=== PATIENT | female | born 1960 | race African-American/Black ===

== ENCOUNTER 2018-04-23 12:04 | Emergency (ER) | payer BC ==
[2018-04-23 13:42] LABS: POC GLUCOSE 275 mg/dL (70-99)
== END 2018-04-23 13:49 | disposition home or self-care (01) ==
LOC: ER 12:04
DX: L03.113 Cellulitis of right upper limb (principal); F41.9 Anxiety disorder, unspecified; E11.9 Type 2 diabetes mellitus without complications; I10 Essential (primary) hypertension
CPT/HCPCS: 82962; 99283

== ENCOUNTER 2020-03-30 12:45 | Inpatient (IN) | payer BC ==
[~2020-03-30] VITALS: Ht 160 cm; Wt 67.3 kg
[~2020-03-30 12:45] MED LIST: AZIT250T PO; CEPH500T PO; INSU100I11 SQ; LISI-130 PO; LISI1TAB19 PO; NAPR-514 PO; PARO20TA3 PO; SULF1TAB24 PO
[2020-03-30 13:27] LABS: HEMATOCRIT 39.1 % (36.0-47.0); HEMOGLOBIN 12.7 g/dL (12.0-15.5); LYMPH % 24 % (24-48); MEAN CORPUSCULAR HEMOGLOBIN 26 pg (25-35); MEAN CORPUSCULAR HGB CONC 33 g/dL (31-37); MEAN CORPUSCULAR VOLUME 80 fL (79-100); MONO % 7 % (0-9); NEUT % 64 % (31-73); PLATELET COUNT 245 x10^3/uL (140-400); RED BLOOD COUNT 4.89 x10^6/uL (3.50-5.40); RED CELL DISTRIBUTION WIDTH 17.8 % (11.5-14.5)
[2020-03-30 13:28] LABS: BASO % 2 % (0-3); EOS # 0.1 x10^3/uL (0.0-0.7); EOS % 3 % (0-3); LYMPH # 0.4 x10^3/uL (1.0-4.8); MONO # 0.1 x10^3/uL (0.0-1.1); NEUT # 1.1 x10^3/uL (1.8-7.7)
[2020-03-30 13:33] LABS: CALCIUM 8.8 mg/dL (8.5-10.1); CREATININE 0.9 mg/dL (0.6-1.0); POTASSIUM 3.6 mmol/L (3.5-5.1); WHITE BLOOD COUNT 1.7 x10^3/uL (4.0-11.0)
[2020-03-30 13:35] LABS: PROTHROMBIN TIME PATIENT 13.9 SEC (11.7-14.0)
[2020-03-30 13:38] LABS: ALBUMIN 3.3 g/dL (3.4-5.0); ALBUMIN/GLOBULIN RATIO 0.7 (1.0-1.7); D-DIMER 2.23 ug/mlFEU (0.00-0.50); TOTAL BILIRUBIN 0.6 mg/dL (0.2-1.0); TOTAL PROTEIN 7.8 g/dL (6.4-8.2)
--- NOTE | 2020-03-30 13:49 | RAD ---
PORTABLE CHEST 1V History: Cough, shortness of air Comparison: April 30, 2011 Findings: Single view of the chest is submitted. There is right internal jugular port catheter with the tip in the region of the mid to inferior aspect of the superior vena cava. There are small bilateral pleural effusions, left greater than right. There is bibasilar airspace opacity, left greater than right. No pneumothorax is identified. Pericardial cardiac silhouette is probably unchanged, partial obscured by pleural effusions and airspace opacity. Impression: 1. There are small left greater than right pleural effusions with adjacent bibasilar airspace opacity which may be due to infiltrates/atelectasis/edema. Electronically signed by: Amaury Ho MD (03/30/2020 1:46 PM) [id number]
[2020-03-30 14:06] LABS: % BASOS 2 % (0-3); % EOS 4 % (0-5); % LYMPHS 26 % (24-48); % MONOS 8 % (0-10); % SEGS 60 % (35-66); ANISOCYTOSIS SLIGHT; PLT ESTIMATE ADEQUATE (ADEQUATE); SCHISTOCYTES OCC
[2020-03-30 14:07] LABS: MICROCYTOSIS SLIGHT
[2020-03-30] MEDS: IOHEXOL 350 MG/ML 100 ML VIAL. IV ONE (14:30)
[2020-03-30] MEDS ORDERED: CONTRAST GIVEN. MC PRN (14:30)
--- NOTE | 2020-03-30 15:25 | RAD ---
Chest CTA History: Chest pain, shortness of air, colon cancer Technique: After bolus of intravenous contrast, CT imaging was performed of the chest. Multiplanar reconstruction images to include MIP reconstruction images are submitted. Exposure: One or more of the following individualized dose reduction techniques were utilized for this examination: 1. Automated exposure control 2. Adjustment of the mA and/or kV according to patient size 3. Use of iterative reconstruction technique. Comparison: None Findings: No pulmonary embolism is identified. There is [id number] dependent right pleural effusion. There is also small left pleural effusion, greater degree of subpulmonic component. There is prominent groundglass infiltrate of the right upper lobe with some interspersed smaller areas of consolidation. There is also some consolidation of the lingula with air bronchograms and also of the right middle lobe with severe bronchograms, difficult to exclude underlying nodularity in this region on this exam. There is somewhat spiculated right lower lobe pulmonary nodule about 1.1 cm image 101 series 3, also likely focus of nodularity of the right lower lobe about 0.8 cm image 104. There is groundglass nodule posteriorly in the right upper lobe about 0.9 cm image 62. There is noncalcified left lower lobe nodule about 0.9 cm image 89 series 3 with somewhat indistinct margins. There is some compressive atelectasis of the left lower lobe near the effusion. Heart is enlarged. There are some calcified bilateral hilar and mediastinal nodes, also some other small noncalcified nodes present. Thoracic aortic caliber is within normal limits, no intraluminal flap. Impression: 1. No pulmonary embolism is identified. 2. There are right greater than left pleural effusions. Heart is enlarged. Component of heart failure is a consideration. 3. There are areas of infiltrate bilaterally as stated, large area of groundglass density of the right upper lobe with some interspersed mild consolidation and areas of consolidation with air bronchograms most notable of the lingula and right middle lobe. There are also separate more defined pulmonary nodules as stated, largest of the right lower lobe with spiculated margin, metastases in the differential possibilities. Short-term follow-up within 1-2 months or PET/CT should be considered. 4. There are some calcified nodes bilaterally as may be sequela of granulomatous disease. Electronically signed by: Amaury Ho MD (03/30/2020 3:22 PM) [id number]
--- NOTE | 2020-03-30 15:32 | PHYS DOC ---
Past Medical History Past Medical History: Anxiety, Diabetes-Type II, Hypertension Additional Past Medical Histor: sciatica Past Surgical History: Other Additional Past Surgical Histo: nasal surgery , throat surgery, PORT PLACED 09/2019 Smoking Status: Former Smoker Alcohol Use: None Drug Use: None General Adult EDM: Chief Complaint: SHORTNESS OF AIR HPI: HPI: Patient is a 60 year old female who presented to ER today for evaluation of nonproductive cough, chest pain, trouble breathing for several days. Patient has history of colon cancer, undergoing chemo treatment, her last chemo was a week ago, she has 1 more treatment left. Patient denies any fever. Patient complains of trouble breathing with exertion. Patient says she is not been exposed to anybody who tested positive for COVID-19, but she went to grocery store. She also said she has altered taste sensation. Review of Systems: Review of Systems: Constitutional: Denies fever or chills. [] Eyes: Denies change in visual acuity. [] HENT: Positive for nasal congestion , no sore throat. [] Respiratory: Positive for cough and shortness of breath. [] Cardiovascular: Positive for chest pain, no edema. [] GI: Denies abdominal pain, nausea, vomiting, bloody stools or diarrhea. [] : Denies dysuria. [] Musculoskeletal: Denies back pain or joint pain. [] Integument: Denies rash. [] Neurologic: Denies headache, focal weakness or sensory changes. [] Endocrine: Denies polyuria or polydipsia. [] Lymphatic: Denies swollen glands. [] Psychiatric: Denies depression or anxiety. [] Heart Score: Risk Factors: Risk Factors: DM, Current or recent (<one month) smoker, HTN, HLP, family history of CAD, obesity. Risk Scores: Score 0 - 3: 2.5% MACE over next 6 weeks - Discharge Home Score 4 - 6: 20.3% MACE over next 6 weeks - Admit for Clinical Observation Score 7 - 10: 72.7% MACE over next 6 weeks - Early Invasive Strategies Current Medications: Current Medications Medications (Trade) Dose Ordered Sig/Efrain Start Time Stop Time Status Last Admin Dose Admin Info (CONTRAST GIVEN -- Rx MONITORING) 1 each PRN DAILY PRN 03/30/20 14:30 04/01/20 14:29 Iohexol (Omnipaque 350 Mg/ml) 90 ml 1X ONCE 03/30/20 14:30 03/30/20 14:31 DC Allergies: Allergies: Allergies Coded Allergies Type Severity Reaction Last Updated Verified No Known Drug Allergies 08/11/14 No Physical Exam: PE: Constitutional: Well developed, well nourished, no acute distress, non-toxic appearance. [] HENT: Normocephalic, atraumatic, bilateral external ears normal, oropharynx moist, no oral exudates, nose normal. [] Eyes: PERRLA, EOMI, conjunctiva normal, no discharge. [] Neck: Normal range of motion, no tenderness, supple, no stridor. [] Cardiovascular:Heart rate regular rhythm, no murmur [] Lungs & Thorax: crackles in both lungs, no respiratory distress. Abdomen: Bowel sounds normal, soft, no tenderness, no masses, no pulsatile masses. [] Skin: Warm, dry, no erythema, no rash. [] Back: No tenderness, no CVA tenderness. [] Extremities: No tenderness, no cyanosis, no clubbing, ROM intact, no edema. [] Neurologic: Alert and oriented X 3, normal motor function, normal sensory function, no focal deficits noted. [] Psychologic: Affect normal, judgement normal, mood normal. [] Current Patient Data: Labs: Laboratory Tests Test 03/30/20 13:10 White Blood Count 1.7 x10^3/uL (4.0-11.0) *L Red Blood Count 4.89 x10^6/uL (3.50-5.40) Hemoglobin 12.7 g/dL (12.0-15.5) Hematocrit 39.1 % (36.0-47.0) Mean Corpuscular Volume 80 fL (79-100) Mean Corpuscular Hemoglobin 26 pg (25-35) Mean Corpuscular Hemoglobin Concent 33 g/dL (31-37) Red Cell Distribution Width 17.8 % (11.5-14.5) H Platelet Count 245 x10^3/uL (140-400) Neutrophils (%) (Auto) 64 % (31-73) Lymphocytes (%) (Auto) 24 % (24-48) Monocytes (%) (Auto) 7 % (0-9) Eosinophils (%) (Auto) 3 % (0-3) Basophils (%) (Auto) 2 % (0-3) Neutrophils # (Auto) 1.1 x10^3/uL (1.8-7.7) L Lymphocytes # (Auto) 0.4 x10^3/uL (1.0-4.8) L Monocytes # (Auto) 0.1 x10^3/uL (0.0-1.1) Eosinophils # (Auto) 0.1 x10^3/uL (0.0-0.7) Basophils # (Auto) 0.0 x10^3/uL (0.0-0.2) Segmented Neutrophils % 60 % (35-66) Lymphocytes % 26 % (24-48) Monocytes % 8 % (0-10) Eosinophils % 4 % (0-5) Basophils % 2 % (0-3) Platelet Estimate Adequate (ADEQUATE) Anisocytosis Slight Microcytosis Slight Schistocytes Occ Prothrombin Time 13.9 SEC (11.7-14.0) Prothrombin Time INR 1.1 (0.8-1.1) Activated Partial Thromboplast Time 22 SEC (24-38) L Fibrinogen 319 mg/dL (200-440) D-Dimer (Obdulia) 2.23 ug/mlFEU (0.00-0.50) H Sodium Level 139 mmol/L (136-145) Potassium Level 3.6 mmol/L (3.5-5.1) Chloride Level 100 mmol/L (98-107) Carbon Dioxide Level 30 mmol/L (21-32) Anion Gap 9 (6-14) Blood Urea Nitrogen 13 mg/dL (7-20) Creatinine 0.9 mg/dL (0.6-1.0) Estimated GFR (Cockcroft-Gault) 77.0 BUN/Creatinine Ratio 14 (6-20) Glucose Level 272 mg/dL (70-99) H Lactic Acid Level 1.6 mmol/L (0.4-2.0) Calcium Level 8.8 mg/dL (8.5-10.1) Total Bilirubin 0.6 mg/dL (0.2-1.0) Aspartate Amino Transferase (AST) 22 U/L (15-37) Alanine Aminotransferase (ALT) 16 U/L (14-59) Alkaline Phosphatase 171 U/L (46-116) H Troponin I Quantitative 0.067 ng/mL (0.000-0.055) Total Protein 7.8 g/dL (6.4-8.2) Albumin 3.3 g/dL (3.4-5.0) L Albumin/Globulin Ratio 0.7 (1.0-1.7) L Laboratory Tests 03/30/20 13:10 Laboratory Tests 03/30/20 13:10 Vital Signs: Vital Signs Date Time Temp Pulse Resp B/P (MAP) Pulse Ox O2 Delivery O2 Flow Rate FiO2 03/30/20 14:34 103 185/108 (133) 93 Room Air 03/30/20 12:57 98.4 16 98.4 EKG: EKG: EKG was done at 1304, heart rate 115 bpm, sinus tachycardia, no ST segment elevation. EKG was read by this physician. Radiology/Procedures: Radiology/Procedures: [][facility] [address] [place] [address] IMAGING REPORT Signed PATIENT: SHAN QUINTANA EACCOUNT: [id number] : 1960 LOCATION: ER AGE: 60 SEX: F EXAM STATUS: REG ER ORD. PHYSICIAN: DAPHNIE RAM DO REASON: soa, chest pain, colon cancer patient PROCEDURE: CT ANGIOGRAPHY CHEST Chest CTA History: Chest pain, shortness of air, colon cancer Technique: After bolus of intravenous contrast, CT imaging was performed of the chest. Multiplanar reconstruction images to include MIP reconstruction images are submitted. Exposure: One or more of the following individualized dose reduction techniques were utilized for this examination: 1. Automated exposure control 2. Adjustment of the mA and/or kV according to patient size 3. Use of iterative reconstruction technique. Comparison: None Findings: No pulmonary embolism is identified. There is [id number] dependent right pleural effusion. There is also small left pleural effusion, greater degree of subpulmonic component. There is prominent groundglass infiltrate of the right upper lobe with some interspersed smaller areas of consolidation. There is also some consolidation of the lingula with air bronchograms and also of the right middle lobe with severe bronchograms, difficult to exclude underlying nodularity in this region on this exam. There is somewhat spiculated right lower lobe pulmonary nodule about 1.1 cm image 101 series 3, also likely focus of nodularity of the right lower lobe about 0.8 cm image 104. There is groundglass nodule posteriorly in the right upper lobe about 0.9 cm image 62. There is noncalcified left lower lobe nodule about 0.9 cm image 89 series 3 with somewhat indistinct margins. There is some compressive atelectasis of the left lower lobe near the effusion. Heart is enlarged. There are some calcified bilateral hilar and mediastinal nodes, also some other small noncalcified nodes present. Thoracic aortic caliber is within normal limits, no intraluminal flap. Impression: 1. No pulmonary embolism is identified. 2. There are right greater than left pleural effusions. Heart is enlarged. Component of heart failure is a consideration. 3. There are areas of infiltrate bilaterally as stated, large area of groundglass density of the right upper lobe with some interspersed mild consolidation and areas of consolidation with air bronchograms most notable of the lingula and right middle lobe. There are also separate more defined pulmonary nodules as stated, largest of the right lower lobe with spiculated margin, metastases in the differential possibilities. Short-term follow-up within 1-2 months or PET/CT should be considered. 4. There are some calcified nodes bilaterally as may be sequela of granulomatous disease. Electronically signed by: Little Ho MD (03/30/2020 3:22 PM) [id number] DICTATED and SIGNED BY: LITTLE HO MD DATE: 03/30/20 1522 Course & Med Decision Making: Course & Med Decision Making Pertinent Labs and Imaging studies reviewed. (See chart for details) Patient is a 60-year-old female who presented to ER today for evaluation of trouble breathing, nonproductive cough, chest pain. She has history of colon cancer that currently under chemotherapy. Her last chemotherapy was a week ago. She has 1 more treatment left. Patient had no fever, her lab work showed she had neutropenia. CT scan her chest did not show any pulmonary embolus however shows a diffuse groundglass appearance, MORE on the right side. Patient is suspected of COVID-19 infection. Patient WILL be admitted to hospital. Dragon Disclaimer: Dragon Disclaimer: This electronic medical record was generated, in whole or in part, using a voice recognition dictation system. Departure Departure Impression: Primary Impression: Suspected COVID-19 virus infection Additional Impressions: Dyspnea Neutropenia Disposition: 09 ADMITTED INPATIENT Admitting Physician: DAGOBERTO (Dr. BLEDSOE) Condition: STABLE Referrals: LATOYA OROPEZA [employer] (PCP) DAPHNIE RAM DO March 30, 2020 15:32
[2020-03-30] MEDS ORDERED: ONDANSETRON PF 4 MG/2 ML VIAL. IV PRN ×2 (17:30→20:15)
[2020-03-30] MEDS ORDERED: LISI40TA2 PO (17:37)
[2020-03-30] MEDS ORDERED: FLUT16SP NAS (17:37)
[2020-03-30] MEDS ORDERED: PARO40TA3 PO (17:37)
[2020-03-30] MEDS ORDERED: INSU100I13 SQ (17:37)
--- NOTE | 2020-03-30 17:39 | PDOC1 ---
History and Physical Date of Admission Date of Admission DATE: 03/30/20 TIME: 17:08 Identification/Chief Complaint Chief Complaint Shortness of breath Source Source: Patient History of Present Illness History of Present Illness Ms Alejandro is a 60yo F w/ PMHx Anxiety, Diabetes-Type II, Hypertension, colon ca s/p resection 09/2019 after abnormal colonoscopy with , and underwent resection with Dr. Ferreira at [facility], with subsequent port placement and has been under treatment presumably with FOLFOX with Dr. Rojas. Her last treatment was upcoming. Over the last week she has been experiencing some epigastric discomfort and intermittent constipation and some mild shortness of breath. She has associated nonproductive cough, chest pain on deep inspiration. She went to urgent care today had abnormal chest x-ray. She has had no fevers no recent sick contacts, though she does note every after her chemo treatments she does go to the grocery store and has been uncomfortable with a n umber of people who do not wear masks during the coronavirus pandemic. She herself does wear a mask and frequently washes her hands and face. Labs reveal neutropenia WBC 1.7 with ANC 1.1, Hb 12.7, Platelets 245, Albumin 3.3, Na 139, K 3.6, BUN 13, Cr 0.9, glucose 272, Troponin 0.067, BNP in 4000s, procalcitonin negative. INR 1.1, d dimer elevated. CT scan her chest did not show any pulmonary embolus however shows a diffuse groundglass appearance, MORE on the right side. Patient is suspected of COVID- 19 infection. Patient WILL be admitted to hospital for further treatment. Past Medical History Cardiovascular: HTN Heme/Onc: Cancer (colon) Psych: Anxiety Endocrine: Diabetes Past Surgical History Past Surgical History: Colon Resection Family History Family History: Cancer (Colon cancer in father), Diabetes, Hypertension Social History Smoke: Quit ALCOHOL: none Drugs: None Current Problem List Problem List Problems Medical Problems: (1) Suspected COVID-19 virus infection Status: Acute Current Medications Current Medications Current Medications Iohexol (Omnipaque 350 Mg/ml) 90 ml 1X ONCE IV ; Start 03/30/20 at 14:30; Stop 03/30/20 at 14:31; Status DC Info (CONTRAST GIVEN -- Rx MONITORING) 1 each PRN DAILY PRN MC SEE COMMENTS; Start 03/30/20 at 14:30; Stop 04/01/20 at 14:29 Active Scripts Active Cephalexin 500 Mg Tablet 1,000 Mg PO BID 10 Days Bactrim Ds Tablet (Sulfamethoxazole/Trimethoprim) 1 Each Tablet 1 Tab PO BID 10 Days Zithromax (Azithromycin) 250 Mg Tablet 1 Pkg PO UD Reported Humalog (Insulin Lispro) 100 Unit/1 Ml Insuln.pen Unknown Dose SQ Lisinopril 40 Mg Tablet 1 Tab PO DAILY Naproxen 500 Mg Tablet 500 Mg PO Paroxetine Hcl 20 Mg Tablet 20 Mg PO Allergies Allergies: Coded Allergies: No Known Drug Allergies (Unverified , 08/11/14) ROS General: YES: Fatigue, Malaise; No: Chills, Night Sweats, Appetite, Other PSYCHOLOGICAL ROS: YES: Anxiety; No: Behavioral Disorder, Concentration difficultie, Decreased libido, Depression, Disorientation, Hallucinations, Hostility, Irritablity, Memory difficulties, Mood Swings, Obsessive thoughts, Physical abuse, Sexual abuse, Sleep disturbances, Suicidal ideation, Other Eyes: No Blurry vision, No Decreased vision, No Double vision, No Dry eyes, No Excessive tearing, No Eye Pain, No Itchy Eyes, No Loss of vision, No Photophobia, No Scotomata, No Uses contacts, No Uses glasses, No Other HEENT: No: Heacaches, Visual Changes, Hearing change, Nasal congestion, Nasal discharge, Oral lesions, Sinus pain, Sore Throat, Epistaxis, Sneezing, Snoring, Tinnitus, Vertigo, Vocal changes, Other ALLERGY AND IMMUNOLOGY: No: Hives, Insect Bite Sensitivity, Itchy/Watery Eyes, Nasal Congestion, Post Nasal Drip, Seasonal Allergies, Other Hematological and Lymphatic: No: Bleeding Problems, Blood Clots, Blood Transfusions, Brusing, Night Sweats, Pallor, Swollen Lymph Nodes, Other ENDOCRINE: No: Breast Changes, Galactorrhea, Hair Pattern Changes, Hot Flashes, Malaise/lethargy, Mood Swings, Palpitations, Polydipsia/polyuria, Skin Changes, Temperature Intolerance, Unexpected Weight Changes, Other Breast: No New/Changing Breast Lumps, No Nipple changes, No Nipple discharge, No Other Respiratory: YES: Cough, Shortness of breath, SOB with excertion; No: Hemoptysis, Orthopnea, Pleuritic Pain, Sputum Changes, Stridor, Tachypnea, Wheezing, Other Cardiovascular: yes Chest Pain; No Palpitations, No Orthopnea, No Paroxysmal Noc. Dyspnea, No Edema, No Lt Headedness, No Other Gastrointestinal: Yes Abdominal Pain, Yes Constipation; No Nausea, No Vomiting, No Diarrhea, No Melena, No Hematochezia, No Other Genitourinary: No Dysuria, No Frequency, No Incontinence, No Hematuria, No Retention, No Discharge, No Urgency, No Pain, No Flank Pain, No Other, No , No , No , No , No , No , No Musculoskeletal: No Gait Disturbance, No Joint Pain, No Joint Stiffness, No Joint Swelling, No Muscle Pain, No Muscular Weakness, No Pain In:, No Swelling In:, No Other Neurological: No Behavorial Changes, No Bowel/Bladder ControlChng, No Confusion, No Dizziness, No Gait Disturbance, No Headaches, No Impaired Coord/balance, No Memory Loss, No Numbness/Tingling, No Seizures, No Speech Problems, No Tremors, No Visual Changes, No Weakness, No Other Skin: No Dry Skin, No Eczema, No Hair Changes, No Lumps, No Mole Changes, No Mottling, No Nail Changes, No Pruritus, No Rash, No Skin Lesion Changes, No Other, No Acne Physical Exam General: Alert, Oriented X3, Cooperative, No acute distress HEENT: Atraumatic, PERRLA, EOMI, Mucous membr. moist/pink Lungs: Other (Bilateral fine crackles) Heart: S1S2, RRR, no thrills, no rubs, no gallops, no murmurs Abdomen: Normal bowel sounds, Soft, No tenderness, No hepatosplenomegaly, No masses Rectal Exam: not examined Extremities: No clubbing, No cyanosis, No edema, Normal pulses, No tenderness/swelling Skin: No rashes, No breakdown, No significant lesion Neuro: Normal gait, Normal speech, Strength at 5/5 X4 ext, Normal tone, Sensation intact, Cranial nerves 3-12 NL, Reflexes 2+ Psych/Mental Status: Mental status NL, Mood NL Vitals Vitals Vital Signs Date Time Temp Pulse Resp B/P (MAP) Pulse Ox O2 Delivery O2 Flow Rate FiO2 03/30/20 15:17 111 202/108 (139) 92 Room Air 03/30/20 12:57 98.4 16 98.4 Labs Labs Laboratory Tests Test 03/30/20 13:10 White Blood Count 1.7 x10^3/uL (4.0-11.0) Red Blood Count 4.89 x10^6/uL (3.50-5.40) Hemoglobin 12.7 g/dL (12.0-15.5) Hematocrit 39.1 % (36.0-47.0) Mean Corpuscular Volume 80 fL (79-100) Mean Corpuscular Hemoglobin 26 pg (25-35) Mean Corpuscular Hemoglobin Concent 33 g/dL (31-37) Red Cell Distribution Width 17.8 % (11.5-14.5) Platelet Count 245 x10^3/uL (140-400) Neutrophils (%) (Auto) 64 % (31-73) Lymphocytes (%) (Auto) 24 % (24-48) Monocytes (%) (Auto) 7 % (0-9) Eosinophils (%) (Auto) 3 % (0-3) Basophils (%) (Auto) 2 % (0-3) Neutrophils # (Auto) 1.1 x10^3/uL (1.8-7.7) Lymphocytes # (Auto) 0.4 x10^3/uL (1.0-4.8) Monocytes # (Auto) 0.1 x10^3/uL (0.0-1.1) Eosinophils # (Auto) 0.1 x10^3/uL (0.0-0.7) Basophils # (Auto) 0.0 x10^3/uL (0.0-0.2) Segmented Neutrophils % 60 % (35-66) Lymphocytes % 26 % (24-48) Monocytes % 8 % (0-10) Eosinophils % 4 % (0-5) Basophils % 2 % (0-3) Platelet Estimate Adequate (ADEQUATE) Anisocytosis Slight Microcytosis Slight Schistocytes Occ Prothrombin Time 13.9 SEC (11.7-14.0) Prothromb Time International Ratio 1.1 (0.8-1.1) Activated Partial Thromboplast Time 22 SEC (24-38) Fibrinogen 319 mg/dL (200-440) D-Dimer (Obdulia) 2.23 ug/mlFEU (0.00-0.50) Sodium Level 139 mmol/L (136-145) Potassium Level 3.6 mmol/L (3.5-5.1) Chloride Level 100 mmol/L (98-107) Carbon Dioxide Level 30 mmol/L (21-32) Anion Gap 9 (6-14) Blood Urea Nitrogen 13 mg/dL (7-20) Creatinine 0.9 mg/dL (0.6-1.0) Estimated GFR (Cockcroft-Gault) 77.0 BUN/Creatinine Ratio 14 (6-20) Glucose Level 272 mg/dL (70-99) Lactic Acid Level 1.6 mmol/L (0.4-2.0) Calcium Level 8.8 mg/dL (8.5-10.1) Total Bilirubin 0.6 mg/dL (0.2-1.0) Aspartate Amino Transf (AST/SGOT) 22 U/L (15-37) Alanine Aminotransferase (ALT/SGPT) 16 U/L (14-59) Alkaline Phosphatase 171 U/L (46-116) Troponin I Quantitative 0.067 ng/mL (0.000-0.055) Total Protein 7.8 g/dL (6.4-8.2) Albumin 3.3 g/dL (3.4-5.0) Albumin/Globulin Ratio 0.7 (1.0-1.7) Laboratory Tests Test 03/30/20 13:10 White Blood Count 1.7 x10^3/uL (4.0-11.0) Red Blood Count 4.89 x10^6/uL (3.50-5.40) Hemoglobin 12.7 g/dL (12.0-15.5) Hematocrit 39.1 % (36.0-47.0) Mean Corpuscular Volume 80 fL (79-100) Mean Corpuscular Hemoglobin 26 pg (25-35) Mean Corpuscular Hemoglobin Concent 33 g/dL (31-37) Red Cell Distribution Width 17.8 % (11.5-14.5) Platelet Count 245 x10^3/uL (140-400) Neutrophils (%) (Auto) 64 % (31-73) Lymphocytes (%) (Auto) 24 % (24-48) Monocytes (%) (Auto) 7 % (0-9) Eosinophils (%) (Auto) 3 % (0-3) Basophils (%) (Auto) 2 % (0-3) Neutrophils # (Auto) 1.1 x10^3/uL (1.8-7.7) Lymphocytes # (Auto) 0.4 x10^3/uL (1.0-4.8) Monocytes # (Auto) 0.1 x10^3/uL (0.0-1.1) Eosinophils # (Auto) 0.1 x10^3/uL (0.0-0.7) Basophils # (Auto) 0.0 x10^3/uL (0.0-0.2) Segmented Neutrophils % 60 % (35-66) Lymphocytes % 26 % (24-48) Monocytes % 8 % (0-10) Eosinophils % 4 % (0-5) Basophils % 2 % (0-3) Platelet Estimate Adequate (ADEQUATE) Anisocytosis Slight Microcytosis Slight Schistocytes Occ Prothrombin Time 13.9 SEC (11.7-14.0) Prothromb Time International Ratio 1.1 (0.8-1.1) Activated Partial Thromboplast Time 22 SEC (24-38) Fibrinogen 319 mg/dL (200-440) D-Dimer (Obdulia) 2.23 ug/mlFEU (0.00-0.50) Sodium Level 139 mmol/L (136-145) Potassium Level 3.6 mmol/L (3.5-5.1) Chloride Level 100 mmol/L (98-107) Carbon Dioxide Level 30 mmol/L (21-32) Anion Gap 9 (6-14) Blood Urea Nitrogen 13 mg/dL (7-20) Creatinine 0.9 mg/dL (0.6-1.0) Estimated GFR (Cockcroft-Gault) 77.0 BUN/Creatinine Ratio 14 (6-20) Glucose Level 272 mg/dL (70-99) Lactic Acid Level 1.6 mmol/L (0.4-2.0) Calcium Level 8.8 mg/dL (8.5-10.1) Total Bilirubin 0.6 mg/dL (0.2-1.0) Aspartate Amino Transf (AST/SGOT) 22 U/L (15-37) Alanine Aminotransferase (ALT/SGPT) 16 U/L (14-59) Alkaline Phosphatase 171 U/L (46-116) Troponin I Quantitative 0.067 ng/mL (0.000-0.055) Total Protein 7.8 g/dL (6.4-8.2) Albumin 3.3 g/dL (3.4-5.0) Albumin/Globulin Ratio 0.7 (1.0-1.7) Images Images CTPA No pulmonary embolism is identified. There is [id number] dependent right pleural effusion. There is also small left pleural effusion, greater degree of subpulmonic component. There is prominent groundglass infiltrate of the right upper lobe with some interspersed smaller areas of consolidation. There is also some consolidation of the lingula with air bronchograms and also of the right middle lobe with severe bronchograms, difficult to exclude underlying nodularity in this region on this exam. There is somewhat spiculated right lower lobe pulmonary nodule about 1.1 cm image 101 series 3, also likely focus of nodula rity of the right lower lobe about 0.8 cm image 104. There is groundglass nodule posteriorly in the right upper lobe about 0.9 cm image 62. There is noncalcified left lower lobe nodule about 0.9 cm image 89 series 3 with somewhat indistinct margins. There is some compressive atelectasis of the left lower lobe near the effusion. Heart is enlarged. There are some calcified bilateral hilar and mediastinal nodes, also some other small noncalcified nodes present. Thoracic aortic caliber is within normal limits, no intraluminal flap. Impression: 1. No pulmonary embolism is identified. 2. There are right greater than left pleural effusions. Heart is enlarged. Component of heart failure is a consideration. 3. There are areas of infiltrate bilaterally as stated, large area of groundglass density of the right upper lobe with some interspersed mild consolidation and areas of consolidation with air bronchograms most notable of the lingula and right middle lobe. There are also separate more defined pulmonary nodules as stated, largest of the right lower lobe with spiculated margin, metastases in the differential possibilities. Short-term follow-up within 1-2 months or PET/CT should be considered. 4. There are some calcified nodes bilaterally as may be sequela of granulomatous disease. VTE Prophylaxis Ordered VTE Prophylaxis Devices: No VTE Pharmacological Prophylaxi: Yes Assessment/Plan Assessment/Plan A/P: Shortness of breath - with groundglass infiltrates bilaterally during SARS-CoV-2 pandemic and high risk patient she has been tested. With cardiomegaly and elevated BNP will diurese as well. Constipation - will start on bowel regimen. Chest pain - likely CHF, newly diagnosed, will r/o COVID as above, trend troponins Neutropenia - ANC 1.1, no fevers, no elevation in procalcitonin. No clear indication for antibiotics at this time. Will monitor closely Cardiomegaly - noted on CT and with elevated BNP will diurese, may have a component of undiagnosed CHF, will treat as such Abnormal CT chest - will have pulmonary medicine consulted for spiculated nodule and inform her oncologist of abnormal finding to ensure on outpatient PET this is not metastatic disease. Anxiety - low dose ativan prn. Cont paxil Diabetes-Type II - hold metformin given contrast administration, will place on sliding scale inpatient Hypertension - cont meds Colon ca s/p resection 09/2019 - her course has been appropriate. Will monitor FEN - ADA diet PPX - lovenox, increased dosing given elevated risk of thrombosis with her active cancer and pending COVID testing FULL CODE Dispo - inpatient telemetry monitoring COVID-19 CRITERIA: The patient was evaluated during the global COVID-19 pandemic, and that diagnosis was suspected/considered upon their initial presentation. Their evaluation, treatment and testing was consistent with current guidelines for patients who present with complaints or symptoms that may be related to COVID-19. UMM BLEDSOE MD March 30, 2020 17:39
[2020-03-30] MEDS ORDERED: DEXTROSE 50% 25 GM / 50ML DISP.SYRIN. IV PRN (17:45)
[2020-03-30] MEDS ORDERED: MAGNESIUM CITRATE 296 ML SOLUTION. PO PRN (20:15)
[2020-03-30] MEDS: ENOXAPARIN 40 MG/0.4 ML SYRINGE. SQ SCH ×2 (21:00→23:11)
[2020-03-30] MEDS: POLYETHYLENE GLYCOL 3350 17 GM PACKET. PO SCH ×2 (21:00→23:08)
[2020-03-30] MEDS: INSULIN LISPRO 300 UNITS/3 ML VIAL. SQ SCH ×2 (21:00→23:37)
[2020-03-30] MEDS: FLUTICASONE 50MCG/NASAL SPRAY 16GM BOTTLE. NS SCH ×2 (21:00→23:07)
[2020-03-30] MEDS ORDERED: POTASSIUM CHLORIDE 20 MEQ TABLET.ER. PO ONE (21:30)
[2020-03-30] MEDS ORDERED: FUROSEMIDE 20 MG/2 ML VIAL. IVP ONE (21:30)
[2020-03-30] MEDS: ZINC SULFATE 220 MG CAPSULE. PO SCH (21:34)
[2020-03-30 22:00] VITALS: BP 176/89
[2020-03-30 23:00] VITALS: BP 193/102
[2020-03-30] MEDS: PSYLLIUM HUSK (SUGAR FREE) 1 PKT PACKET PO SCH (23:08)
[2020-03-30] MEDS: INSULIN GLARGINE SYRINGE. SQ SCH (23:17)
[2020-03-31] VITALS (8 sets, daily range): BP systolic 135–177; BP diastolic 74–101
[2020-03-31] MEDS: hydrALAZINE 20 MG/ML VIAL. IVP PRN ×2 (01:04→12:23)
[2020-03-31] MEDS: LORazepam 1 MG TABLET PO PRN ×2 (02:49→12:23)
[2020-03-31 04:26] LABS: CALCIUM 8.7 mg/dL (8.5-10.1); CREATININE 0.7 mg/dL (0.6-1.0); GFR 102.9; POTASSIUM 3.5 mmol/L (3.5-5.1)
[2020-03-31 04:41] LABS: BASO % 1 % (0-3); EOS # 0.1 x10^3/uL (0.0-0.7); EOS % 4 % (0-3); HEMATOCRIT 38.7 % (36.0-47.0); HEMOGLOBIN 12.7 g/dL (12.0-15.5); LYMPH # 0.4 x10^3/uL (1.0-4.8); LYMPH % 26 % (24-48); MEAN CORPUSCULAR HEMOGLOBIN 26 pg (25-35); MEAN CORPUSCULAR HGB CONC 33 g/dL (31-37); MEAN CORPUSCULAR VOLUME 80 fL (79-100); MONO # 0.1 x10^3/uL (0.0-1.1); MONO % 6 % (0-9); NEUT % 63 % (31-73); PLATELET COUNT 234 x10^3/uL (140-400); RED BLOOD COUNT 4.84 x10^6/uL (3.50-5.40); RED CELL DISTRIBUTION WIDTH 17.5 % (11.5-14.5)
[2020-03-31 04:58] LABS: WHITE BLOOD COUNT 1.5 x10^3/uL (4.0-11.0)
[2020-03-31] MEDS: INSULIN LISPRO 300 UNITS/3 ML VIAL. SQ SCH ×5 (07:30→21:49)
[2020-03-31] MEDS ORDERED: POTASSIUM CHLORIDE 20 MEQ TABLET.ER. PO ONE (08:15)
--- NOTE | 2020-03-31 08:16 | PDOC ---
PROGRESS NOTES Chief Complaint Chief Complaint A/P: Shortness of breath - with groundglass infiltrates bilaterally during SARS-CoV-2 pandemic and high risk patient she has been tested. With cardiomegaly and eleva bere BNP will diurese as well. Constipation - will start on bowel regimen. Chest pain - likely CHF, newly diagnosed, will r/o COVID as above, trend troponins Neutropenia - ANC 1.1, no fevers, no elevation in procalcitonin. No clear indication for antibiotics at this time. Will monitor closely Cardiomegaly - noted on CT and with elevated BNP will diurese, may have a component of undiagnosed CHF, will treat as such Abnormal CT chest - will have pulmonary medicine consulted for spiculated nodule and inform her oncologist of abnormal finding to ensure on outpatient PET this is not metastatic disease. Anxiety - low dose ativan prn. Cont paxil Diabetes-Type II - hold metformin given contrast administration, will place on sliding scale inpatient Hypertension - cont meds Colon ca s/p resection 09/2019 - her course has been appropriate. Will monitor FEN - ADA diet PPX - lovenox, increased dosing given elevated risk of thrombosis with her active cancer and pending COVID testing FULL CODE Dispo - inpatient telemetry monitoring COVID-19 CRITERIA: The patient was evaluated during the global COVID-19 pandemic, and that diagnosis was suspected/considered upon their initial presentation. Their evaluation, treatment and testing was consistent with current guidelines for patients who present with complaints or symptoms that may be related to COVID-19. History of Present Illness History of Present Illness Ms Alejandro is a 60yo F w/ PMHx Anxiety, Diabetes-Type II, Hypertension, colon ca s/p resection 09/2019 after abnormal colonoscopy with , and underwent resection with Dr. Ferreira at [facility], with subsequent port placement and has been under treatment presumably with FOLFOX with Dr. Rojas. Her last treatment was upcoming. Over the last week she has been experiencing some epigastric discomfort and intermittent constipation and some mild shortness of breath. She has associated nonproductive cough, chest pain on deep inspiration. She went to urgent care today had abnormal chest x-ray. She has had no fevers no recent sick contacts, though she does note every after her chemo treatments she does go to the grocery store and has been uncomfortable with a number of people who do not wear masks during the coronavirus pandemic. She herself does wear a mask and frequently washes her hands and face. Labs reveal neutropenia WBC 1.7 with ANC 1.1, Hb 12.7, Platelets 245, Albumin 3.3, Na 139, K 3.6, BUN 13, Cr 0.9, glucose 272, Troponin 0.067, BNP in 4000s, procalcitonin negative. INR 1.1, d dimer elevated. CT scan her chest did not show any pulmonary embolus however shows a diffuse groundglass appearance, MORE on the right side. Patient is suspected of COVID- 19 infection. Patient admitted to hospital for further treatment. WBC 1.5 today. ANC 1. Troponin decrased from 0.060 to 0.052. She feels better, but now is persistently tachycardic in the 140s. Shortness of breath and constipation improved. Not hypoxic. Plan: Bolus 1L NSS Will d/c pulmonology her abnormal CT findings and Cardiology as well. This was treated as pulmonary edema/chf on 03/30/20 but this does not seem to the full picture. Vitals Vitals Vital Signs Date Time Temp Pulse Resp B/P (MAP) Pulse Ox O2 Delivery O2 Flow Rate FiO2 03/31/20 03:00 98.6 101 18 164/79 (107) 97 Room Air 98.6 Physical Exam General: Alert, Oriented X3, Cooperative Heart: Regular rate, Normal S1, Normal S2 Lungs: Crackles Abdomen: Normal bowel sounds, Soft Extremities: No clubbing, No cyanosis Skin: No rashes, No breakdown Labs LABS Laboratory Tests Test 03/30/20 13:10 03/30/20 21:40 03/30/20 23:28 03/31/20 03:30 White Blood Count 1.7 x10^3/uL (4.0-11.0) 1.5 x10^3/uL (4.0-11.0) Red Blood Count 4.89 x10^6/uL (3.50-5.40) 4.84 x10^6/uL (3.50-5.40) Hemoglobin 12.7 g/dL (12.0-15.5) 12.7 g/dL (12.0-15.5) Hematocrit 39.1 % (36.0-47.0) 38.7 % (36.0-47.0) Mean Corpuscular Volume 80 fL (79-100) 80 fL (79-100) Mean Corpuscular Hemoglobin 26 pg (25-35) 26 pg (25-35) Mean Corpuscular Hemoglobin Concent 33 g/dL (31-37) 33 g/dL (31-37) Red Cell Distribution Width 17.8 % (11.5-14.5) 17.5 % (11.5-14.5) Platelet Count 245 x10^3/uL (140-400) 234 x10^3/uL (140-400) Neutrophils (%) (Auto) 64 % (31-73) 63 % (31-73) Lymphocytes (%) (Auto) 24 % (24-48) 26 % (24-48) Monocytes (%) (Auto) 7 % (0-9) 6 % (0-9) Eosinophils (%) (Auto) 3 % (0-3) 4 % (0-3) Basophils (%) (Auto) 2 % (0-3) 1 % (0-3) Neutrophils # (Auto) 1.1 x10^3/uL (1.8-7.7) 1.0 x10^3/uL (1.8-7.7) Lymphocytes # (Auto) 0.4 x10^3/uL (1.0-4.8) 0.4 x10^3/uL (1.0-4.8) Monocytes # (Auto) 0.1 x10^3/uL (0.0-1.1) 0.1 x10^3/uL (0.0-1.1) Eosinophils # (Auto) 0.1 x10^3/uL (0.0-0.7) 0.1 x10^3/uL (0.0-0.7) Basophils # (Auto) 0.0 x10^3/uL (0.0-0.2) 0.0 x10^3/uL (0.0-0.2) Segmented Neutrophils % 60 % (35-66) Lymphocytes % 26 % (24-48) Monocytes % 8 % (0-10) Eosinophils % 4 % (0-5) Basophils % 2 % (0-3) Platelet Estimate Adequate (ADEQUATE) Anisocytosis Slight Microcytosis Slight Schistocytes Occ Prothrombin Time 13.9 SEC (11.7-14.0) Prothromb Time International Ratio 1.1 (0.8-1.1) Activated Partial Thromboplast Time 22 SEC (24-38) Fibrinogen 319 mg/dL (200-440) D-Dimer (Obdulia) 2.23 ug/mlFEU (0.00-0.50) Sodium Level 139 mmol/L (136-145) 138 mmol/L (136-145) Potassium Level 3.6 mmol/L (3.5-5.1) 3.5 mmol/L (3.5-5.1) Chloride Level 100 mmol/L (98-107) 100 mmol/L (98-107) Carbon Dioxide Level 30 mmol/L (21-32) 31 mmol/L (21-32) Anion Gap 9 (6-14) 7 (6-14) Blood Urea Nitrogen 13 mg/dL (7-20) 14 mg/dL (7-20) Creatinine 0.9 mg/dL (0.6-1.0) 0.7 mg/dL (0.6-1.0) Estimated GFR (Cockcroft-Gault) 77.0 102.9 BUN/Creatinine Ratio 14 (6-20) Glucose Level 272 mg/dL (70-99) 273 mg/dL (70-99) Lactic Acid Level 1.6 mmol/L (0.4-2.0) Calcium Level 8.8 mg/dL (8.5-10.1) 8.7 mg/dL (8.5-10.1) Magnesium Level 1.9 mg/dL (1.8-2.4) Total Bilirubin 0.6 mg/dL (0.2-1.0) Aspartate Amino Transf (AST/SGOT) 22 U/L (15-37) Alanine Aminotransferase (ALT/SGPT) 16 U/L (14-59) Alkaline Phosphatase 171 U/L (46-116) Troponin I Quantitative 0.067 ng/mL (0.000-0.055) 0.060 ng/mL (0.000-0.055) OW-Pxn-V-Type Natriuretic Peptide 4281 pg/mL (0-124) Total Protein 7.8 g/dL (6.4-8.2) Albumin 3.3 g/dL (3.4-5.0) Albumin/Globulin Ratio 0.7 (1.0-1.7) Procalcitonin < 0.10 ng/mL (0.00-0.10) Glucose (Fingerstick) 269 mg/dL (70-99) 283 mg/dL (70-99) Test 03/31/20 06:30 03/31/20 07:25 Troponin I Quantitative 0.052 ng/mL (0.000-0.055) Glucose (Fingerstick) 171 mg/dL (70-99) Assessment and Plan Assessmemt and Plan Problems Medical Problems: (1) Dyspnea Status: Acute (2) Neutropenia Status: Acute (3) Suspected COVID-19 virus infection Status: Acute Comment Review of Relevant I have reviewed the following items primitivo (where applicable) has been applied. Labs Laboratory Tests Test 03/30/20 13:10 03/30/20 21:40 03/30/20 23:28 03/31/20 03:30 White Blood Count 1.7 x10^3/uL (4.0-11.0) 1.5 x10^3/uL (4.0-11.0) Red Blood Count 4.89 x10^6/uL (3.50-5.40) 4.84 x10^6/uL (3.50-5.40) Hemoglobin 12.7 g/dL (12.0-15.5) 12.7 g/dL (12.0-15.5) Hematocrit 39.1 % (36.0-47.0) 38.7 % (36.0-47.0) Mean Corpuscular Volume 80 fL (79-100) 80 fL (79-100) Mean Corpuscular Hemoglobin 26 pg (25-35) 26 pg (25-35) Mean Corpuscular Hemoglobin Concent 33 g/dL (31-37) 33 g/dL (31-37) Red Cell Distribution Width 17.8 % (11.5-14.5) 17.5 % (11.5-14.5) Platelet Count 245 x10^3/uL (140-400) 234 x10^3/uL (140-400) Neutrophils (%) (Auto) 64 % (31-73) 63 % (31-73) Lymphocytes (%) (Auto) 24 % (24-48) 26 % (24-48) Monocytes (%) (Auto) 7 % (0-9) 6 % (0-9) Eosinophils (%) (Auto) 3 % (0-3) 4 % (0-3) Basophils (%) (Auto) 2 % (0-3) 1 % (0-3) Neutrophils # (Auto) 1.1 x10^3/uL (1.8-7.7) 1.0 x10^3/uL (1.8-7.7) Lymphocytes # (Auto) 0.4 x10^3/uL (1.0-4.8) 0.4 x10^3/uL (1.0-4.8) Monocytes # (Auto) 0.1 x10^3/uL (0.0-1.1) 0.1 x10^3/uL (0.0-1.1) Eosinophils # (Auto) 0.1 x10^3/uL (0.0-0.7) 0.1 x10^3/uL (0.0-0.7) Basophils # (Auto) 0.0 x10^3/uL (0.0-0.2) 0.0 x10^3/uL (0.0-0.2) Segmented Neutrophils % 60 % (35-66) Lymphocytes % 26 % (24-48) Monocytes % 8 % (0-10) Eosinophils % 4 % (0-5) Basophils % 2 % (0-3) Platelet Estimate Adequate (ADEQUATE) Anisocytosis Slight Microcytosis Slight Schistocytes Occ Prothrombin Time 13.9 SEC (11.7-14.0) Prothromb Time International Ratio 1.1 (0.8-1.1) Activated Partial Thromboplast Time 22 SEC (24-38) Fibrinogen 319 mg/dL (200-440) D-Dimer (Obdulia) 2.23 ug/mlFEU (0.00-0.50) Sodium Level 139 mmol/L (136-145) 138 mmol/L (136-145) Potassium Level 3.6 mmol/L (3.5-5.1) 3.5 mmol/L (3.5-5.1) Chloride Level 100 mmol/L (98-107) 100 mmol/L (98-107) Carbon Dioxide Level 30 mmol/L (21-32) 31 mmol/L (21-32) Anion Gap 9 (6-14) 7 (6-14) Blood Urea Nitrogen 13 mg/dL (7-20) 14 mg/dL (7-20) Creatinine 0.9 mg/dL (0.6-1.0) 0.7 mg/dL (0.6-1.0) Estimated GFR (Cockcroft-Gault) 77.0 102.9 BUN/Creatinine Ratio 14 (6-20) Glucose Level 272 mg/dL (70-99) 273 mg/dL (70-99) Lactic Acid Level 1.6 mmol/L (0.4-2.0) Calcium Level 8.8 mg/dL (8.5-10.1) 8.7 mg/dL (8.5-10.1) Magnesium Level 1.9 mg/dL (1.8-2.4) Total Bilirubin 0.6 mg/dL (0.2-1.0) Aspartate Amino Transf (AST/SGOT) 22 U/L (15-37) Alanine Aminotransferase (ALT/SGPT) 16 U/L (14-59) Alkaline Phosphatase 171 U/L (46-116) Troponin I Quantitative 0.067 ng/mL (0.000-0.055) 0.060 ng/mL (0.000-0.055) BJ-Zve-D-Type Natriuretic Peptide 4281 pg/mL (0-124) Total Protein 7.8 g/dL (6.4-8.2) Albumin 3.3 g/dL (3.4-5.0) Albumin/Globulin Ratio 0.7 (1.0-1.7) Procalcitonin < 0.10 ng/mL (0.00-0.10) Glucose (Fingerstick) 269 mg/dL (70-99) 283 mg/dL (70-99) Test 03/31/20 06:30 03/31/20 07:25 Troponin I Quantitative 0.052 ng/mL (0.000-0.055) Glucose (Fingerstick) 171 mg/dL (70-99) Laboratory Tests Test 03/30/20 13:10 03/30/20 21:40 03/30/20 23:28 03/31/20 03:30 White Blood Count 1.7 x10^3/uL (4.0-11.0) 1.5 x10^3/uL (4.0-11.0) Red Blood Count 4.89 x10^6/uL (3.50-5.40) 4.84 x10^6/uL (3.50-5.40) Hemoglobin 12.7 g/dL (12.0-15.5) 12.7 g/dL (12.0-15.5) Hematocrit 39.1 % (36.0-47.0) 38.7 % (36.0-47.0) Mean Corpuscular Volume 80 fL (79-100) 80 fL (79-100) Mean Corpuscular Hemoglobin 26 pg (25-35) 26 pg (25-35) Mean Corpuscular Hemoglobin Concent 33 g/dL (31-37) 33 g/dL (31-37) Red Cell Distribution Width 17.8 % (11.5-14.5) 17.5 % (11.5-14.5) Platelet Count 245 x10^3/uL (140-400) 234 x10^3/uL (140-400) Neutrophils (%) (Auto) 64 % (31-73) 63 % (31-73) Lymphocytes (%) (Auto) 24 % (24-48) 26 % (24-48) Monocytes (%) (Auto) 7 % (0-9) 6 % (0-9) Eosinophils (%) (Auto) 3 % (0-3) 4 % (0-3) Basophils (%) (Auto) 2 % (0-3) 1 % (0-3) Neutrophils # (Auto) 1.1 x10^3/uL (1.8-7.7) 1.0 x10^3/uL (1.8-7.7) Lymphocytes # (Auto) 0.4 x10^3/uL (1.0-4.8) 0.4 x10^3/uL (1.0-4.8) Monocytes # (Auto) 0.1 x10^3/uL (0.0-1.1) 0.1 x10^3/uL (0.0-1.1) Eosinophils # (Auto) 0.1 x10^3/uL (0.0-0.7) 0.1 x10^3/uL (0.0-0.7) Basophils # (Auto) 0.0 x10^3/uL (0.0-0.2) 0.0 x10^3/uL (0.0-0.2) Segmented Neutrophils % 60 % (35-66) Lymphocytes % 26 % (24-48) Monocytes % 8 % (0-10) Eosinophils % 4 % (0-5) Basophils % 2 % (0-3) Platelet Estimate Adequate (ADEQUATE) Anisocytosis Slight Microcytosis Slight Schistocytes Occ Prothrombin Time 13.9 SEC (11.7-14.0) Prothromb Time International Ratio 1.1 (0.8-1.1) Activated Partial Thromboplast Time 22 SEC (24-38) Fibrinogen 319 mg/dL (200-440) D-Dimer (Obdulia) 2.23 ug/mlFEU (0.00-0.50) Sodium Level 139 mmol/L (136-145) 138 mmol/L (136-145) Potassium Level 3.6 mmol/L (3.5-5.1) 3.5 mmol/L (3.5-5.1) Chloride Level 100 mmol/L (98-107) 100 mmol/L (98-107) Carbon Dioxide Level 30 mmol/L (21-32) 31 mmol/L (21-32) Anion Gap 9 (6-14) 7 (6-14) Blood Urea Nitrogen 13 mg/dL (7-20) 14 mg/dL (7-20) Creatinine 0.9 mg/dL (0.6-1.0) 0.7 mg/dL (0.6-1.0) Estimated GFR (Cockcroft-Gault) 77.0 102.9 BUN/Creatinine Ratio 14 (6-20) Glucose Level 272 mg/dL (70-99) 273 mg/dL (70-99) Lactic Acid Level 1.6 mmol/L (0.4-2.0) Calcium Level 8.8 mg/dL (8.5-10.1) 8.7 mg/dL (8.5-10.1) Magnesium Level 1.9 mg/dL (1.8-2.4) Total Bilirubin 0.6 mg/dL (0.2-1.0) Aspartate Amino Transf (AST/SGOT) 22 U/L (15-37) Alanine Aminotransferase (ALT/SGPT) 16 U/L (14-59) Alkaline Phosphatase 171 U/L (46-116) Troponin I Quantitative 0.067 ng/mL (0.000-0.055) 0.060 ng/mL (0.000-0.055) RT-Vle-U-Type Natriuretic Peptide 4281 pg/mL (0-124) Total Protein 7.8 g/dL (6.4-8.2) Albumin 3.3 g/dL (3.4-5.0) Albumin/Globulin Ratio 0.7 (1.0-1.7) Procalcitonin < 0.10 ng/mL (0.00-0.10) Glucose (Fingerstick) 269 mg/dL (70-99) 283 mg/dL (70-99) Test 03/31/20 06:30 03/31/20 07:25 Troponin I Quantitative 0.052 ng/mL (0.000-0.055) Glucose (Fingerstick) 171 mg/dL (70-99) Medications Current Medications Iohexol (Omnipaque 350 Mg/ml) 90 ml 1X ONCE IV ; Start 03/30/20 at 14:30; Stop 03/30/20 at 14:31; Status DC Info (CONTRAST GIVEN -- Rx MONITORING) 1 each PRN DAILY PRN MC SEE COMMENTS; Start 03/30/20 at 14:30; Stop 04/01/20 at 14:29 Ondansetron HCl (Zofran) 4 mg PRN Q8HRS PRN IV NAUSEA/VOMITING; Start 03/30/20 at 17:30; Stop 03/30/20 at 20:18; Status DC Insulin Human Lispro (HumaLOG) 0-7 UNITS TIDACHC SQ ; Start 03/30/20 at 21:00 Dextrose (Dextrose 50%-Water Syringe) 12.5 gm PRN Q15MIN PRN IV SEE COMMENTS; Start 03/30/20 at 17:45 Fluticasone Propionate (Flonase) 1 spray QHS NS ; Start 03/30/20 at 21:00 Lisinopril (Prinivil) 40 mg DAILY PO ; Start 03/31/20 at 09:00 Paroxetine HCl (Paxil) 20 mg DAILY PO ; Start 03/31/20 at 09:00; Status Cancel Insulin Glargine (Lantus Syringe) 40 unit QHS SQ Last administered on 03/30/20at 23:17; Start 03/30/20 at 21:00 Paroxetine HCl (Paxil) 40 mg DAILY PO ; Start 03/31/20 at 09:00 Ondansetron HCl (Zofran) 4 mg PRN Q4HRS PRN IV NAUSEA/VOMITING; Start 03/30/20 at 20:15 Enoxaparin Sodium (Lovenox 40mg Syringe) 40 mg Q12HR SQ ; Start 03/30/20 at 21:00 Psyllium Hydrophilic Mucilloid (Metamucil Fiber Packet) 1 pkt QHS PO Last administered on 03/30/20at 23:08; Start 03/30/20 at 21:00 Polyethylene Glycol (miraLAX PACKET) 17 gm QHS PO ; Start 03/30/20 at 21:00 Magnesium Citrate (Citroma) 296 ml PRN 1X PRN PO CONSTIPATION; Start 03/30/20 at 20:15 Zinc Sulfate (Orazinc) 220 mg DAILY PO Last administered on 03/30/20at 21:34; Start 03/30/20 at 20:15 Hydralazine HCl (Apresoline Inj) 10 mg PRN Q4HRS PRN IVP ELEVATED BP, SEE COMMENTS Last administered on 03/31/20at 01:04; Start 03/30/20 at 20:30 Furosemide (Lasix) 20 mg 1X ONCE IVP Last administered on 03/30/20at 23:09; Start 03/30/20 at 21:30; Stop 03/30/20 at 21:31; Status DC Potassium Chloride (Klor-Con) 40 meq 1X ONCE PO Last administered on 03/30/20at 23:08; Start 03/30/20 at 21:30; Stop 03/30/20 at 21:31; Status DC Lorazepam (Ativan) 1 mg PRN Q6HRS PRN PO ANXIETY / AGITATION; Start 03/30/20 at 21:30 Active Scripts Active Cephalexin 500 Mg Tablet 1,000 Mg PO BID 10 Days Bactrim Ds Tablet (Sulfamethoxazole/Trimethoprim) 1 Each Tablet 1 Tab PO BID 10 Days Zithromax (Azithromycin) 250 Mg Tablet 1 Pkg PO UD Reported Fluticasone Propionate Nasal [place] (Fluticasone Propionate) 16 Gm [place].susp 16 Gm LENA QHS 30 Days Lisinopril 40 Mg Tablet 40 Mg PO DAILY 30 Days Paroxetine Hcl 40 Mg Tablet 40 Mg PO DAILY 30 Days Lantus Solostar (Insulin Glargine,Hum.rec.anlog) 100 Unit/1 Ml Insuln.pen 40 Units SQ QHS 30 Days Humalog (Insulin Lispro) 100 Unit/1 Ml Insuln.pen Unknown Dose SQ Lisinopril 40 Mg Tablet 1 Tab PO DAILY Naproxen 500 Mg Tablet 500 Mg PO Paroxetine Hcl 20 Mg Tablet 20 Mg PO Vitals/I & O Vital Sign - Last 24 Hours 03/30/20 03/30/20 03/30/20 03/30/20 12:57 13:15 13:34 14:04 Temp 98.4 98.4 Pulse 111 107 106 109 Resp 16 B/P (MAP) 202/112 (142) 185/106 (132) 181/97 (125) 179/101 (127) Pulse Ox 96 96 100 95 O2 Delivery Room Air Room Air Room Air Room Air 03/30/20 03/30/20 03/30/20 03/30/20 14:34 15:17 15:47 16:17 Pulse 103 111 102 103 B/P (MAP) 185/108 (133) 202/108 (139) 186/108 (134) 177/106 (129) Pulse Ox 93 92 95 95 O2 Delivery Room Air Room Air Room Air Room Air 03/30/20 03/30/20 03/30/20 03/30/20 16:47 17:17 17:47 18:17 Pulse 107 114 104 101 Resp 20 19 20 B/P (MAP) 184/103 (130) 201/111 (141) 193/110 (137) 186/109 (134) Pulse Ox 97 91 90 O2 Delivery Room Air Room Air Room Air 03/30/20 03/30/20 03/30/20 03/30/20 18:48 19:18 19:48 20:18 Pulse 105 108 116 112 Resp 18 30 25 21 B/P (MAP) 187/104 (131) 188/112 (137) 199/115 (143) 178/89 (118) O2 Delivery Room Air Room Air Room Air Room Air 03/30/20 03/30/20 03/30/2016/20 20:48 21:18 22:00 22:00 Temp 99.1 99.1 Pulse 108 107 107 Resp 18 B/P (MAP) 162/81 (108) 160/83 (108) 176/89 (118) Pulse Ox 97 O2 Delivery Room Air Room Air Room Air 03/30/20 03/31/20 03/31/20 03/31/20 23:00 01:04 01:29 03:00 Temp 99.1 98.6 99.1 98.6 Pulse 108 101 108 101 Resp 18 18 B/P (MAP) 193/102 (132) 193/102 177/96 (123) 164/79 (107) Pulse Ox 93 97 O2 Delivery Room Air Intake and Output 03/30/20 03/30/20 03/31/20 15:00 23:00 07:00 Intake Total 600 ml Output Total 1375 ml Balance -775 ml UMM BLEDSOE MD March 31, 2020 08:16
[2020-03-31] MEDS: ENOXAPARIN 40 MG/0.4 ML SYRINGE. SQ SCH ×2 (09:00→21:53)
[2020-03-31] MEDS ORDERED: PARoxetine 20 MG TABLET PO SCH (09:00)
[2020-03-31] MEDS: ZINC SULFATE 220 MG CAPSULE. PO SCH (09:41)
[2020-03-31] MEDS: PARoxetine 20 MG TABLET PO SCH (09:42)
[2020-03-31] MEDS: LISINOPRIL 20 MG TABLET PO SCH (09:42)
[2020-03-31] MEDS ORDERED: IV NORMAL SALINE 1000ML BAG 1,000 ML IV ONE ×2 (10:30→11:45)
[2020-03-31] MEDS: METOPROLOL TARTRATE 5 MG/5 ML VIAL. IVP PRN ×2 (13:07→22:28)
--- NOTE | 2020-03-31 15:00 | NUR ---
IP: Pt is COVID negative.
--- NOTE | 2020-03-31 15:05 | EKG ---
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
[2020-03-31] MEDS ORDERED: ACETAMINOPHEN 325 MG TABLET. PO PRN (17:15)
--- NOTE | 2020-03-31 18:00 | NUR ---
Patient transferred to [address] [place] [address] around 1800 via wheelchair. COVID negative. Doctors approved transfer.
--- NOTE | 2020-03-31 20:09 | NUR ---
Assesment completed vss poc explained pt denied pain will resume care and continue to monitor pt. Call light in reach.
[2020-03-31] MEDS: PSYLLIUM HUSK (SUGAR FREE) 1 PKT PACKET PO SCH (21:48)
[2020-03-31] MEDS: FLUTICASONE 50MCG/NASAL SPRAY 16GM BOTTLE. NS SCH (21:48)
[2020-03-31] MEDS: POLYETHYLENE GLYCOL 3350 17 GM PACKET. PO SCH (21:49)
[2020-03-31] MEDS: INSULIN GLARGINE SYRINGE. SQ SCH (22:27)
[2020-04-01 02:56] VITALS: BP 139/87
--- NOTE | 2020-04-01 07:04 | EKG ---
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
[2020-04-01 07:16] VITALS: BP 166/88
[2020-04-01] MEDS: INSULIN LISPRO 300 UNITS/3 ML VIAL. SQ SCH ×4 (07:30→21:00)
[2020-04-01] MEDS: LISINOPRIL 20 MG TABLET PO SCH (09:05)
[2020-04-01] MEDS: ZINC SULFATE 220 MG CAPSULE. PO SCH (09:05)
[2020-04-01] MEDS: PARoxetine 20 MG TABLET PO SCH (09:06)
[2020-04-01] MEDS: ENOXAPARIN 40 MG/0.4 ML SYRINGE. SQ SCH (09:07)
--- NOTE | 2020-04-01 10:58 | PDOC2 ---
ALOK KAY [employer]ISH[employer] 04/01/20 1058: CARDIAC CONSULT DATE OF CONSULT Date of Consult DATE: 04/01/20 TIME: 10:51 REASON FOR CONSULT Reason for Consult: persistent sinus tachycardia REFERRING PHYSICIAN Referring Physician: Dr. Bhatia SOURCE Source: Chart review, Patient HISTORY OF PRESENT ILLNESS HISTORY OF PRESENT ILLNESS This is a 60 yo female who presented secondary to cough, epigastric pain, and shortness of breath for the last couple of days. COVID was negative. Has been sinus tachycardiac, which prompted this consult. Has a history of colorectal CA s/p colectomy 09/2019. Treated with chemotherapy as well. One of 12 total treatments remaining. Reports SOA has improved. No dizziness, diaphoresis, or nausea/vomiting. PAST MEDICAL HISTORY Cardiovascular: HTN Heme/Onc: Cancer (colorectal ) Endocrine: Diabetes PAST SURGICAL HISTORY Past Surgical History: Colectomy, Colon Resection FAMILY HISTORY Family History: Cancer (colorectal ), Diabetes, Hypertension SOCIAL HISTORY Smoke: Quit ALCOHOL: none Drugs: None CURRENT MEDICATIONS CURRENT MEDICATIONS Current Medications Medications (Trade) Dose Ordered Sig/Efrain Route PRN Reason Start Time Stop Time Status Last Admin Dose Admin Sodium Chloride 1,000 ml @ 125 mls/hr 1X ONCE IV 03/31/20 11:45 03/31/20 12:56 DC 03/31/20 12:18 Metoprolol Tartrate (Lopressor Vial) 5 mg PRN Q6HRS PRN IVP HYPERTENSION 03/31/20 12:30 03/31/20 22:28 Acetaminophen (Tylenol) 650 mg PRN Q6HRS PRN PO MILD PAIN 1-3 03/31/20 17:15 03/31/20 17:18 ALLERGIES ALLERGIES: Coded Allergies: No Known Drug Allergies (Unverified , 08/11/14) ROS Review of System 14 point ROS conducted with pertinent positives noted above in HPI PHYSICAL EXAM General: Alert, Oriented X3, Cooperative, No acute distress HEENT: Atraumatic, Mucous membr. moist/pink Lungs: Clear to auscultation, Other Heart: Regular rate (SR), Other (2/6 systolic murmur ) Abdomen: Soft, No tenderness Extremities: No edema, Normal pulses Skin: No breakdown, No significant lesion Neuro: Normal speech, Normal tone, Sensation intact Psych/Mental Status: Mental status NL, Mood NL MUSCULOSKELETAL: No deformity VITALS/I&O VITALS/I&O: Vital Signs Date Time Temp Pulse Resp B/P (MAP) Pulse Ox O2 Delivery O2 Flow Rate FiO2 04/01/20 09:05 90 166/88 04/01/20 07:16 98.6 18 97 Room Air 98.6 I & O 03/31/20 03/31/20 04/01/20 15:00 23:00 07:00 Intake Total 550 ml 540 ml 340 ml Output Total 250 ml Balance 300 ml 540 ml 340 ml LABS Lab: Laboratory Tests Test 03/31/20 11:41 03/31/20 16:48 03/31/20 21:47 04/01/20 07:26 Glucose (Fingerstick) 253 mg/dL (70-99) H 145 mg/dL (70-99) H 159 mg/dL (70-99) H 96 mg/dL (70-99) ASSESSMENT/PLAN ASSESSMENT/PLAN 1. Dyspnea with probable acute diastolic CHF 2. Chest, epigastric pain, atypical. 3. Accelerated hypertension; remains elevated 4. Mild troponin elevation; peak 0.06. Most probably type II, demand ischemia 5. Sinus tachycardia, most probably physiologic. Improved, now SR 6. Elevated d-dimer; CTA without PE 7. Diabetes, II 8. H/o colon CA s/p resection 09/2019 9. Leukopenia; current chemotherapy. on 09/26 treatments Recommendations Echo ordered Mild diuresis Replace K Continue lisinopril Monitor telemetry Consider outpatient ischemic evaluation Supportive care Further pending echo DILEEP MORALES MD 04/01/20 1609: CARDIAC CONSULT ASSESSMENT/PLAN ASSESSMENT/PLAN Patient seen and examined I agree with the nurse practitioners assessment and plan. Dyspnea. Improved. Continuing present medications. Check echocardiogram. Epigastric and lower chest pain. Troponin minimally elevated 0.06. No acute ischemic EKG changes. Will trend troponin. Accelerated hypertension. Mild diuresis. Continuing JOAQUÍN inhibitor is with gradually increasing dose as needed. Elevated d-dimer. CTA shows no PE. Sinus tachycardia. Improved. Probably physiologic. Continue treatment and work-up as above. Thank you for allowing us to participate in the care of your patient. ALOK KAY APRN April 01, 2020 10:58 DILEEP MORALES MD April 01, 2020 16:09
[2020-04-01 11:17] VITALS: BP 145/98
--- NOTE | 2020-04-01 11:34 | PDOC ---
[employer] PROGRESS NOTE Chief Complaint Chief Complaint Shortness of breath Constipation Chest pain Neutropenia Cardiomegaly Abnormal CT chest Anxiety Diabetes-Type II Hypertension Colon ca s/p resection 09/2019 History of Present Illness History of Present Illness 04/01/2020 Patient seen and examined Chart reviewed Discussed with RN Ms Alejandro is a 60yo F w/ PMHx Anxiety, Diabetes-Type II, Hypertension, colon ca s/p resection 09/2019 after abnormal colonoscopy with , and underwent resection with Dr. Ferreira at [facility], with subsequent port placement and has been under treatment presumably with FOLFOX with Dr. Rojas. Her last treatment was upcoming. Over the last week she has been experiencing some epigastric discomfort and intermittent constipation and some mild shortness of breath. She has associated nonproductive cough, chest pain on deep inspiration. She went to urgent care today had abnormal chest x-ray. She has had no fevers no recent sick contacts, though she does note every after her chemo treatments she does go to the grocery store and has been uncomfortable with a number of people who do not wear masks during the coronavirus pandemic. She herself does wear a mask and frequently washes her hands and face. Labs reveal neutropenia WBC 1.7 with ANC 1.1, Hb 12.7, Platelets 245, Albumin 3.3, Na 139, K 3.6, BUN 13, Cr 0.9, glucose 272, Troponin 0.067, BNP in 4000s, procalcitonin negative. INR 1.1, d dimer elevated. CT scan her chest did not show any pulmonary embolus however shows a diffuse groundglass appearance, MORE on the right side. Patient is suspected of COVID- 19 infection. Patient admitted to hospital for further treatment. WBC 1.5 today. ANC 1. Troponin decrased from 0.060 to 0.052. She feels better, but now is persistently tachycardic in the 140s. Shortness of breath and constipation improved. Not hypoxic. Plan: Bolus 1L NSS Will d/c pulmonology her abnormal CT findings and Cardiology as well. This was treated as pulmonary edema/chf on 03/30/20 but this does not seem to the full picture. Vitals/I&O Vitals/I&O: Vital Signs Date Time Temp Pulse Resp B/P (MAP) Pulse Ox O2 Delivery O2 Flow Rate FiO2 04/01/20 11:17 98.0 97 18 145/98 (114) 96 Room Air 98.0 I & O 03/31/20 03/31/20 04/01/20 15:00 23:00 07:00 Intake Total 550 ml 540 ml 340 ml Output Total 250 ml Balance 300 ml 540 ml 340 ml Physical Exam General: Alert, Oriented X3, Cooperative, No acute distress Heart: Regular rate, Normal S1, Normal S2 Lungs: Crackles Abdomen: Normal bowel sounds, Soft, No tenderness, No hepatosplenomegaly, No masses Extremities: No clubbing, No cyanosis, No edema, Normal pulses, No tenderness/swelling Skin: No rashes, No breakdown, No significant lesion Labs Labs: Laboratory Tests Test 03/31/20 11:41 03/31/20 16:48 03/31/20 21:47 04/01/20 07:26 Glucose (Fingerstick) 253 mg/dL (70-99) 145 mg/dL (70-99) 159 mg/dL (70-99) 96 mg/dL (70-99) Review of Systems Review of Systems: Complains of some epigastric discomfort Assessment and Plan Assessmemt and Plan Problems Medical Problems: (1) Dyspnea Status: Acute (2) Neutropenia Status: Acute (3) Suspected COVID-19 virus infection Status: Acute Shortness of breath - with groundglass infiltrates bilaterally during SARS-CoV-2 pandemic and high risk patient she has been tested. With cardiomegaly and elevated BNP will diurese as well. Constipation - will start on bowel regimen. Chest pain - likely CHF, newly diagnosed, will r/o COVID as above, trend troponins Neutropenia - ANC 1.1, no fevers, no elevation in procalcitonin. No clear indication for antibiotics at this time. Will monitor closely Cardiomegaly - noted on CT and with elevated BNP will diurese, may have a component of undiagnosed CHF, will treat as such Abnormal CT chest - will have pulmonary medicine consulted for spiculated nodule and inform her oncologist of abnormal finding to ensure on outpatient PET this is not metastatic disease. Anxiety - low dose ativan prn. Cont paxil Diabetes-Type II - hold metformin given contrast administration, will place on sliding scale inpatient Hypertension - cont meds Colon ca s/p resection 09/2019 - her course has been appropriate. Will monitor Continue to diurese Cardiac monitoring Appreciate cardiology input Home meds DVT prophylaxis Full code Discharge when okay with Comment Review of Relevant I have reviewed the following items primitivo (where applicable) has been applied. Medications: Current Medications Medications (Trade) Dose Ordered Sig/Efrain Route PRN Reason Start Time Stop Time Status Last Admin Dose Admin Sodium Chloride 1,000 ml @ 125 mls/hr 1X ONCE IV 03/31/20 11:45 03/31/20 12:56 DC 03/31/20 12:18 Metoprolol Tartrate (Lopressor Vial) 5 mg PRN Q6HRS PRN IVP HYPERTENSION 03/31/20 12:30 03/31/20 22:28 Acetaminophen (Tylenol) 650 mg PRN Q6HRS PRN PO MILD PAIN 1-3 03/31/20 17:15 03/31/20 17:18 JOSSELINE LOPEZ III DO April 01, 2020 11:34
--- NOTE | 2020-04-01 11:35 | NUR ---
SS following for discharge planning. SS reviewed pt chart and discussed with pt RN. Pt is from home and is currently on room air. Pt had ECHO today. Pt COVID19 negative. SS will continue to follow for discharge planning.
--- NOTE | 2020-04-01 11:51 | CARD ---
MR#: [id number] Date of Study: 04/01/2020 Ordering Physician: UMM BLEDSOE, Referring Physician: UMM BLEDSOE, Tech: Lisa Cox [facility] APPROVED REPORT EXAM: Two-dimensional and M-mode echocardiogram with Doppler and color Doppler. Other Information Quality : Good INDICATION R/O CHF/Cardiomegaly 2D DIMENSIONS RVDd2.7 (2.9-3.5cm)Left Atrium(2D)4.1 (1.6-4.0cm) IVSd1.4 (0.7-1.1cm)Aortic Root(2D)2.4 (2.0-3.7cm) LVDd4.9 (3.9-5.9cm)LVOT Diameter1.9 (1.8-2.4cm) PWd1.4 (0.7-1.1cm)LVDs4.2 (2.5-4.0cm) FS (%) 14.4 %SV33.9 ml M-Mode DIMENSIONS LVDd5.44 (4.0-5.6cm)MV EPSS1.4 (<0.5cm) FS (%) 16 %LVDs4.59 (2.0-3.8cm) ESV(Teich)96.6 mlLVEF(%)33 (>50%) Aortic Valve AoV Peak [place].140.1cm/sAoV VTI20.2cm AO Peak GR.7.8mmHgLVOT Peak [place].106.3cm/s AO Mean GR.5mmHgAVA (VMAX)2.22cm2 AMALIA (VTI)2.09vu1HQ P 1/2 [id number] Mitral Valve MV E Ndewnjkt517.3cm/sMV DECEL QFNL570tz MV A Okgtsnih38.2cm/sE/A Ratio1.7 Tricuspid Valve TR P. Wfeaqpwz793cp/sRAP WRMGQWMC0knWl TR Peak Gr.11qvNhFBMB27dbLw Pulmonary Vein S1 Mclsgfir36.8cm/sD2 Oousnsmz67.8cm/s LEFT VENTRICLE The Left Ventricle is mildly dilated. There is mild concentric left ventricular hypertrophy. Left vale tricle systolic function is severely impaired. The Ejection Fraction is 25-30%. There is global hypok inesis of the left ventricle. Transmitral Doppler flow pattern is Grade II-pseudonormal filling dynam ics. RIGHT VENTRICLE The right ventricle is normal size. The right ventricular systolic function is normal. ATRIA The left atrium is mildly dilated. The right atrium size is normal. The interatrial septum is intact with no evidence for an atrial septal defect or patent foramen ovale as noted on 2-D or Doppler imagi ng. AORTIC VALVE The aortic valve is calcified but opens well. Doppler and Color Flow revealed trace aortic regurgitat ion. There is no significant aortic valvular stenosis. MITRAL VALVE The mitral valve is calcified but opens well. Mitral annular calcification is mild. There is no evide nce of mitral valve prolapse. There is no mitral valve stenosis. Doppler and Color-flow revealed mild to moderate mitral regurgitation. TRICUSPID VALVE The tricuspid valve is normal in structure and function. Doppler and Color Flow revealed mild tricusp id regurgitation. The PA pressure was estimated at 46 mmHg. There is no tricuspid valve stenosis. PULMONIC VALVE The pulmonary valve is normal in structure and function. Doppler and Color Flow revealed mild to mode rate pulmonic valvular regurgitation. There is no pulmonic valvular stenosis. GREAT VESSELS The aortic root is normal in size. The ascending aorta is normal in size. The IVC is normal in size a nd collapses >50% with inspiration. PERICARDIAL EFFUSION There is no evidence of significant pericardial effusion. Critical Notification Critical Value: No <Conclusion> The Left Ventricle is mildly dilated. Left ventricle systolic function is severely impaired. The Ejection Fraction is 25-30%. There is global hypokinesis of the left ventricle. There is mild concentric left ventricular hypertrophy. Doppler and Color Flow revealed trace aortic regurgitation. There is no significant aortic valvular stenosis. Doppler and Color-flow revealed mild to moderate mitral regurgitation. Doppler and Color Flow revealed mild tricuspid regurgitation. The PA pressure was estimated at 46 mmHg. Signed by : Alen Clements MD Electronically Approved : 04/01/2020 11:50:59
[2020-04-01 12:03] LABS: CHOLESTEROL/HDL RATIO 3.3
--- NOTE | 2020-04-01 13:51 | PDOC ---
PULMONARY PROGRESS NOTES Vitals Vital Signs Date Time Temp Pulse Resp B/P (MAP) Pulse Ox O2 Delivery O2 Flow Rate FiO2 04/01/20 11:17 98.0 97 18 145/98 (114) 96 Room Air 98.0 Lungs: Crackles Labs Laboratory Tests Test 03/30/20 21:40 03/30/20 23:28 03/31/20 03:30 03/31/20 06:30 Glucose (Fingerstick) 269 mg/dL (70-99) 283 mg/dL (70-99) White Blood Count 1.5 x10^3/uL (4.0-11.0) Red Blood Count 4.84 x10^6/uL (3.50-5.40) Hemoglobin 12.7 g/dL (12.0-15.5) Hematocrit 38.7 % (36.0-47.0) Mean Corpuscular Volume 80 fL (79-100) Mean Corpuscular Hemoglobin 26 pg (25-35) Mean Corpuscular Hemoglobin Concent 33 g/dL (31-37) Red Cell Distribution Width 17.5 % (11.5-14.5) Platelet Count 234 x10^3/uL (140-400) Neutrophils (%) (Auto) 63 % (31-73) Lymphocytes (%) (Auto) 26 % (24-48) Monocytes (%) (Auto) 6 % (0-9) Eosinophils (%) (Auto) 4 % (0-3) Basophils (%) (Auto) 1 % (0-3) Neutrophils # (Auto) 1.0 x10^3/uL (1.8-7.7) Lymphocytes # (Auto) 0.4 x10^3/uL (1.0-4.8) Monocytes # (Auto) 0.1 x10^3/uL (0.0-1.1) Eosinophils # (Auto) 0.1 x10^3/uL (0.0-0.7) Basophils # (Auto) 0.0 x10^3/uL (0.0-0.2) Sodium Level 138 mmol/L (136-145) Potassium Level 3.5 mmol/L (3.5-5.1) Chloride Level 100 mmol/L (98-107) Carbon Dioxide Level 31 mmol/L (21-32) Anion Gap 7 (6-14) Blood Urea Nitrogen 14 mg/dL (7-20) Creatinine 0.7 mg/dL (0.6-1.0) Estimated GFR (Cockcroft-Gault) 102.9 Glucose Level 273 mg/dL (70-99) Calcium Level 8.7 mg/dL (8.5-10.1) Troponin I Quantitative 0.060 ng/mL (0.000-0.055) 0.052 ng/mL (0.000-0.055) Triglycerides Level 128 mg/dL (0-150) Cholesterol Level 186 mg/dL (0-200) LDL Cholesterol, Calculated 104 mg/dL (0-100) VLDL Cholesterol, Calculated 26 mg/dL (0-40) Non-HDL Cholesterol Calculated 130 mg/dL (0-129) HDL Cholesterol 56 mg/dL (40-60) Cholesterol/HDL Ratio 3.3 Thyroid Stimulating Hormone (TSH) 0.942 uIU/mL (0.358-3.74) Test 03/31/20 07:25 03/31/20 11:41 03/31/20 16:48 03/31/20 21:47 Glucose (Fingerstick) 171 mg/dL (70-99) 253 mg/dL (70-99) 145 mg/dL (70-99) 159 mg/dL (70-99) Test 04/01/20 07:26 04/01/20 11:33 Glucose (Fingerstick) 96 mg/dL (70-99) 155 mg/dL (70-99) Laboratory Tests Test 03/31/20 16:48 03/31/20 21:47 04/01/20 07:26 04/01/20 11:33 Glucose (Fingerstick) 145 mg/dL (70-99) 159 mg/dL (70-99) 96 mg/dL (70-99) 155 mg/dL (70-99) Medications Active Scripts Medications Dose Route/Sig Max Daily Dose Days Date Category Fluticasone Propionate Nasal [place] (Fluticasone Propionate) 16 Gm [place].susp 16 Gm LENA QHS 30 03/30/20 Reported Lisinopril 40 Mg Tablet 40 Mg PO DAILY 30 03/30/20 Reported Paroxetine Hcl 40 Mg Tablet 40 Mg PO DAILY 30 03/30/20 Reported Lantus Solostar (Insulin Glargine,Hum.rec.anlog) 100 Unit/1 Ml Insuln.pen 40 Units SQ QHS 30 03/30/20 Reported Cephalexin 500 Mg Tablet 1,000 Mg PO BID 10 04/23/18 Rx Bactrim Ds Tablet (Sulfamethoxazole/Trimethoprim) 1 Each Tablet 1 Tab PO BID 10 04/23/18 Rx Zithromax (Azithromycin) 250 Mg Tablet 1 Pkg PO UD 10/18/16 Rx Humalog (Insulin Lispro) 100 Unit/1 Ml Insuln.pen Unknown Dose SQ 10/18/16 Reported Lisinopril 40 Mg Tablet 1 Tab PO DAILY 10/18/16 Reported Naproxen 500 Mg Tablet 500 Mg PO 12/18/13 Reported Paroxetine Hcl 20 Mg Tablet 20 Mg PO 12/18/13 Reported Impression . Full note dictated, suspect mostly CHF, will defer to cardiology. Cardiomyopathy may be related to chemotherapy. No need for antibiotics. No evidence of PE on CT chest. SHARRON PADRON MD April 01, 2020 13:51
[2020-04-01 14:26] VITALS: BP 144/81
[2020-04-01] MEDS ORDERED: POTASSIUM CHLORIDE 20 MEQ TABLET.ER. PO ONE (15:15)
[2020-04-01] MEDS ORDERED: FUROSEMIDE 20 MG/2 ML VIAL. IVP ONE (15:15)
--- NOTE | 2020-04-01 15:44 | CONS ---
DATE OF CONSULTATION: 04/01/2020 REFERRING PHYSICIAN: Dr. Bhatia. REASON FOR CONSULTATION: The patient is seen in pulmonary consultation at the request of Dr. Lama for increasing shortness of air, abnormal CT chest. HISTORY OF PRESENT ILLNESS: The patient is a 60-year-old female undergoing chemotherapy for colon cancer. She has a prior history of type 2 diabetes, hypertension, anxiety, status post colon resection in 10/13 after abnormal colonoscopy, underwent resection. She then had a Port-A-Cath placement. She has been treated by Dr. Rojas with FOLFOX. She had last treatment approximately a week ago. Over the last 7 days, she has had increasing shortness of breath, some epigastric fullness and discomfort, constipation. No fever, chills or night sweats, cough is mostly nonproductive. [facility], had an abnormal x-ray. She was subsequently asked to follow up at [place]. She was admitted. She had a CT angiogram for PE protocol on the . I reviewed it. There was no evidence of pulmonary emboli. There was bilateral pleural effusions, right greater than left. There was bilateral ground glass opacities, mainly on the right side. She also had some areas of consolidation. There was also a previous calcified lymphadenopathy. The patient since admission has undergone an echocardiogram. I reviewed it. Echocardiogram report indicates EF of 25-30%. She also had pulmonary artery pressure of 46. I was asked to see him in consultation. Once again, she denies fever, chills or night sweats. PAST MEDICAL HISTORY: 1. Colon cancer, status post resection, now undergoing chemotherapy with FOLFOX. 2. Hypertension. 3. Diabetes. 4. Anxiety disorder. The patient denies any previous history of coronary artery disease, myocardial infarction. She denies any history of angina type of discomfort. PAST SURGICAL HISTORY: Status post resection as indicated above. ALLERGIES: No known drug allergies. REVIEW OF SYSTEMS: As indicated above, otherwise, a 10-point system was reviewed and negative. FAMILY HISTORY: Remarkable for both brothers having congestive heart failure. SOCIAL HISTORY: Denies any alcohol intake. She used to smoke, quit. PHYSICAL EXAMINATION: VITAL SIGNS: The patient was on room air, saturation 96%. HEENT: Eyes, the sclerae were nonicteric. NECK: Jugular venous distention was not elevated. No lymphadenopathy. CHEST: Full expansion. LUNGS: Diminished breath sounds in the bases. No wheezes. CARDIOVASCULAR: Regular rate and rhythm with S1, S2, no S3. ABDOMEN: Soft, nontender, nondistended. EXTREMITIES: No clubbing, cyanosis or edema. LABORATORY DATA: White count was low at 1.5, hemoglobin and hematocrit were noted. INR was 1.1. D-dimer was 2.23. Electrolytes were noted. Blood sugars were elevated. Troponin was elevated. Albumin was low. Procalcitonin was not elevated. BNP was elevated. IMPRESSION: 1. Progressive dyspnea secondary to acute pulmonary edema. 2. Cardiomyopathy, possibly related to chemotherapy. 3. Colon cancer, status post resection, currently undergoing chemotherapy with FOLFOX. 4. Leukopenia. 5. Anxiety disorder. 6. Type 2 diabetes. 7. Elevated troponin. 8. Abnormal CT chest revealing bilateral effusions and infiltrates. DISCUSSION: Reviewing the patient's current CT chest and clinical presentation, I suspect most of her symptoms are related to acute pulmonary edema. Doubt that this is infectious in etiology. Ground glass opacities are related to CHF. Her SARS-COVID2 was negative x 1. The patient continues to experience no fever. No increasing cough. She has been seen by Cardiology, we will defer any further diagnostic testing to Cardiology. For now, we will diurese. No need for antibiotics. Recommend consulting Dr. Rojas and the possibility of changing her chemotherapeutic agents. There was no evidence of PE on CT chest. Continue DVT prophylaxis. The patient is seen during the past COVID-19 pandemic. SHARRON PADRON MD DR: MAEGAN/marya JOB#: [id number] / [id number]
--- NOTE | 2020-04-01 19:40 | NUR ---
Pt in bed assessment completed vss poc explained will resume care and continue to monitor pt. Call light in reach.
[2020-04-01 19:48] VITALS: BP 143/90
[2020-04-01] MEDS: PSYLLIUM HUSK (SUGAR FREE) 1 PKT PACKET PO SCH (21:00)
[2020-04-01] MEDS: FLUTICASONE 50MCG/NASAL SPRAY 16GM BOTTLE. NS SCH (21:00)
[2020-04-01] MEDS: POLYETHYLENE GLYCOL 3350 17 GM PACKET. PO SCH (21:00)
[2020-04-01] MEDS: INSULIN GLARGINE SYRINGE. SQ SCH (21:09)
--- NOTE | 2020-04-01 21:16 | NUR ---
Pt glucose 251 at [facility] pt refused SSI will monitor pt.
[2020-04-01 22:38] VITALS: BP 150/92
[2020-04-02 03:00] VITALS: BP 132/79
[2020-04-02 07:00] VITALS: BP 133/96
[2020-04-02] MEDS: INSULIN LISPRO 300 UNITS/3 ML VIAL. SQ SCH ×4 (07:30→21:00)
[2020-04-02] MEDS: ASPIRIN ENTERIC COATED 81 MG TABLET.DR. PO SCH (08:00)
--- NOTE | 2020-04-02 08:23 | PDOC ---
PULMONARY PROGRESS NOTES Subjective Patient feels better today less short of air. Vitals Vital Signs Date Time Temp Pulse Resp B/P (MAP) Pulse Ox O2 Delivery O2 Flow Rate FiO2 04/02/20 07:00 98.1 95 18 133/96 (108) 94 Room Air 98.1 ROS: No Nausea, No Chest Pain, No Abdominal Pain, No Increase Cough General: Alert Lungs: Clear Cardiovascular: S1, S2 Abdomen: Soft Neuro Exam: Alert Extremities: No Edema Skin: Warm Labs Laboratory Tests Test 03/31/20 11:41 03/31/20 16:48 03/31/20 21:47 04/01/20 07:26 Glucose (Fingerstick) 253 mg/dL (70-99) 145 mg/dL (70-99) 159 mg/dL (70-99) 96 mg/dL (70-99) Test 04/01/20 11:33 04/01/20 16:32 04/01/20 21:04 04/02/20 02:08 Glucose (Fingerstick) 155 mg/dL (70-99) 206 mg/dL (70-99) 251 mg/dL (70-99) 76 mg/dL (70-99) Test 04/02/20 03:01 04/02/20 07:13 04/02/20 07:46 Glucose (Fingerstick) 140 mg/dL (70-99) 79 mg/dL (70-99) 78 mg/dL (70-99) Laboratory Tests Test 04/01/20 11:33 04/01/20 16:32 04/01/20 21:04 04/02/20 02:08 Glucose (Fingerstick) 155 mg/dL (70-99) 206 mg/dL (70-99) 251 mg/dL (70-99) 76 mg/dL (70-99) Test 04/02/20 03:01 04/02/20 07:13 04/02/20 07:46 Glucose (Fingerstick) 140 mg/dL (70-99) 79 mg/dL (70-99) 78 mg/dL (70-99) Medications Active Scripts Medications Dose Route/Sig Max Daily Dose Days Date Category Fluticasone Propionate Nasal [place] (Fluticasone Propionate) 16 Gm [place].susp 16 Gm LENA QHS 30 03/30/20 Reported Lisinopril 40 Mg Tablet 40 Mg PO DAILY 30 03/30/20 Reported Paroxetine Hcl 40 Mg Tablet 40 Mg PO DAILY 30 03/30/20 Reported Lantus Solostar (Insulin Glargine,Hum.rec.anlog) 100 Unit/1 Ml Insuln.pen 40 Units SQ QHS 30 03/30/20 Reported Cephalexin 500 Mg Tablet 1,000 Mg PO BID 10 04/23/18 Rx Bactrim Ds Tablet (Sulfamethoxazole/Trimethoprim) 1 Each Tablet 1 Tab PO BID 10 04/23/18 Rx Zithromax (Azithromycin) 250 Mg Tablet 1 Pkg PO UD 10/18/16 Rx Humalog (Insulin Lispro) 100 Unit/1 Ml Insuln.pen Unknown Dose SQ 10/18/16 Reported Lisinopril 40 Mg Tablet 1 Tab PO DAILY 10/18/16 Reported Naproxen 500 Mg Tablet 500 Mg PO 12/18/13 Reported Paroxetine Hcl 20 Mg Tablet 20 Mg PO 12/18/13 Reported Impression . IMPRESSION: 1. Progressive dyspnea secondary to acute pulmonary edema. 2. Cardiomyopathy, possibly related to chemotherapy. 3. Colon cancer, status post resection, currently undergoing chemotherapy with FOLFOX. 4. Leukopenia. 5. Anxiety disorder. 6. Type 2 diabetes. 7. Elevated troponin. 8. Abnormal CT chest revealing bilateral effusions and infiltrates. 9. SARS-CoV-2 negative Plan . Continue diuresis Possible cardiac catheterization, discussed with Dr. Trinh, and Dr. Fontana No need for antibiotics SHARRON PADRON MD April 02, 2020 08:23
[2020-04-02] MEDS: ZINC SULFATE 220 MG CAPSULE. PO SCH (08:40)
[2020-04-02] MEDS: PARoxetine 20 MG TABLET PO SCH (08:41)
[2020-04-02] MEDS: LISINOPRIL 20 MG TABLET PO SCH (08:42)
[2020-04-02] MEDS: ENOXAPARIN 40 MG/0.4 ML SYRINGE. SQ SCH (08:43)
[2020-04-02] MEDS ORDERED: METOPROLOL SUCC 24HR ER 25 MG TAB.ER.24H. PO SCH (09:00)
[2020-04-02] MEDS ORDERED: LISINOPRIL 5 MG TABLET. PO SCH (09:00)
--- NOTE | 2020-04-02 09:38 | PDOC ---
PROGRESS NOTES Chief Complaint Chief Complaint impression===== Shortness of breath prominent groundglass infiltrate of the right upper lobe with some interspersed smaller areas of consolidation. There is also some consolidation of the lingula with air bronchograms and also of the right middle lobe with severe bronchograms Constipation Chest pain Neutropenia , MODERATE ON NEUTROPENIC DIET Cardiomegaly Left ventricle systolic function is severely impaired. on echo, Ejection Fraction is 25-30%.global hypokinesis of the left ventricle.mild to moderate mitral regurgitation. PA pressure was estimated at 46 mmHg. c/w moderate pulm HTN Abnormal CT chest right greater than left pleural effusions. Heart is enlarged.//Component of heart failure . Anxiety Diabetes-Type II Hypertension Colon ca s/p resection 09/2019 PLAN CVC BED CONT DIURESIS, LASIX 40MG IV DAILY History of Present Illness History of Present Illness 04/02/2020 Patient seen and examined Chart reviewed Discussed with RN URINE OUTPUT LOW, WILL DOSE DAILY IV LASIX Ms Alejandro is a 60yo F w/ PMHx Anxiety, Diabetes-Type II, Hypertension, colon ca s/p resection 09/2019 after abnormal colonoscopy with , and underwent resection with Dr. Ferreira at [facility], with subsequent port placement and has been under treatment presumably with FOLFOX with Dr. Rojsa. Her last treatment was upcoming. Over the last week she has been experiencing some epigastric discomfort and intermittent constipation and some mild shortness of breath. She has associated nonproductive cough, chest pain on deep inspiration. She went to urgent care had abnormal chest x-ray. She has had no fevers no recent sick contacts, though she does note every after her chemo treatments she does go to the grocery store and has been uncomfortable with a number of people who do not wear masks during the coronavirus pandemic. She herself does wear a mask and frequently washes her hands and face. Labs reveal neutropenia WBC 1.7 with ANC 1.1, Hb 12.7, Platelets 245, Albumin 3.3, Na 139, K 3.6, BUN 13, Cr 0.9, glucose 272, Troponin 0.067, BNP in 4000s, procalcitonin negative. INR 1.1, d dimer elevated. CT scan her chest did not show any pulmonary embolus however shows a diffuse groundglass appearance, MORE on the right side. Patient is suspected of COVID- 19 infection. Patient admitted to hospital for further treatment. Troponin decrased from 0.060 to 0.052. She feels better, but now is persist ently tachycardic in the 140s. Shortness of breath and constipation improved. Not hypoxic. Plan: Bolus 1L NSS Will d/w pulmonology her abnormal CT findings and Cardiology as well. This was treated as pulmonary edema/chf on 03/30/20 but this does not seem to the full picture. Vitals Vitals Vital Signs Date Time Temp Pulse Resp B/P (MAP) Pulse Ox O2 Delivery O2 Flow Rate FiO2 04/02/20 08:42 95 133/96 04/02/20 07:00 98.1 18 94 Room Air 98.1 Physical Exam General: Alert, Oriented X3, Cooperative, No acute distress Heart: Regular rate (SR), Other (2/6 systolic murmur ) Lungs: Crackles Abdomen: Normal bowel sounds, Soft, No tenderness Extremities: No edema, Normal pulses Skin: No breakdown, No significant lesion Labs LABS Aortic Valve AoV Peak [place]. 140.1cm/s AoV VTI 20.2cm AO Peak GR. 7.8mmHg LVOT Peak [place]. 106.3cm/s AO Mean GR. 5mmHg AMALIA (VMAX) 2.22cm2 AMALIA (VTI) 2.30cm2 AI P 1/2 Time 1100ms Mitral Valve MV E Velocity 134.3cm/s MV DECEL TIME 129ms MV A Velocity 77.2cm/s E/A Ratio 1.7 Tricuspid Valve TR P. Velocity 328cm/s RAP ESTIMATE 3mmHg TR Peak Gr. 43mmHg RVSP 46mmHg Pulmonary Vein S1 Velocity 34.8cm/s D2 Velocity 68.8cm/s LEFT VENTRICLE The Left Ventricle is mildly dilated. There is mild concentric left ventricular hypertrophy. Left ventricle systolic function is severely impaired. The Ejection Fraction is 25-30%. There is global hypokinesis of the left ventricle. Transmitral Doppler flow pattern is Grade II-pseudonormal filling dynamics. RIGHT VENTRICLE The right ventricle is normal size. The right ventricular systolic function is normal. ATRIA The left atrium is mildly dilated. The right atrium size is normal. The interatrial septum is intact with no evidence for an atrial septal defect or patent foramen ovale as noted on 2-D or Doppler imaging. AORTIC VALVE The aortic valve is calcified but opens well. Doppler and Color Flow revealed trace aortic regurgitation. There is no significant aortic valvular stenosis. MITRAL VALVE The mitral valve is calcified but opens well. Mitral annular calcification is mild. There is no evidence of mitral valve prolapse. There is no mitral valve stenosis. Doppler and Color-flow revealed mild to moderate mitral regurgitation. TRICUSPID VALVE The tricuspid valve is normal in structure and function. Doppler and Color Flow revealed mild tricuspid regurgitation. The PA pressure was estimated at 46 mmHg. There is no tricuspid valve stenosis. PULMONIC VALVE The pulmonary valve is normal in structure and function. Doppler and Color Flow revealed mild to moderate pulmonic valvular regurgitation. There is no pulmonic valvular stenosis. GREAT VESSELS The aortic root is normal in size. The ascending aorta is normal in size. The IVC is normal in size and collapses >50% with inspiration. PERICARDIAL EFFUSION There is no evidence of significant pericardial effusion. Critical Notification Critical Value: No <Conclusion> The Left Ventricle is mildly dilated. Left ventricle systolic function is severely impaired. The Ejection Fraction is 25-30%. There is global hypokinesis of the left ventricle. There is mild concentric left ventricular hypertrophy. Doppler and Color Flow revealed trace aortic regurgitation. There is no significant aortic valvular stenosis. Doppler and Color-flow revealed mild to moderate mitral regurgitation. Doppler and Color Flow revealed mild tricuspid regurgitation. The PA pressure was estimated at 46 mmHg. Signed by : Dileep Clements MD Electronically Approved : 04/01/2020 11:50:59 DICTATED and SIGNED BY: DILEEP CLEMENTS MD DATE: 04/01/20 1106 Chest CTA History: Chest pain, shortness of air, colon cancer Technique: After bolus of intravenous contrast, CT imaging was performed of the chest. Multiplanar reconstruction images to include MIP reconstruction images are submitted. Exposure: One or more of the following individualized dose reduction techniques were utilized for this examination: 1. Automated exposure control 2. Adjustment of the mA and/or kV according to patient size 3. Use of iterative reconstruction technique. Comparison: None Findings: No pulmonary embolism is identified. There is [id number] dependent right pleural effusion. There is also small left pleural effusion, greater degree of subpulmonic component. There is prominent groundglass infiltrate of the right upper lobe with some interspersed smaller areas of consolidation. There is also some consolidation of the lingula with air bronchograms and also of the right middle lobe with severe bronchograms, difficult to exclude underlying nodularity in this region on this exam. There is somewhat spiculated right lower lobe pulmonary nodule about 1.1 cm image 101 series 3, also likely focus of nodularity of the right lower lobe about 0.8 cm image 104. There is groundglass nodule posteriorly in the right upper lobe about 0.9 cm image 62. There is noncalcified left lower lobe nodule about 0.9 cm image 89 series 3 with somewhat indistinct margins. There is some compressive atelectasis of the left lower lobe near the effusion. Heart is enlarged. There are some calcified bilateral hilar and mediastinal nodes, also some other small noncalcified nodes present. Thoracic aortic caliber is within normal limits, no intraluminal flap. Impression: 1. No pulmonary embolism is identified. 2. There are right greater than left pleural effusions. Heart is enlarged. Component of heart failure is a consideration. 3. There are areas of infiltrate bilaterally as stated, large area of groundglass density of the right upper lobe with some interspersed mild consolidation and areas of consolidation with air bronchograms most notable of the lingula and right middle lobe. There are also separate more defined pulmonary nodules as stated, largest of the right lower lobe with spiculated margin, metastases in the differential possibilities. Short-term follow-up within 1-2 months or PET/CT should be considered. 4. There are some calcified nodes bilaterally as may be sequela of granulomatous disease. Electronically signed by: Amaury Ho MD (03/30/2020 3:22 PM) [id number] Laboratory Tests Test 04/01/20 11:33 04/01/20 16:32 04/01/20 21:04 04/02/20 02:08 Glucose (Fingerstick) 155 mg/dL (70-99) 206 mg/dL (70-99) 251 mg/dL (70-99) 76 mg/dL (70-99) Test 04/02/20 03:01 04/02/20 07:13 04/02/20 07:46 Glucose (Fingerstick) 140 mg/dL (70-99) 79 mg/dL (70-99) 78 mg/dL (70-99) Assessment and Plan Assessmemt and Plan Problems Medical Problems: (1) Dyspnea Status: Acute (2) Neutropenia Status: Acute (3) Suspected COVID-19 virus infection Status: Acute Comment Review of Relevant I have reviewed the following items primitivo (where applicable) has been applied. Labs Laboratory Tests Test 03/31/20 11:41 03/31/20 16:48 03/31/20 21:47 04/01/20 07:26 Glucose (Fingerstick) 253 mg/dL (70-99) 145 mg/dL (70-99) 159 mg/dL (70-99) 96 mg/dL (70-99) Test 04/01/20 11:33 04/01/20 16:32 04/01/20 21:04 04/02/20 02:08 Glucose (Fingerstick) 155 mg/dL (70-99) 206 mg/dL (70-99) 251 mg/dL (70-99) 76 mg/dL (70-99) Test 04/02/20 03:01 04/02/20 07:13 04/02/20 07:46 Glucose (Fingerstick) 140 mg/dL (70-99) 79 mg/dL (70-99) 78 mg/dL (70-99) Laboratory Tests Test 04/01/20 11:33 04/01/20 16:32 04/01/20 21:04 04/02/20 02:08 Glucose (Fingerstick) 155 mg/dL (70-99) 206 mg/dL (70-99) 251 mg/dL (70-99) 76 mg/dL (70-99) Test 04/02/20 03:01 04/02/20 07:13 04/02/20 07:46 Glucose (Fingerstick) 140 mg/dL (70-99) 79 mg/dL (70-99) 78 mg/dL (70-99) Microbiology 03/30/20 Blood Culture - Preliminary, Resulted NO GROWTH AFTER 2 DAYS Medications Current Medications Iohexol (Omnipaque 350 Mg/ml) 90 ml 1X ONCE IV ; Start 03/30/20 at 14:30; Stop 03/30/20 at 14:31; Status DC Info (CONTRAST GIVEN -- Rx MONITORING) 1 each PRN DAILY PRN MC SEE COMMENTS; Start 03/30/20 at 14:30; Stop 04/01/20 at 14:29; Status DC Ondansetron HCl (Zofran) 4 mg PRN Q8HRS PRN IV NAUSEA/VOMITING; Start 03/30/20 at 17:30; Stop 03/30/20 at 20:18; Status DC Insulin Human Lispro (HumaLOG) 0-7 UNITS TIDACHC SQ Last administered on 03/31/20at 12:19; Start 03/30/20 at 21:00 Dextrose (Dextrose 50%-Water Syringe) 12.5 gm PRN Q15MIN PRN IV SEE COMMENTS; Start 03/30/20 at 17:45 Fluticasone Propionate (Flonase) 1 spray QHS NS ; Start 03/30/20 at 21:00 Lisinopril (Prinivil) 40 mg DAILY PO Last administered on 04/02/20at 08:42; Start 03/31/20 at 09:00 Paroxetine HCl (Paxil) 20 mg DAILY PO ; Start 03/31/20 at 09:00; Status Cancel Insulin Glargine (Lantus Syringe) 40 unit QHS SQ Last administered on 04/01/20at 21:09; Start 03/30/20 at 21:00 Paroxetine HCl (Paxil) 40 mg DAILY PO Last administered on 04/02/20at 08:41; Start 03/31/20 at 09:00 Ondansetron HCl (Zofran) 4 mg PRN Q4HRS PRN IV NAUSEA/VOMITING; Start 03/30/20 at 20:15 Enoxaparin Sodium (Lovenox 40mg Syringe) 40 mg Q12HR SQ Last administered on 04/01/20at 09:07; Start 03/30/20 at 21:00; Stop 04/01/20 at 17:31; Status DC Psyllium Hydrophilic Mucilloid (Metamucil Fiber Packet) 1 pkt QHS PO Last administered on 03/30/20at 23:08; Start 03/30/20 at 21:00 Polyethylene Glycol (miraLAX PACKET) 17 gm QHS PO ; Start 03/30/20 at 21:00 Magnesium Citrate (Citroma) 296 ml PRN 1X PRN PO CONSTIPATION; Start 03/30/20 at 20:15 Zinc Sulfate (Orazinc) 220 mg DAILY PO Last administered on 04/02/20at 08:40; Start 03/30/20 at 20:15 Hydralazine HCl (Apresoline Inj) 10 mg PRN Q4HRS PRN IVP ELEVATED BP, SEE COMMENTS Last administered on 03/31/20at 12:23; Start 03/30/20 at 20:30; Stop 03/31/20 at 12:30; Status DC Furosemide (Lasix) 20 mg 1X ONCE IVP Last administered on 03/30/20at 23:09; Start 03/30/20 at 21:30; Stop 03/30/20 at 21:31; Status DC Potassium Chloride (Klor-Con) 40 meq 1X ONCE PO Last administered on 03/30/20at 23:08; Start 03/30/20 at 21:30; Stop 03/30/20 at 21:31; Status DC Lorazepam (Ativan) 1 mg PRN Q6HRS PRN PO ANXIETY / AGITATION Last administered on 03/31/20at 12:23; Start 03/30/20 at 21:30 Potassium Chloride (Klor-Con) 40 meq 1X ONCE PO Last administered on 03/31/20at 09:41; Start 03/31/20 at 08:15; Stop 03/31/20 at 08:19; Status DC Sodium Chloride 1,000 ml @ 1,000 mls/hr 1X ONCE IV Last administered on 03/31/20at 10:27; Start 03/31/20 at 10:30; Stop 03/31/20 at 11:29; Status DC Sodium Chloride 1,000 ml @ 125 mls/hr 1X ONCE IV Last administered on 03/31/20at 12:18; Start 03/31/20 at 11:45; Stop 03/31/20 at 12:56; Status DC Metoprolol Tartrate (Lopressor Vial) 5 mg PRN Q6HRS PRN IVP HYPERTENSION Last administered on 03/31/20at 22:28; Start 03/31/20 at 12:30 Acetaminophen (Tylenol) 650 mg PRN Q6HRS PRN PO MILD PAIN 1-3 Last administered on 03/31/20at 17:18; Start 03/31/20 at 17:15 Lisinopril (Prinivil) 5 mg DAILY PO ; Start 04/02/20 at 09:00; Stop 04/01/20 at 15:10; Status DC Metoprolol Succinate (Toprol Xl) 25 mg DAILY PO Last administered on 04/02/20at 08:41; Start 04/02/20 at 09:00 Aspirin (Ecotrin) 81 mg DAILYWBKFT PO ; Start 04/02/20 at 08:00 Furosemide (Lasix) 20 mg 1X ONCE IVP Last administered on 04/01/20at 15:31; Start 04/01/20 at 15:15; Stop 04/01/20 at 15:16; Status DC Potassium Chloride (Klor-Con) 20 meq 1X ONCE PO Last administered on 04/01/20at 15:31; Start 04/01/20 at 15:15; Stop 04/01/20 at 15:16; Status DC Enoxaparin Sodium (Lovenox 40mg Syringe) 40 mg Q24H SQ Last administered on 04/02/20at 08:43; Start 04/02/20 at 09:00 Active Scripts Active Cephalexin 500 Mg Tablet 1,000 Mg PO BID 10 Days Bactrim Ds Tablet (Sulfamethoxazole/Trimethoprim) 1 Each Tablet 1 Tab PO BID 10 Days Zithromax (Azithromycin) 250 Mg Tablet 1 Pkg PO UD Reported Fluticasone Propionate Nasal [place] (Fluticasone Propionate) 16 Gm [place].susp 16 Gm LENA QHS 30 Days Lisinopril 40 Mg Tablet 40 Mg PO DAILY 30 Days Paroxetine Hcl 40 Mg Tablet 40 Mg PO DAILY 30 Days Lantus Solostar (Insulin Glargine,Hum.rec.anlog) 100 Unit/1 Ml Insuln.pen 40 Units SQ QHS 30 Days Humalog (Insulin Lispro) 100 Unit/1 Ml Insuln.pen Unknown Dose SQ Lisinopril 40 Mg Tablet 1 Tab PO DAILY Naproxen 500 Mg Tablet 500 Mg PO Paroxetine Hcl 20 Mg Tablet 20 Mg PO Vitals/I & O Vital Sign - Last 24 Hours 04/01/20 04/01/20 04/01/20 04/01/20 11:17 14:26 19:40 19:48 Temp 98.0 98.4 98.2 98.0 98.4 98.2 Pulse 97 94 98 Resp 18 18 18 B/P (MAP) 145/98 (114) 144/81 (102) 143/90 (107) Pulse Ox 96 95 97 O2 Delivery Room Air Room Air Room Air Room Air 04/01/20 04/02/20 04/02/20 04/02/20 22:38 03:00 07:00 08:41 Temp 98.7 98.3 98.1 98.7 98.3 98.1 Pulse 99 96 95 95 Resp 18 18 18 B/P (MAP) 150/92 (111) 132/79 (96) 133/96 (108) 133/96 Pulse Ox 100 98 94 O2 Delivery Room Air Room Air Room Air 04/02/20 08:42 Pulse 95 B/P (MAP) 133/96 Intake and Output 04/01/20 04/01/20 04/02/20 15:00 23:00 07:00 Intake Total 360 ml 460 ml 1700 ml Balance 360 ml 460 ml 1700 ml GIANLUCA LAM MD April 02, 2020 09:38
[2020-04-02 10:20] VITALS: BP 156/95
--- NOTE | 2020-04-02 10:56 | PDOC ---
CARDIO Progress Notes Date and Time Date of Service 04/02/20 Time of Evaluation 1050 Subjective Subjective: No Chest Pain, No Palpitations, No Dizziness, Other (feels bloated.) Vitals Vitals Vital Signs Date Time Temp Pulse Resp B/P (MAP) Pulse Ox O2 Delivery O2 Flow Rate FiO2 04/02/20 10:20 98.5 101 18 156/95 (115) 96 Room Air 98.5 Weight Weight [ ] Input and Output Intake and Output Intake and Output 04/02/20 07:00 Intake Total 2520 ml Balance 2520 ml Intake Oral 2520 ml # Voids 6 Laboratory Labs Laboratory Tests Test 04/01/20 11:33 04/01/20 16:32 04/01/20 21:04 04/02/20 02:08 Glucose (Fingerstick) 155 mg/dL (70-99) 206 mg/dL (70-99) 251 mg/dL (70-99) 76 mg/dL (70-99) Test 04/02/20 03:01 04/02/20 07:13 04/02/20 07:46 Glucose (Fingerstick) 140 mg/dL (70-99) 79 mg/dL (70-99) 78 mg/dL (70-99) Microbiology Micro Microbiology 03/30/20 Blood Culture - Preliminary, Resulted NO GROWTH AFTER 2 DAYS Physical Exam HEENT: Neck Supple W Full Motion Chest: Symmetric LUNGS: Other (diminished bases ) Heart: S1S2, RRR, murmurs (2/6 systolic murmur ) Abdomen: Soft N/T Extremities: No Edema Neurology: alert, oriented, follow commands Assessment Assessment 1. Dyspnea with acute systolic CHF. Better compensated with diuresis 2. Cardiomyopathy; Echo with LVEF of 25-30%. ? chemo induced 3. Accelerated hypertension; better controlled 4. Mild troponin elevation; peak 0.06. Most probably type II, demand ischemia 5. Sinus tachycardia, most probably physiologic. Improved, now SR 6. Elevated d-dimer; CTA without PE 7. Diabetes, II 8. H/o colon CA s/p resection 09/2019 9. Leukopenia; current chemotherapy. on 09/26 treatments Recommendations Lasix IV x1 now Discussed echo findings, cardiomyopathy extensively Also discussed importance of 2000cc FR and 2Gm Na dietary restriction Dietary consult Will need further ischemic evaluation to r/o obstructive CAD NPO p MN Will tentatively plan for [facility] tomorrow morning Continue lisinopril. Toprol added for Hf optimization Supportive care ALOK KAY APRN April 02, 2020 10:56
[2020-04-02] MEDS ORDERED: METOPROLOL SUCC 24HR ER 25 MG TAB.ER.24H. PO ONE (11:00)
[2020-04-02 11:54] LABS: BASO % 1 % (0-3); EOS # 0.2 x10^3/uL (0.0-0.7); EOS % 5 % (0-3); HEMATOCRIT 36.7 % (36.0-47.0); HEMOGLOBIN 11.9 g/dL (12.0-15.5); LYMPH # 0.8 x10^3/uL (1.0-4.8); LYMPH % 22 % (24-48); MEAN CORPUSCULAR HEMOGLOBIN 26 pg (25-35); MEAN CORPUSCULAR HGB CONC 32 g/dL (31-37); MEAN CORPUSCULAR VOLUME 80 fL (79-100); MONO # 0.3 x10^3/uL (0.0-1.1); MONO % 9 % (0-9); NEUT # 2.3 x10^3/uL (1.8-7.7); NEUT % 64 % (31-73); PLATELET COUNT 254 x10^3/uL (140-400); RED BLOOD COUNT 4.57 x10^6/uL (3.50-5.40); RED CELL DISTRIBUTION WIDTH 17.6 % (11.5-14.5); WHITE BLOOD COUNT 3.7 x10^3/uL (4.0-11.0)
[2020-04-02 12:04] LABS: ALBUMIN 2.9 g/dL (3.4-5.0); ALBUMIN/GLOBULIN RATIO 0.8 (1.0-1.7); CALCIUM 8.3 mg/dL (8.5-10.1); CREATININE 0.8 mg/dL (0.6-1.0); GFR 88.2; POTASSIUM 3.9 mmol/L (3.5-5.1); TOTAL BILIRUBIN 0.2 mg/dL (0.2-1.0); TOTAL PROTEIN 6.6 g/dL (6.4-8.2)
--- NOTE | 2020-04-02 12:06 | NUR ---
SS following up with discharge planning. SS reviewed pt chart and discussed with pt RN. Pt is currently on room air. Pt has new diagnosis of CHF and received Lasix yesterday. Discharge plan is currently to home when ready. SS will continue to follow for discharge planning.
[2020-04-02] MEDS ORDERED: FUROSEMIDE 40 MG/4 ML VIAL. IVP ONE ×2 (12:15→21:45)
[2020-04-02 14:29] VITALS: BP 135/86
--- NOTE | 2020-04-02 14:38 | PDOC2 ---
CONSULT Date of Consult Date of Consult DATE: 04/02/20 TIME: 14:31 Reason for Consult Reason for Consult: Pulmonary edema whilst on chemotherapy FOLFOX regimen for colon cancer . Identification/Chief Complaint Chief Complaint Increasing shortness of breath Source Source: Chart review, Patient History of Present Illness Reason for Visit: Ms Melinda Alejandro is a 60 old female with colon cancer. She underwent s/p resection 09/2019 after abnormal colonoscopy with , and underwent resection with Dr. Ferreira at [facility]. She is currently on FOLFOX chemotherapy since 10/31/[address] Rojas. Her last treatment was on 03/26/2020. Post treatment she had increasing epigastric discomfort and progressive shor tness of breath. Dry cough with no production. She was seen in an urgent and was sent to the ER. Upon admission labs revealed grade 1 neutropenia with WBC of 1.7 and ANC of 1.1. EKG shows probable sinus tachycardia cannot R/O SVT. Echocardiogram revealed ejection fraction of [address] angiogram PE protocol showed no pulmonary embolism,there are right greater than left pleural effusions. Heart is enlarged. Component of heart failure is a consideration.There are areas of infiltrate bilaterally as stated, large area of ground glass density of the right upper lobe with some interspersed mild consolidation and areas of consolidation with air bronchograms most notable of the lingula and right middle lobe. There are also separate more defined pulmonary nodules as stated, largest of the right lower lobe with spiculated margin, metastases in the differential possibilities. There are some calcified nodes bilaterally as may be sequela of granulomatous disease. COVID negative. Today she states she is doing well. Improved shortness of breath post 2 cycles of diuresis with Lasix. No nausea or vomiting. Denies increasing peripheral neuropathy. No dizziness or headaches. Chronic constipation with no gross bleeding. No oral mucositis. No fevers or chills. Past Medical History Cardiovascular: HTN Heme/Onc: Cancer (colorectal ) Psych: Anxiety Endocrine: Diabetes Past Surgical History Past Surgical History: Colectomy, Colon Resection Family History Family History: Cancer (colorectal ), Diabetes, Hypertension Social History Quit ALCOHOL: none Drugs: None Current Problem List Problem List Problems Medical Problems: (1) Dyspnea Status: Acute (2) Neutropenia Status: Acute (3) Suspected COVID-19 virus infection Status: Acute Colon cancer Diabetes Current Medications Current Medications Current Medications Iohexol (Omnipaque 350 Mg/ml) 90 ml 1X ONCE IV Ondansetron HCl (Zofran) 4 mg PRN Q8HRS Insulin Human Lispro (HumaLOG) 0-7 UNITS TIDACHC SQ Fluticasone Propionate (Flonase) Lisinopril (Prinivil) 40 mg DAILY PO Paroxetine HCl (Paxil) 20 mg DAILY Insulin Glargine (Lantus Syringe) 40 unit QHS SQ Paroxetine HCl (Paxil) 40 mg DAILY PO Ondansetron HCl (Zofran) 4 mg PRN Q4HRS Enoxaparin Sodium (Lovenox 40mg Syringe) 40 mg Psyllium Hydrophilic Mucilloid (Metamucil Fiber Packet) 1 pkt QHS Polyethylene Glycol (miraLAX PACKET) 17 gm QHS PO ; Magnesium Citrate (Citroma) 296 ml Zinc Sulfate (Orazinc) 220 mg DAILY PO Hydralazine HCl (Apresoline Inj) 10 mg PRN Furosemide (Lasix) 20 mg 1X ONCE IVP Potassium Chloride (Klor-Con) 40 meq 1X ONCE PO Lorazepam (Ativan) 1 mg PRN Q6HRS PRN PO ANXIETY Potassium Chloride (Klor-Con) 40 meq 1X Metoprolol Tartrate (Lopressor Vial) 5 mg PRN Q6HRS Acetaminophen (Tylenol) 650 mg PRN Q6HRS Lisinopril (Prinivil) 5 mg DAILY PO Metoprolol Succinate (Toprol Xl) 25 mg DAILY PO Enoxaparin Sodium Metoprolol Succinate (Toprol Xl) 50 mg DAILY PO Furosemide 40 mg Active Scripts Active Cephalexin 500 Mg Tablet 1,000 Mg PO BID 10 Days Bactrim Ds Tablet (Sulfamethoxazole/Trimethoprim) 1 Each Tablet 1 Tab PO BID 10 Days Zithromax (Azithromycin) 250 Mg Tablet 1 Pkg PO UD Reported Fluticasone Propionate Nasal [place] (Fluticasone Propionate) 16 Gm [place].susp 16 Gm LENA QHS 30 Days Lisinopril 40 Mg Tablet 40 Mg PO DAILY 30 Days Paroxetine Hcl 40 Mg Tablet 40 Mg PO DAILY 30 Days Lantus Solostar (Insulin Glargine,Hum.rec.anlog) 100 Unit/1 Ml Insuln.pen 40 Units SQ QHS 30 Days Humalog (Insulin Lispro) 100 Unit/1 Ml Insuln.pen Unknown Dose SQ Lisinopril 40 Mg Tablet 1 Tab PO DAILY Naproxen 500 Mg Tablet 500 Mg PO Paroxetine Hcl 20 Mg Tablet 20 Mg PO Allergies Allergies: Coded Allergies: No Known Drug Allergies (Unverified , 08/11/14) Physical Exam Physical Exam GENERAL: No apparent distress. Alert and oriented, sitting comfortable in the bed. HEENT: Head normocephalic, atraumatic. NECK: Supple LUNGS: Clear to auscultation bilaterally HEART: No rate and rhythm ABDOMEN: No abdominal pain or tenderness with palpation EXTREMITIES: No cyanosis or edema. NEUROLOGIC: Normal speech, normal tone PSYCHIATRIC: Normal affect, normal mood. responsive to all questions SKIN: No ulceration. Psych/Mental Status: Mental status NL, Mood NL Vitals VITALS Vital Signs Date Time Temp Pulse Resp B/P (MAP) Pulse Ox O2 Delivery O2 Flow Rate FiO2 04/02/20 14:29 98.7 87 18 135/86 (102) 98 Room Air 98.7 Labs Labs Laboratory Tests Test 03/31/20 16:48 03/31/20 21:47 04/01/20 07:26 04/01/20 11:33 Glucose (Fingerstick) 145 mg/dL (70-99) 159 mg/dL (70-99) 96 mg/dL (70-99) 155 mg/dL (70-99) Test 04/01/20 16:32 04/01/20 21:04 04/02/20 02:08 04/02/20 03:01 Glucose (Fingerstick) 206 mg/dL (70-99) 251 mg/dL (70-99) 76 mg/dL (70-99) 140 mg/dL (70-99) Test 04/02/20 07:13 04/02/20 07:46 04/02/20 11:20 04/02/20 11:23 Glucose (Fingerstick) 79 mg/dL (70-99) 78 mg/dL (70-99) 129 mg/dL (70-99) White Blood Count 3.7 x10^3/uL (4.0-11.0) Red Blood Count 4.57 x10^6/uL (3.50-5.40) Hemoglobin 11.9 g/dL (12.0-15.5) Hematocrit 36.7 % (36.0-47.0) Mean Corpuscular Volume 80 fL (79-100) Mean Corpuscular Hemoglobin 26 pg (25-35) Mean Corpuscular Hemoglobin Concent 32 g/dL (31-37) Red Cell Distribution Width 17.6 % (11.5-14.5) Platelet Count 254 x10^3/uL (140-400) Neutrophils (%) (Auto) 64 % (31-73) Lymphocytes (%) (Auto) 22 % (24-48) Monocytes (%) (Auto) 9 % (0-9) Eosinophils (%) (Auto) 5 % (0-3) Basophils (%) (Auto) 1 % (0-3) Neutrophils # (Auto) 2.3 x10^3/uL (1.8-7.7) Lymphocytes # (Auto) 0.8 x10^3/uL (1.0-4.8) Monocytes # (Auto) 0.3 x10^3/uL (0.0-1.1) Eosinophils # (Auto) 0.2 x10^3/uL (0.0-0.7) Basophils # (Auto) 0.0 x10^3/uL (0.0-0.2) Sodium Level 141 mmol/L (136-145) Potassium Level 3.9 mmol/L (3.5-5.1) Chloride Level 104 mmol/L (98-107) Carbon Dioxide Level 28 mmol/L (21-32) Anion Gap 9 (6-14) Blood Urea Nitrogen 17 mg/dL (7-20) Creatinine 0.8 mg/dL (0.6-1.0) Estimated GFR (Cockcroft-Gault) 88.2 BUN/Creatinine Ratio 21 (6-20) Glucose Level 123 mg/dL (70-99) Calcium Level 8.3 mg/dL (8.5-10.1) Magnesium Level 1.8 mg/dL (1.8-2.4) Total Bilirubin 0.2 mg/dL (0.2-1.0) Aspartate Amino Transf (AST/SGOT) 21 U/L (15-37) Alanine Aminotransferase (ALT/SGPT) 16 U/L (14-59) Alkaline Phosphatase 137 U/L (46-116) Total Protein 6.6 g/dL (6.4-8.2) Albumin 2.9 g/dL (3.4-5.0) Albumin/Globulin Ratio 0.8 (1.0-1.7) Laboratory Tests Test 04/01/20 16:32 04/01/20 21:04 04/02/20 02:08 04/02/20 03:01 Glucose (Fingerstick) 206 mg/dL (70-99) 251 mg/dL (70-99) 76 mg/dL (70-99) 140 mg/dL (70-99) Test 04/02/20 07:13 04/02/20 07:46 04/02/20 11:20 04/02/20 11:23 Glucose (Fingerstick) 79 mg/dL (70-99) 78 mg/dL (70-99) 129 mg/dL (70-99) White Blood Count 3.7 x10^3/uL (4.0-11.0) Red Blood Count 4.57 x10^6/uL (3.50-5.40) Hemoglobin 11.9 g/dL (12.0-15.5) Hematocrit 36.7 % (36.0-47.0) Mean Corpuscular Volume 80 fL (79-100) Mean Corpuscular Hemoglobin 26 pg (25-35) Mean Corpuscular Hemoglobin Concent 32 g/dL (31-37) Red Cell Distribution Width 17.6 % (11.5-14.5) Platelet Count 254 x10^3/uL (140-400) Neutrophils (%) (Auto) 64 % (31-73) Lymphocytes (%) (Auto) 22 % (24-48) Monocytes (%) (Auto) 9 % (0-9) Eosinophils (%) (Auto) 5 % (0-3) Basophils (%) (Auto) 1 % (0-3) Neutrophils # (Auto) 2.3 x10^3/uL (1.8-7.7) Lymphocytes # (Auto) 0.8 x10^3/uL (1.0-4.8) Monocytes # (Auto) 0.3 x10^3/uL (0.0-1.1) Eosinophils # (Auto) 0.2 x10^3/uL (0.0-0.7) Basophils # (Auto) 0.0 x10^3/uL (0.0-0.2) Sodium Level 141 mmol/L (136-145) Potassium Level 3.9 mmol/L (3.5-5.1) Chloride Level 104 mmol/L (98-107) Carbon Dioxide Level 28 mmol/L (21-32) Anion Gap 9 (6-14) Blood Urea Nitrogen 17 mg/dL (7-20) Creatinine 0.8 mg/dL (0.6-1.0) Estimated GFR (Cockcroft-Gault) 88.2 BUN/Creatinine Ratio 21 (6-20) Glucose Level 123 mg/dL (70-99) Calcium Level 8.3 mg/dL (8.5-10.1) Magnesium Level 1.8 mg/dL (1.8-2.4) Total Bilirubin 0.2 mg/dL (0.2-1.0) Aspartate Amino Transf (AST/SGOT) 21 U/L (15-37) Alanine Aminotransferase (ALT/SGPT) 16 U/L (14-59) Alkaline Phosphatase 137 U/L (46-116) Total Protein 6.6 g/dL (6.4-8.2) Albumin 2.9 g/dL (3.4-5.0) Albumin/Globulin Ratio 0.8 (1.0-1.7) Images Images Chest X-ray 03/30/2020: There are small left greater than right pleural effusions with adjacent bibasilar airspace opacity which may be due to infiltrates/atelectasis/edema. 03/30/2020: CTA : None Findings: No pulmonary embolism is identified. There is [id number] dependent right pleural effusion. There is also small left pleural effusion, greater degree of subpulmonic component. There is prominent groundglass infiltrate of the right upper lobe with some interspersed smaller areas of consolidation. There is also some consolidation of the lingula with air bronchograms and also of the right middle lobe with severe bronchograms, difficult to exclude underlying nodularity in this region on this exam. There is somewhat spiculated right lower lobe pulmonary nodule about 1.1 cm image 101 series 3, also likely focus of nodularity of the right lower lobe about 0.8 cm image 104. There is groundglass nodule posteriorly in the right upper lobe about 0.9 cm image 62. There is noncalcified left lower lobe nodule about 0.9 cm image 89 series 3 with somewhat indistinct margins. There is some compressive atelectasis of the left lower lobe near the effusion. Heart is enlarged. There are some calcified bilateral hilar and mediastinal nodes, also some other small noncalcified nodes present. Thoracic aortic caliber is within normal limits, no intraluminal flap. Impression: 1. No pulmonary embolism is identified. 2. There are right greater than left pleural effusions. Heart is enlarged. Component of heart failure is a consideration. 3. There are areas of infiltrate bilaterally as stated, large area of groundglass density of the right upper lobe with some interspersed mild consolidation and areas of consolidation with air bronchograms most notable of the lingula and right middle lobe. There are also separate more defined pulmonary nodules as stated, largest of the right lower lobe with spiculated margin, metastases in the differential possibilities. Short-term follow-up within 1-2 months or PET/CT should be considered. 4. There are some calcified nodes bilaterally as may be sequela of granulomatous disease. Assessment/Plan Assessment/Plan T3 N1aM) stage lllb moderately differentiated colon cancer-Adenocarcinoma of the descending colon diagnosis on 09/11/2019. Started adjuvant FOLFOX chemotherapy on October. Patient has pulmonary edema with new onset of CHF. It is very unlikely but not impossible 5 FU based regimen for treatment of colon cancer contributed to patient's current condition. Chest pains and FL are seen with early induction of 5-FU regimen. This patient has had several cycles of 5- FU regimen therefore new onset of chest pains and FL is unlikely due to 5FU inf usion. Patient will benefit from further management with scaffold erector Dr Alen Fontana. She is scheduled for left heart catheterization with possible intervention on 04/03/2020. Dr Reyes has discussed patient case with both scaffold erector Dr Alen Fontana and color repairer Dr Diaz. Addendum: 04/03/2020: Dr Trinh spoke with scaffold erector, Dr Alen Fontana. It was discussed there was no evidence of significant CAD. Global hypokinesia could be due to 5-FU based chemotherapy. We will need to hold off on current chemo regimen and consider alternative treatment for her. In the meantime, we discussed starting her on Eliquis 2.5 mg bid along with aspirin 81 mg daily for primary prophylaxis of thromboembolic events and CVA in this patient with EF of 25% and metastatic malignancy. Plan: 1. FU post discharge with Dr Reyes to discuss further management of colon cancer 2. Continue anticoagulation therapy with Eliquis 2.5 mg bid and aspirin 81 mg daily. All plans were discussed with Dr Reyes. DENTON AVERY April 02, 2020 14:38
[2020-04-02] MEDS ORDERED: POTASSIUM CHLORIDE 20 MEQ TABLET.ER. PO ONE (15:15)
[2020-04-02 19:35] VITALS: BP 138/92
[2020-04-02] MEDS: FLUTICASONE 50MCG/NASAL SPRAY 16GM BOTTLE. NS SCH (21:00)
[2020-04-02] MEDS: POLYETHYLENE GLYCOL 3350 17 GM PACKET. PO SCH (21:00)
[2020-04-02] MEDS: PSYLLIUM HUSK (SUGAR FREE) 1 PKT PACKET PO SCH (21:00)
[2020-04-02] MEDS ORDERED: ALBUTEROL SULFATE 2.5 MG/3 ML NEBU. NEB PRN (21:30)
[2020-04-02] MEDS: INSULIN GLARGINE SYRINGE. SQ SCH (22:37)
[2020-04-02] MEDS: LORazepam 0.5 MG TABLET PO PRN (22:42)
[2020-04-02 22:45] VITALS: BP 142/89
[2020-04-03] VITALS (14 sets, daily range): BP systolic 119–145; BP diastolic 50–86
[2020-04-03] MEDS: INSULIN LISPRO 300 UNITS/3 ML VIAL. SQ SCH ×4 (07:30→21:00)
[2020-04-03] MEDS ORDERED: LIDOCAINE 1% Multi-Dose 20 ML VIAL. ONE (08:25)
[2020-04-03] MEDS ORDERED: IOHEXOL 300 MG/ML 100ML VIAL. ONE (08:26)
[2020-04-03] MEDS ORDERED: HEPARIN for ARTERIAL LINE 1,500 ML ONE (08:26)
[2020-04-03] MEDS: LISINOPRIL 20 MG TABLET PO SCH (08:53)
[2020-04-03] MEDS: ASPIRIN ENTERIC COATED 81 MG TABLET.DR. PO SCH (08:53)
[2020-04-03] MEDS: METOPROLOL SUCC 24HR ER 25 MG TAB.ER.24H. PO SCH (08:54)
[2020-04-03] MEDS ORDERED: FUROSEMIDE 40 MG/4 ML VIAL. IVP SCH (09:00)
[2020-04-03] MEDS: ENOXAPARIN 40 MG/0.4 ML SYRINGE. SQ SCH (09:00)
[2020-04-03] MEDS ORDERED: fentaNYL PF VIAL 100 MCG/2 ML VIAL ONE (10:12)
[2020-04-03] MEDS ORDERED: MIDAZOLAM HCL/PF 2 MG/2 ML VIAL. ONE (10:12)
--- NOTE | 2020-04-03 10:39 | PDOC ---
MODERATE SEDATION ASSESSMENT RISKS/ALTERNATIVES Risks/Alternatives Risks and alternatives of this type of sedation and procedure discussed with: RISK/ALTERNATIVES: Patient H & P ON CHART H & P H & P on chart and reviewed for co-morbid conditions and appropriate labs. H&P ON CHART: Yes STATUS PREG STATUS ASSESSED: Yes MEDS/ALLERGIES REVIEWED Meds/Allergies Reviewed Medications and Allergies including time and route of recently administered narcotics and sedatives. MEDS/ALLERGIES REVIEWED: Yes ASA RATING ASA RATING: II AIRWAY ASSESSMENT Airway Assessment Airway patency, oral function limitations, presence of caps, crowns, dentures, partials, and ability to extend neck assessed. AIRWAY ASSESSMENT: Yes MALLAMPATI SCORE MALLAMPATI SCORE: II PRE-SEDATION ASSESSMENT PRE-SEDATION ASSESSMENT: Yes DILEEP MORALES MD April 03, 2020 10:39
[2020-04-03] MEDS ORDERED: IOHEXOL 300 MG/ML 100ML VIAL. IART ONE (11:00)
[2020-04-03] MEDS ORDERED: fentaNYL PF VIAL 100 MCG/2 ML VIAL IV ONE (11:00)
[2020-04-03] MEDS ORDERED: MIDAZOLAM HCL/PF 2 MG/2 ML VIAL. IV ONE (11:00)
[2020-04-03] MEDS ORDERED: LIDOCAINE 1% Multi-Dose 20 ML VIAL. INJ ONE (11:00)
--- NOTE | 2020-04-03 11:42 | NUR ---
SS following up with discharge planning. SS reviewed pt chart and discussed with pt RN. Pt on IV Lasix. Pt is getting heart cath today. Discharge plan is currently to home when ready. SS will continue to follow for discharge planning.
--- NOTE | 2020-04-03 12:55 | PDOC ---
PULMONARY PROGRESS NOTES Subjective Still short of air, some chest discomfort Vitals Vital Signs Date Time Temp Pulse Resp B/P (MAP) Pulse Ox O2 Delivery O2 Flow Rate FiO2 04/03/20 11:17 79 13 99 Nasal Cannula 2.0 04/03/20 08:54 121/67 04/03/20 07:00 97.7 97.7 ROS: No Nausea, No Chest Pain, No Abdominal Pain, No Increase Cough General: Alert Lungs: Clear Cardiovascular: S1, S2 Abdomen: Soft Neuro Exam: Alert Extremities: No Edema Skin: Warm Labs Laboratory Tests Test 04/01/20 16:32 04/01/20 21:04 04/02/20 02:08 04/02/20 03:01 Glucose (Fingerstick) 206 mg/dL (70-99) 251 mg/dL (70-99) 76 mg/dL (70-99) 140 mg/dL (70-99) Test 04/02/20 07:13 04/02/20 07:46 04/02/20 11:20 04/02/20 11:23 Glucose (Fingerstick) 79 mg/dL (70-99) 78 mg/dL (70-99) 129 mg/dL (70-99) White Blood Count 3.7 x10^3/uL (4.0-11.0) Red Blood Count 4.57 x10^6/uL (3.50-5.40) Hemoglobin 11.9 g/dL (12.0-15.5) Hematocrit 36.7 % (36.0-47.0) Mean Corpuscular Volume 80 fL (79-100) Mean Corpuscular Hemoglobin 26 pg (25-35) Mean Corpuscular Hemoglobin Concent 32 g/dL (31-37) Red Cell Distribution Width 17.6 % (11.5-14.5) Platelet Count 254 x10^3/uL (140-400) Neutrophils (%) (Auto) 64 % (31-73) Lymphocytes (%) (Auto) 22 % (24-48) Monocytes (%) (Auto) 9 % (0-9) Eosinophils (%) (Auto) 5 % (0-3) Basophils (%) (Auto) 1 % (0-3) Neutrophils # (Auto) 2.3 x10^3/uL (1.8-7.7) Lymphocytes # (Auto) 0.8 x10^3/uL (1.0-4.8) Monocytes # (Auto) 0.3 x10^3/uL (0.0-1.1) Eosinophils # (Auto) 0.2 x10^3/uL (0.0-0.7) Basophils # (Auto) 0.0 x10^3/uL (0.0-0.2) Sodium Level 141 mmol/L (136-145) Potassium Level 3.9 mmol/L (3.5-5.1) Chloride Level 104 mmol/L (98-107) Carbon Dioxide Level 28 mmol/L (21-32) Anion Gap 9 (6-14) Blood Urea Nitrogen 17 mg/dL (7-20) Creatinine 0.8 mg/dL (0.6-1.0) Estimated GFR (Cockcroft-Gault) 88.2 BUN/Creatinine Ratio 21 (6-20) Glucose Level 123 mg/dL (70-99) Calcium Level 8.3 mg/dL (8.5-10.1) Magnesium Level 1.8 mg/dL (1.8-2.4) Total Bilirubin 0.2 mg/dL (0.2-1.0) Aspartate Amino Transf (AST/SGOT) 21 U/L (15-37) Alanine Aminotransferase (ALT/SGPT) 16 U/L (14-59) Alkaline Phosphatase 137 U/L (46-116) Total Protein 6.6 g/dL (6.4-8.2) Albumin 2.9 g/dL (3.4-5.0) Albumin/Globulin Ratio 0.8 (1.0-1.7) Test 04/02/20 16:11 04/02/20 21:09 04/03/20 03:56 04/03/20 05:21 Glucose (Fingerstick) 75 mg/dL (70-99) 131 mg/dL (70-99) 62 mg/dL (70-99) 114 mg/dL (70-99) Test 04/03/20 07:22 04/03/20 10:01 04/03/20 11:56 Glucose (Fingerstick) 141 mg/dL (70-99) 58 mg/dL (70-99) 64 mg/dL (70-99) Laboratory Tests Test 04/02/20 16:11 04/02/20 21:09 04/03/20 03:56 04/03/20 05:21 Glucose (Fingerstick) 75 mg/dL (70-99) 131 mg/dL (70-99) 62 mg/dL (70-99) 114 mg/dL (70-99) Test 04/03/20 07:22 04/03/20 10:01 04/03/20 11:56 Glucose (Fingerstick) 141 mg/dL (70-99) 58 mg/dL (70-99) 64 mg/dL (70-99) Medications Active Scripts Medications Dose Route/Sig Max Daily Dose Days Date Category Fluticasone Propionate Nasal [place] (Fluticasone Propionate) 16 Gm [place].susp 16 Gm LENA QHS 30 03/30/20 Reported Lisinopril 40 Mg Tablet 40 Mg PO DAILY 30 03/30/20 Reported Paroxetine Hcl 40 Mg Tablet 40 Mg PO DAILY 30 03/30/20 Reported Lantus Solostar (Insulin Glargine,Hum.rec.anlog) 100 Unit/1 Ml Insuln.pen 40 Units SQ QHS 30 03/30/20 Reported Cephalexin 500 Mg Tablet 1,000 Mg PO BID 10 04/23/18 Rx Bactrim Ds Tablet (Sulfamethoxazole/Trimethoprim) 1 Each Tablet 1 Tab PO BID 10 04/23/18 Rx Zithromax (Azithromycin) 250 Mg Tablet 1 Pkg PO UD 10/18/16 Rx Humalog (Insulin Lispro) 100 Unit/1 Ml Insuln.pen Unknown Dose SQ 10/18/16 Reported Lisinopril 40 Mg Tablet 1 Tab PO DAILY 10/18/16 Reported Naproxen 500 Mg Tablet 500 Mg PO 12/18/13 Reported Paroxetine Hcl 20 Mg Tablet 20 Mg PO 12/18/13 Reported Impression . IMPRESSION: 1. Progressive dyspnea secondary to acute pulmonary edema. 2. Cardiomyopathy, possibly related to chemotherapy. 3. Colon cancer, status post resection, currently undergoing chemotherapy with FOLFOX. 4. Leukopenia. 5. Anxiety disorder. 6. Type 2 diabetes. 7. Elevated troponin. 8. Abnormal CT chest revealing bilateral effusions and infiltrates. 9. SARS-CoV-2 negative Plan . Cardiac catheterization today Continue to diuresis discussed with Dr. Trinh, and Dr. Fontana No need for antibiotics PRN benzodiazepine SHARRON PADRON MD April 03, 2020 12:55
--- NOTE | 2020-04-03 13:44 | PDOC ---
PROGRESS NOTES Chief Complaint Chief Complaint acute systolic CHF, w. angina prominent groundglass infiltrate of the right upper lobe with some interspersed smaller areas of consolidation. There is also some consolidation of the lingula with air bronchograms and also of the right middle lobe with severe bronchograms Neutropenia , MODERATE ON NEUTROPENIC DIET Cardiomegaly Left ventricle systolic function is severely impaired. on echo, Ejection Fraction is 25-30%.global hypokinesis of the left ventricle.mild to moderate mitral regurgitation. PA pressure was estimated at 46 mmHg. c/w moderate pulm HTN Abnormal CT chest right greater than left pleural effusions. Heart is enlarged.//Component of heart failure . Anxiety Diabetes-Type II Hypertension Colon ca s/p resection 09/2019 History of Present Illness History of Present Illness 04/03/2020 Patient seen and examined Chart reviewed Discussed with RN URINE OUTPUT LOW, WILL DOSE DAILY IV LASIX Ms Alejandro is a 60yo F w/ PMHx Anxiety, Diabetes-Type II, Hypertension, colon ca s/p resection 09/2019 after abnormal colonoscopy with , and underwent resection with Dr. Ferreira at [facility], with subsequent port placement and h as been under treatment presumably with FOLFOX with Dr. Rojas. Her last treatment was upcoming. Over the last week she has been experiencing some epigastric discomfort and intermittent constipation and some mild shortness of breath. She has associated nonproductive cough, chest pain on deep inspiration. She went to urgent care had abnormal chest x-ray. She has had no fevers no r ecent sick contacts, though she does note every after her chemo treatments she does go to the grocery store and has been uncomfortable with a number of people who do not wear masks during the coronavirus pandemic. She herself does wear a mask and frequently washes her hands and face. Labs reveal neutropenia WBC 1.7 with ANC 1.1, Hb 12.7, Platelets 245, Albumin 3.3, Na 139, K 3.6, BUN 13, Cr 0.9, glucose 272, Troponin 0.067, BNP in 4000s, procalcitonin negative. INR 1.1, d dimer elevated. CT scan her chest did not show any pulmonary embolus however shows a diffuse groundglass appearance, MORE on the right side. Patient is suspected of COVID- 19 infection. Patient admitted to hospital for further treatment. Troponin decrased from 0.060 to 0.052. She feels better, but now is persistently tachycardic in the 140s. Shortness of breath and constipation improved. Not hypoxic. Plan: Bolus 1L NSS Will d/w pulmonology her abnormal CT findings and Cardiology as well. This was treated as pulmonary edema/chf on 03/30/20 but this does not seem to the full picture. Vitals Vitals Vital Signs Date Time Temp Pulse Resp B/P (MAP) Pulse Ox O2 Delivery O2 Flow Rate FiO2 04/03/20 11:17 79 13 99 Nasal Cannula 2.0 04/03/20 08:54 121/67 04/03/20 07:00 97.7 97.7 Physical Exam General: Oriented X3, No acute distress Heart: Regular rate Lungs: Clear Abdomen: Soft, No tenderness Extremities: No edema, No tenderness/swelling Skin: No rashes Labs LABS Laboratory Tests Test 04/02/20 16:11 04/02/20 21:09 04/03/20 03:56 04/03/20 05:21 Glucose (Fingerstick) 75 mg/dL (70-99) 131 mg/dL (70-99) 62 mg/dL (70-99) 114 mg/dL (70-99) Test 04/03/20 07:22 04/03/20 10:01 04/03/20 11:56 Glucose (Fingerstick) 141 mg/dL (70-99) 58 mg/dL (70-99) 64 mg/dL (70-99) Assessment and Plan Assessmemt and Plan Problems Medical Problems: (1) Dyspnea Status: Acute (2) Neutropenia Status: Acute (3) Suspected COVID-19 virus infection Status: Acute Comment Review of Relevant I have reviewed the following items primitivo (where applicable) has been applied. Labs Laboratory Tests Test 04/01/20 16:32 04/01/20 21:04 04/02/20 02:08 04/02/20 03:01 Glucose (Fingerstick) 206 mg/dL (70-99) 251 mg/dL (70-99) 76 mg/dL (70-99) 140 mg/dL (70-99) Test 04/02/20 07:13 04/02/20 07:46 04/02/20 11:20 04/02/20 11:23 Glucose (Fingerstick) 79 mg/dL (70-99) 78 mg/dL (70-99) 129 mg/dL (70-99) White Blood Count 3.7 x10^3/uL (4.0-11.0) Red Blood Count 4.57 x10^6/uL (3.50-5.40) Hemoglobin 11.9 g/dL (12.0-15.5) Hematocrit 36.7 % (36.0-47.0) Mean Corpuscular Volume 80 fL (79-100) Mean Corpuscular Hemoglobin 26 pg (25-35) Mean Corpuscular Hemoglobin Concent 32 g/dL (31-37) Red Cell Distribution Width 17.6 % (11.5-14.5) Platelet Count 254 x10^3/uL (140-400) Neutrophils (%) (Auto) 64 % (31-73) Lymphocytes (%) (Auto) 22 % (24-48) Monocytes (%) (Auto) 9 % (0-9) Eosinophils (%) (Auto) 5 % (0-3) Basophils (%) (Auto) 1 % (0-3) Neutrophils # (Auto) 2.3 x10^3/uL (1.8-7.7) Lymphocytes # (Auto) 0.8 x10^3/uL (1.0-4.8) Monocytes # (Auto) 0.3 x10^3/uL (0.0-1.1) Eosinophils # (Auto) 0.2 x10^3/uL (0.0-0.7) Basophils # (Auto) 0.0 x10^3/uL (0.0-0.2) Sodium Level 141 mmol/L (136-145) Potassium Level 3.9 mmol/L (3.5-5.1) Chloride Level 104 mmol/L (98-107) Carbon Dioxide Level 28 mmol/L (21-32) Anion Gap 9 (6-14) Blood Urea Nitrogen 17 mg/dL (7-20) Creatinine 0.8 mg/dL (0.6-1.0) Estimated GFR (Cockcroft-Gault) 88.2 BUN/Creatinine Ratio 21 (6-20) Glucose Level 123 mg/dL (70-99) Calcium Level 8.3 mg/dL (8.5-10.1) Magnesium Level 1.8 mg/dL (1.8-2.4) Total Bilirubin 0.2 mg/dL (0.2-1.0) Aspartate Amino Transf (AST/SGOT) 21 U/L (15-37) Alanine Aminotransferase (ALT/SGPT) 16 U/L (14-59) Alkaline Phosphatase 137 U/L (46-116) Total Protein 6.6 g/dL (6.4-8.2) Albumin 2.9 g/dL (3.4-5.0) Albumin/Globulin Ratio 0.8 (1.0-1.7) Test 04/02/20 16:11 04/02/20 21:09 04/03/20 03:56 04/03/20 05:21 Glucose (Fingerstick) 75 mg/dL (70-99) 131 mg/dL (70-99) 62 mg/dL (70-99) 114 mg/dL (70-99) Test 04/03/20 07:22 04/03/20 10:01 04/03/20 11:56 Glucose (Fingerstick) 141 mg/dL (70-99) 58 mg/dL (70-99) 64 mg/dL (70-99) Laboratory Tests Test 04/02/20 16:11 04/02/20 21:09 04/03/20 03:56 04/03/20 05:21 Glucose (Fingerstick) 75 mg/dL (70-99) 131 mg/dL (70-99) 62 mg/dL (70-99) 114 mg/dL (70-99) Test 04/03/20 07:22 04/03/20 10:01 04/03/20 11:56 Glucose (Fingerstick) 141 mg/dL (70-99) 58 mg/dL (70-99) 64 mg/dL (70-99) Microbiology 03/30/20 Blood Culture - Preliminary, Resulted NO GROWTH AFTER 3 DAYS Medications Current Medications Iohexol (Omnipaque 350 Mg/ml) 90 ml 1X ONCE IV ; Start 03/30/20 at 14:30; Stop 03/30/20 at 14:31; Status DC Info (CONTRAST GIVEN -- Rx MONITORING) 1 each PRN DAILY PRN MC SEE COMMENTS; Start 03/30/20 at 14:30; Stop 04/01/20 at 14:29; Status DC Ondansetron HCl (Zofran) 4 mg PRN Q8HRS PRN IV NAUSEA/VOMITING; Start 03/30/20 at 17:30; Stop 03/30/20 at 20:18; Status DC Insulin Human Lispro (HumaLOG) 0-7 UNITS TIDACHC SQ Last administered on 03/31/20at 12:19; Start 03/30/20 at 21:00 Dextrose (Dextrose 50%-Water Syringe) 12.5 gm PRN Q15MIN PRN IV SEE COMMENTS; Start 03/30/20 at 17:45 Fluticasone Propionate (Flonase) 1 spray QHS NS ; Start 03/30/20 at 21:00 Lisinopril (Prinivil) 40 mg DAILY PO Last administered on 04/03/20at 08:53; Start 03/31/20 at 09:00 Paroxetine HCl (Paxil) 20 mg DAILY PO ; Start 03/31/20 at 09:00; Status Cancel Insulin Glargine (Lantus Syringe) 40 unit QHS SQ Last administered on 04/02/20at 22:37; Start 03/30/20 at 21:00 Paroxetine HCl (Paxil) 40 mg DAILY PO Last administered on 04/02/20at 08:41; Start 03/31/20 at 09:00 Ondansetron HCl (Zofran) 4 mg PRN Q4HRS PRN IV NAUSEA/VOMITING; Start 03/30/20 at 20:15 Enoxaparin Sodium (Lovenox 40mg Syringe) 40 mg Q12HR SQ Last administered on 04/01/20at 09:07; Start 03/30/20 at 21:00; Stop 04/01/20 at 17:31; Status DC Psyllium Hydrophilic Mucilloid (Metamucil Fiber Packet) 1 pkt QHS PO Last administered on 03/30/20at 23:08; Start 03/30/20 at 21:00 Polyethylene Glycol (miraLAX PACKET) 17 gm QHS PO ; Start 03/30/20 at 21:00 Magnesium Citrate (Citroma) 296 ml PRN 1X PRN PO CONSTIPATION; Start 03/30/20 at 20:15 Zinc Sulfate (Orazinc) 220 mg DAILY PO Last administered on 04/02/20at 08:40; Start 03/30/20 at 20:15 Hydralazine HCl (Apresoline Inj) 10 mg PRN Q4HRS PRN IVP ELEVATED BP, SEE COMMENTS Last administered on 03/31/20at 12:23; Start 03/30/20 at 20:30; Stop 03/31/20 at 12:30; Status DC Furosemide (Lasix) 20 mg 1X ONCE IVP Last administered on 03/30/20at 23:09; Start 03/30/20 at 21:30; Stop 03/30/20 at 21:31; Status DC Potassium Chloride (Klor-Con) 40 meq 1X ONCE PO Last administered on 03/30/20at 23:08; Start 03/30/20 at 21:30; Stop 03/30/20 at 21:31; Status DC Lorazepam (Ativan) 1 mg PRN Q6HRS PRN PO ANXIETY / AGITATION Last administered on 03/31/20at 12:23; Start 03/30/20 at 21:30 Potassium Chloride (Klor-Con) 40 meq 1X ONCE PO Last administered on 03/31/20at 09:41; Start 03/31/20 at 08:15; Stop 03/31/20 at 08:19; Status DC Sodium Chloride 1,000 ml @ 1,000 mls/hr 1X ONCE IV Last administered on 03/31/20at 10:27; Start 03/31/20 at 10:30; Stop 03/31/20 at 11:29; Status DC Sodium Chloride 1,000 ml @ 125 mls/hr 1X ONCE IV Last administered on 03/31/20at 12:18; Start 03/31/20 at 11:45; Stop 03/31/20 at 12:56; Status DC Metoprolol Tartrate (Lopressor Vial) 5 mg PRN Q6HRS PRN IVP HYPERTENSION Last administered on 03/31/20at 22:28; Start 03/31/20 at 12:30 Acetaminophen (Tylenol) 650 mg PRN Q6HRS PRN PO MILD PAIN 1-3 Last administered on 03/31/20at 17:18; Start 03/31/20 at 17:15 Lisinopril (Prinivil) 5 mg DAILY PO ; Start 04/02/20 at 09:00; Stop 04/01/20 at 15:10; Status DC Metoprolol Succinate (Toprol Xl) 25 mg DAILY PO Last administered on 04/02/20 08:41; Start 04/02/20 at 09:00; Stop 04/02/20 at 10:56; Status DC Aspirin (Ecotrin) 81 mg DAILYWBKFT PO Last administered on 04/03/20at 08:53; Start 04/02/20 at 08:00 Furosemide (Lasix) 20 mg 1X ONCE IVP Last administered on 04/01/20at 15:31; Start 04/01/20 at 15:15; Stop 04/01/20 at 15:16; Status DC Potassium Chloride (Klor-Con) 20 meq 1X ONCE PO Last administered on 04/01/20at 15:31; Start 04/01/20 at 15:15; Stop 04/01/20 at 15:16; Status DC Enoxaparin Sodium (Lovenox 40mg Syringe) 40 mg Q24H SQ Last administered on 04/02/20at 08:43; Start 04/02/20 at 09:00 Metoprolol Succinate (Toprol Xl) 50 mg DAILY PO Last administered on 04/03/20at 08:54; Start 04/03/20 at 09:00 Metoprolol Succinate (Toprol Xl) 25 mg 1X ONCE PO Last administered on 04/02/20at 12:31; Start 04/02/20 at 11:00; Stop 04/02/20 at 11:01; Status DC Furosemide (Lasix) 40 mg DAILY IVP ; Start 04/03/20 at 09:00 Furosemide (Lasix) 40 mg 1X ONCE IVP Last administered on 04/02/20at 12:32; Start 04/02/20 at 12:15; Stop 04/02/20 at 12:16; Status DC Potassium Chloride (Klor-Con) 20 meq 1X ONCE PO Last administered on 04/02/20at 16:21; Start 04/02/20 at 15:15; Stop 04/02/20 at 15:16; Status DC Albuterol Sulfate (Ventolin Neb Soln) 2.5 mg PRN Q6HRS PRN NEB SHORTNESS OF BREATH Last administered on 04/02/20at 21:46; Start 04/02/20 at 21:30 Lorazepam (Ativan) 0.5 mg PRN QHS PRN PO ANXIETY / AGITATION Last administered on 04/02/20at 22:42; Start 04/02/20 at 21:30 Furosemide (Lasix) 40 mg 1X ONCE IVP Last administered on 04/02/20at 22:36; Start 04/02/20 at 21:45; Stop 04/02/20 at 21:46; Status DC Lidocaine HCl (Lidocaine 1% 20ml Vial) 20 ml STK-MED ONCE .ROUTE ; Start 04/03/20 at 08:25; Stop 04/03/20 at 08:26; Status DC Heparin Sodium/ Sodium Chloride 1,500 ml @ As Directed STK-MED ONCE .ROUTE ; Start 04/03/20 at 08:26; Stop 04/03/20 at 08:26; Status DC Iohexol (Omnipaque 300 Mg/ml) 100 ml STK-MED ONCE .ROUTE ; Start 04/03/20 at 08:26; Stop 04/03/20 at 08:26; Status DC Fentanyl Citrate (Fentanyl 2ml Vial) 100 mcg STK-MED ONCE .ROUTE ; Start 04/03/20 at 10:12; Stop 04/03/20 at 10:12; Status DC Midazolam HCl (Versed) 2 mg STK-MED ONCE .ROUTE ; Start 04/03/20 at 10:12; Stop 04/03/20 at 10:12; Status DC Heparin Sodium/ Sodium Chloride (HEPARIN for ARTERIAL LINE FLUSH) 1,000 unit 1X ONCE IART Last administered on 04/03/20at 11:10; Start 04/03/20 at 11:00; Stop 04/03/20 at 11:02; Status DC Heparin Sodium/ Sodium Chloride (HEPARIN for ARTERIAL LINE FLUSH) 1,000 unit 1X ONCE IART Last administered on 04/03/20at 11:10; Start 04/03/20 at 11:00; Stop 04/03/20 at 11:02; Status DC Midazolam HCl (Versed) 2 mg 1X ONCE IV Last administered on 04/03/20at 11:11; Start 04/03/20 at 11:00; Stop 04/03/20 at 11:02; Status DC Fentanyl Citrate (Fentanyl 2ml Vial) 100 mcg 1X ONCE IV Last administered on 04/03/20at 11:11; Start 04/03/20 at 11:00; Stop 04/03/20 at 11:02; Status DC Iohexol (Omnipaque 300 Mg/ml) 100 ml 1X ONCE IART Last administered on 04/03/20at 11:10; Start 04/03/20 at 11:00; Stop 04/03/20 at 11:02; Status DC Lidocaine HCl (Lidocaine 1% 20ml Vial) 20 ml 1X ONCE INJ Last administered on 04/03/20at 11:10; Start 04/03/20 at 11:00; Stop 04/03/20 at 11:02; Status DC Active Scripts Active Cephalexin 500 Mg Tablet 1,000 Mg PO BID 10 Days Bactrim Ds Tablet (Sulfamethoxazole/Trimethoprim) 1 Each Tablet 1 Tab PO BID 10 Days Zithromax (Azithromycin) 250 Mg Tablet 1 Pkg PO UD Reported Fluticasone Propionate Nasal [place] (Fluticasone Propionate) 16 Gm [place].susp 16 Gm LENA QHS 30 Days Lisinopril 40 Mg Tablet 40 Mg PO DAILY 30 Days Paroxetine Hcl 40 Mg Tablet 40 Mg PO DAILY 30 Days Lantus Solostar (Insulin Glargine,Hum.rec.anlog) 100 Unit/1 Ml Insuln.pen 40 Units SQ QHS 30 Days Humalog (Insulin Lispro) 100 Unit/1 Ml Insuln.pen Unknown Dose SQ Lisinopril 40 Mg Tablet 1 Tab PO DAILY Naproxen 500 Mg Tablet 500 Mg PO Paroxetine Hcl 20 Mg Tablet 20 Mg PO Vitals/I & O Vital Sign - Last 24 Hours 04/02/20 04/02/20 04/02/20 04/02/20 14:29 19:35 20:00 21:46 Temp 98.7 98.3 98.7 98.3 Pulse 87 88 Resp 18 18 B/P (MAP) 135/86 (102) 138/92 (107) Pulse Ox 98 98 O2 Delivery Room Air Room Air Room Air Room Air 04/02/20 04/03/20 04/03/20 04/03/20 22:45 03:05 07:00 08:00 Temp 97.9 98.5 97.7 97.9 98.5 97.7 Pulse 93 67 84 Resp 18 20 16 B/P (MAP) 142/89 (106) 122/69 (86) 121/67 (85) Pulse Ox 97 95 94 O2 Delivery Room Air Room Air Room Air Room Air 04/03/20 04/03/20 04/03/20 04/03/20 08:53 08:54 11:11 11:17 Pulse 84 84 79 Resp 14 13 B/P (MAP) 121/67 121/67 Pulse Ox 97 99 O2 Delivery Nasal Cannula Nasal Cannula O2 Flow Rate 2.0 2.0 Intake and Output 04/02/20 04/02/20 04/03/20 15:00 23:00 07:00 Intake Total 480 ml 800 ml 520 ml Output Total 1000 ml 700 ml Balance 480 ml -200 ml -180 ml ANG BALL MD April 03, 2020 13:44
--- NOTE | 2020-04-03 15:23 | CARD ---
MR#: [id number] Date of Study: 04/03/2020 Ordering Physician: ALOK KAY, Referring Physician: ALOK KAY, Tech: Marisol Velez, RT (R) APPROVED REPORT Procedures Left heart catheterization Left ventriculogram Selective coronary angiogram Aortic root injection The patient is a 60-year-old female with a history of cancer treated with chemotherapy who was admitt ed for heart failure. Work-up showed his significantly decreased ejection fraction on echocardiogram . Patient was diuresed and we recommended cardiac catheterization to exclude underlying coronary art amanda disease in the setting of her new onset cardiomyopathy. Risks and benefits were discussed with t he patient. She agreed to proceed. After informed consent was obtained the patient was brought to the heart catheterization lab. The ar ea of the right femoral artery was prepared in the usual manner with Betadine, sterile draping and lo benjamín anesthetic. An 18-gauge needle was used to enter the right femoral artery, a wire placed and a 6 [place] sheath placed over the wire. A JL 4.0 diagnostic catheter was used to engage the left system and sequential injections in various views were obtained. A 6 [place] Raul right diagnostic cath eter was used to engage the right coronary artery and sequential injections of various views were obt ained. A pigtail catheter was then advanced into the left ventricle. Pressures were obtained. A 30 degree ALBA aortic root injection was performed. Pullback pressures were measured. Following this a 30 degree aortic root injection was performed. The catheter was removed from the patient. All [place] th exchanges were over a J-wire. The sheath was removed from the patient with hemostasis as per dir ect pressure. There were no immediate complications. Findings. Hemodynamics. LV 145/34/10. Aortic root 142/65 Coronaries Left main. The left main had no lesions. Left anterior descending. The LAD was a moderate size vessel. It had mid 15% lesion. Left circumflex. The left circumflex was a moderate size vessel. It had distal 30 to 40% lesions. Right coronary artery the right coronary was a moderate size vessel. It had no lesions. Left ventriculogram. The left ventricle shows severely decreased global hypokinesis. Ejection fraction of 20 to 25%. The patient had a brief episode of PSVT during the injection. Aortic root. The aortic root was normal with no evidence of significant AI. <Conclusion> Mild to moderate coronary artery disease with distal 30 to 40% lesions in the left circumflex and a m id 15% LAD lesion. Severely decreased LV systolic function on a global basis with an ejection fraction of 20 to 25%. Elevated left-sided pressures. Signed by : Alen Clements MD Electronically Approved : 04/03/2020 15:22:56
[2020-04-03] MEDS ORDERED: FUROSEMIDE 40 MG TABLET. PO SCH (15:30)
[2020-04-03] MEDS: ZINC SULFATE 220 MG CAPSULE. PO SCH (16:23)
[2020-04-03] MEDS: PARoxetine 20 MG TABLET PO SCH (16:23)
[2020-04-03] MEDS: INSULIN GLARGINE SYRINGE. SQ SCH (21:00)
[2020-04-03] MEDS: POLYETHYLENE GLYCOL 3350 17 GM PACKET. PO SCH (21:00)
[2020-04-03] MEDS: FLUTICASONE 50MCG/NASAL SPRAY 16GM BOTTLE. NS SCH (21:00)
[2020-04-03] MEDS: PSYLLIUM HUSK (SUGAR FREE) 1 PKT PACKET PO SCH (21:00)
[2020-04-03] MEDS: LORazepam 0.5 MG TABLET PO PRN (22:03)
[2020-04-03] MEDS: FUROSEMIDE 40 MG TABLET. PO SCH (23:00)
[2020-04-03] MEDS ORDERED: FUROSEMIDE 20 MG TABLET PO ONE (23:30)
[2020-04-04 02:22] VITALS: BP 130/79
[2020-04-04 07:00] VITALS: BP 125/77
[2020-04-04] MEDS: INSULIN LISPRO 300 UNITS/3 ML VIAL. SQ SCH ×4 (07:30→21:00)
[2020-04-04] MEDS: ASPIRIN ENTERIC COATED 81 MG TABLET.DR. PO SCH (08:00)
[2020-04-04] MEDS: ZINC SULFATE 220 MG CAPSULE. PO SCH (10:33)
[2020-04-04] MEDS: FUROSEMIDE 40 MG TABLET. PO SCH ×2 (10:33→17:21)
[2020-04-04] MEDS: PARoxetine 20 MG TABLET PO SCH (10:33)
[2020-04-04] MEDS: LISINOPRIL 20 MG TABLET PO SCH (10:34)
[2020-04-04] MEDS: METOPROLOL SUCC 24HR ER 25 MG TAB.ER.24H. PO SCH (10:35)
[2020-04-04] MEDS: ENOXAPARIN 40 MG/0.4 ML SYRINGE. SQ SCH (10:35)
[2020-04-04] MEDS ORDERED: ANTI-COAG MONITOR BY PHARMACY. MC PRN (10:45)
[2020-04-04] MEDS ORDERED: FUROSEMIDE 40 MG/4 ML VIAL. IVP ONE (10:45)
--- NOTE | 2020-04-04 10:47 | PDOC ---
ALOK KAY ELECTRICAL TESTER 04/04/20 1047: CARDIO Progress Notes Date and Time Date of Service 04/04/20 Time of Evaluation 1020 Subjective Subjective: No Chest Pain, No Palpitations, No Dizziness, Other (SOA overngiht ) Vitals Vitals Vital Signs Date Time Temp Pulse Resp B/P (MAP) Pulse Ox O2 Delivery O2 Flow Rate FiO2 04/04/20 07:00 98.4 86 18 125/77 (93) 95 Room Air 98.4 04/03/20 11:17 2.0 Weight Weight [ ] Input and Output Intake and Output Intake and Output 04/04/20 07:00 Intake Total 1600 ml Output Total 650 ml Balance 950 ml Intake Oral 1600 ml Output Urine Total 650 ml # Voids 4 Laboratory Labs Laboratory Tests Test 04/03/20 11:56 04/03/20 16:34 04/03/20 21:01 04/04/20 07:27 Glucose (Fingerstick) 64 mg/dL (70-99) 210 mg/dL (70-99) 260 mg/dL (70-99) 111 mg/dL (70-99) Microbiology Micro Microbiology 03/30/20 Blood Culture - Preliminary, Resulted NO GROWTH AFTER 4 DAYS Physical Exam HEENT: Neck Supple W Full Motion Chest: Symmetric LUNGS: Other (diminished bases ) Heart: S1S2, RRR, murmurs (2/6 systolic murmur ) Abdomen: Soft N/T Extremities: No Edema Neurology: alert, oriented, follow commands Assessment Assessment 1. Dyspnea with acute systolic CHF. Cath with elevated filling pressure 2. Non-ischemic cardiomyopathy; Echo with LVEF of 25%. Cath without significant obstructive disease 3. Accelerated hypertension; controlled 4. Mild troponin elevation; peak 0.06. Type II, demand ischemia 5. Sinus tachycardia, most probably physiologic. Improved, now SR 6. Elevated d-dimer; CTA without PE 7. Diabetes, II 8. H/o colon CA s/p resection 09/2019 9. Leukopenia; current chemotherapy. on 09/26 treatments Recommendations Lasix IV x1, Repeat BMP, Mg Primary cardioliologist discussed case with oncologist. Will start low-dose Eliquis as patient is a high risk for clots given CA and NICM Continue ASA 2000cc FR and 2Gm Na dietary restriction Will arrange for LifeVest for primary prevention of SCD given significant LV dysfunction HF optimization with Lasix, lisinopril, and Toprol Supportive care Will re-evaluate LV function in 3 months on an outpatient basis to assess need for AICD implantation. DILEEP MORALES MD 04/04/20 1547: CARDIO Progress Notes Assessment Assessment Patient seen and examined Assessment Dyspnea with acute systolic CHF. Cath with elevated filling pressure. Continue diuresis with monitoring of lab. Non-ischemic cardiomyopathy; Echo with LVEF of 25%. Cath without significant obstructive disease. LifeVest. Accelerated hypertension; controlled H/o colon CA s/p resection 09/2019 Leukopenia; current chemotherapy. on 09/26 treatments ALOK KAY APRN April 04, 2020 10:47 DILEEP MORALES MD April 04, 2020 15:47
[2020-04-04 11:00] VITALS: BP 140/80
[2020-04-04] MEDS ORDERED: APIXABAN 2.5 MG TABLET. PO SCH (11:00)
--- NOTE | 2020-04-04 11:01 | PDOC ---
PULMONARY PROGRESS NOTES Subjective Patient feels better, at times anxious regarding her diagnosis Vitals Vital Signs Date Time Temp Pulse Resp B/P (MAP) Pulse Ox O2 Delivery O2 Flow Rate FiO2 04/04/20 10:35 86 125/77 04/04/20 07:00 98.4 18 95 Room Air 98.4 04/03/20 11:17 2.0 ROS: No Nausea, No Chest Pain, No Abdominal Pain, No Increase Cough General: Alert Lungs: Clear Cardiovascular: S1, S2 Abdomen: Soft Neuro Exam: Alert Extremities: No Edema Skin: Warm Labs Laboratory Tests Test 04/02/20 11:20 04/02/20 11:23 04/02/20 16:11 04/02/20 21:09 White Blood Count 3.7 x10^3/uL (4.0-11.0) Red Blood Count 4.57 x10^6/uL (3.50-5.40) Hemoglobin 11.9 g/dL (12.0-15.5) Hematocrit 36.7 % (36.0-47.0) Mean Corpuscular Volume 80 fL (79-100) Mean Corpuscular Hemoglobin 26 pg (25-35) Mean Corpuscular Hemoglobin Concent 32 g/dL (31-37) Red Cell Distribution Width 17.6 % (11.5-14.5) Platelet Count 254 x10^3/uL (140-400) Neutrophils (%) (Auto) 64 % (31-73) Lymphocytes (%) (Auto) 22 % (24-48) Monocytes (%) (Auto) 9 % (0-9) Eosinophils (%) (Auto) 5 % (0-3) Basophils (%) (Auto) 1 % (0-3) Neutrophils # (Auto) 2.3 x10^3/uL (1.8-7.7) Lymphocytes # (Auto) 0.8 x10^3/uL (1.0-4.8) Monocytes # (Auto) 0.3 x10^3/uL (0.0-1.1) Eosinophils # (Auto) 0.2 x10^3/uL (0.0-0.7) Basophils # (Auto) 0.0 x10^3/uL (0.0-0.2) Sodium Level 141 mmol/L (136-145) Potassium Level 3.9 mmol/L (3.5-5.1) Chloride Level 104 mmol/L (98-107) Carbon Dioxide Level 28 mmol/L (21-32) Anion Gap 9 (6-14) Blood Urea Nitrogen 17 mg/dL (7-20) Creatinine 0.8 mg/dL (0.6-1.0) Estimated GFR (Cockcroft-Gault) 88.2 BUN/Creatinine Ratio 21 (6-20) Glucose Level 123 mg/dL (70-99) Calcium Level 8.3 mg/dL (8.5-10.1) Magnesium Level 1.8 mg/dL (1.8-2.4) Total Bilirubin 0.2 mg/dL (0.2-1.0) Aspartate Amino Transf (AST/SGOT) 21 U/L (15-37) Alanine Aminotransferase (ALT/SGPT) 16 U/L (14-59) Alkaline Phosphatase 137 U/L (46-116) Total Protein 6.6 g/dL (6.4-8.2) Albumin 2.9 g/dL (3.4-5.0) Albumin/Globulin Ratio 0.8 (1.0-1.7) Glucose (Fingerstick) 129 mg/dL (70-99) 75 mg/dL (70-99) 131 mg/dL (70-99) Test 04/03/20 03:56 04/03/20 05:21 04/03/20 07:22 04/03/20 10:01 Glucose (Fingerstick) 62 mg/dL (70-99) 114 mg/dL (70-99) 141 mg/dL (70-99) 58 mg/dL (70-99) Test 04/03/20 11:56 04/03/20 16:34 04/03/20 21:01 04/04/20 07:27 Glucose (Fingerstick) 64 mg/dL (70-99) 210 mg/dL (70-99) 260 mg/dL (70-99) 111 mg/dL (70-99) Laboratory Tests Test 04/03/20 11:56 04/03/20 16:34 04/03/20 21:01 04/04/20 07:27 Glucose (Fingerstick) 64 mg/dL (70-99) 210 mg/dL (70-99) 260 mg/dL (70-99) 111 mg/dL (70-99) Medications Active Scripts Medications Dose Route/Sig Max Daily Dose Days Date Category Fluticasone Propionate Nasal [place] (Fluticasone Propionate) 16 Gm [place].susp 16 Gm LENA QHS 30 03/30/20 Reported Lisinopril 40 Mg Tablet 40 Mg PO DAILY 30 03/30/20 Reported Paroxetine Hcl 40 Mg Tablet 40 Mg PO DAILY 30 03/30/20 Reported Lantus Solostar (Insulin Glargine,Hum.rec.anlog) 100 Unit/1 Ml Insuln.pen 40 Units SQ QHS 30 03/30/20 Reported Cephalexin 500 Mg Tablet 1,000 Mg PO BID 10 04/23/18 Rx Bactrim Ds Tablet (Sulfamethoxazole/Trimethoprim) 1 Each Tablet 1 Tab PO BID 10 04/23/18 Rx Zithromax (Azithromycin) 250 Mg Tablet 1 Pkg PO UD 10/18/16 Rx Humalog (Insulin Lispro) 100 Unit/1 Ml Insuln.pen Unknown Dose SQ 10/18/16 Reported Lisinopril 40 Mg Tablet 1 Tab PO DAILY 10/18/16 Reported Naproxen 500 Mg Tablet 500 Mg PO 12/18/13 Reported Paroxetine Hcl 20 Mg Tablet 20 Mg PO 12/18/13 Reported Impression . IMPRESSION: 1. Progressive dyspnea secondary to acute pulmonary edema. 2. Cardiomyopathy, possibly related to chemotherapy. 3. Colon cancer, status post resection, currently undergoing chemotherapy with FOLFOX. 4. Leukopenia. 5. Anxiety disorder. 6. Type 2 diabetes. 7. Elevated troponin. 8. Abnormal CT chest revealing bilateral effusions and infiltrates. 9. SARS-CoV-2 negative Findings. Hemodynamics. LV 145/34/10. Aortic root 142/65 Coronaries Left main. The left main had no lesions. Left anterior descending. The LAD was a moderate size vessel. It had mid 15% lesion. Left circumflex. The left circumflex was a moderate size vessel. It had distal 30 to 40% lesions. Right coronary artery the right coronary was a moderate size vessel. It had no lesions. Left ventriculogram. The left ventricle shows severely decreased global hypokinesis. Ejection fraction of 20 to 25%. The patient had a brief episode of PSVT during the injection. Aortic root. The aortic root was normal with no evidence of significant AI. <Conclusion> Mild to moderate coronary artery disease with distal 30 to 40% lesions in the le ft circumflex and a mid 15% LAD lesion. Severely decreased LV systolic function on a global basis with an ejection fraction of 20 to 25%. Elevated left-sided pressures. Signed by : Alen Clements MD Electronically Approved : 04/03/2020 15:22:56 Plan . Diuresis per cardiology Started on anticoagulation LifeVest Continue same otherwise No need for antibiotics PRN benzodiazepine SHARRON PADRON MD April 04, 2020 11:01
--- NOTE | 2020-04-04 11:34 | NUR ---
SS following up with discharge planning. SS reviewed pt chart and discussed with pt RN. Order for Life Vest received. SS phoned and faxed order for Life Vest to Kayla at [facility], ; fax [phone]. Pt on PO medications. Discharge plan is to home when ready. SS will continue to follow for discharge planning.
--- NOTE | 2020-04-04 11:42 | RAD ---
AP and Lateral Views of the Chest 04/04/2020 10:33 AM Indication: Shortness of breath Comparison: Chest radiograph March 30, 2020 Findings: There is interval worsening of right upper lobe infiltrate. There are persistent small bilateral pleural effusions and/or atelectasis. Right internal jugular port is stable in appearance. No pneumothorax. No acute osseous changes. IMPRESSION: Interval worsening of right upper lung infiltrate. Findings concerning for pneumonia. Recommend radiographic follow-up to ensure resolution. Electronically signed by: Yves Kimble MD (04/04/2020 11:39 AM) [id number]
--- NOTE | 2020-04-04 11:55 | PDOC ---
PROGRESS NOTES Chief Complaint Chief Complaint acute systolic CHF, w. angina prominent groundglass infiltrate of the right upper lobe with some interspersed smaller areas of consolidation. There is also some consolidation of the lingula with air bronchograms and also of the right middle lobe with severe bronchograms Neutropenia , Cardiomegaly , nonsichemi cardiomyopathy, Ejection Fraction is 25-30%.global hypokinesis of the left ventricle.mild to moderate mitral regurgitation. PA pressure was estimated at 46 mmHg. c/w moderate pulm HTN right greater than left pleural effusions. Anxiety Diabetes-Type II Hypertension Colon ca s/p resection 09/2019 History of Present Illness History of Present Illness 04/03/2020 Patient seen and examined Chart reviewed Discussed with RN URINE OUTPUT LOW, WILL DOSE DAILY IV LASIX Ms Alejandro is a 60yo F w/ PMHx Anxiety, Diabetes-Type II, Hypertension, colon ca s/p resection 09/2019 after abnormal colonoscopy with , and underwent resection with Dr. Ferreira at [facility], with subsequent port placement and christy s been under treatment presumably with FOLFOX with Dr. Rojas. Her last treatment was upcoming. Over the last week she has been experiencing some epigastric discomfort and intermittent constipation and some mild shortness of breath. She has associated nonproductive cough, chest pain on deep inspiration. She went to urgent care had abnormal chest x-ray. She has had no fevers no recent sick contacts, though she does note every after her chemo treatments she does go to the grocery store and has been uncomfortable with a number of people who do not wear masks during the coronavirus pandemic. She herself does wear a mask and frequently washes her hands and face. Labs reveal neutropenia WBC 1.7 with ANC 1.1, Hb 12.7, Platelets 245, Albumin 3.3, Na 139, K 3.6, BUN 13, Cr 0.9, glucose 272, Troponin 0.067, BNP in 4000s, procalcitonin negative. INR 1.1, d dimer elevated. CT scan her chest did not show any pulmonary embolus however shows a diffuse groundglass appearance, MORE on the right side. Patient is suspected of COVID- 19 infection. Patient admitted to hospital for further treatment. Troponin decrased from 0.060 to 0.052. She feels better, but now is persistently tachycardic in the 140s. Shortness of breath and constipation improved. Not hypoxic. Plan: Bolus 1L NSS Will d/w pulmonology her abnormal CT findings and Cardiology as well. This was treated as pulmonary edema/chf on 03/30/20 but this does not seem to the full picture. Vitals Vitals Vital Signs Date Time Temp Pulse Resp B/P (MAP) Pulse Ox O2 Delivery O2 Flow Rate FiO2 04/04/20 10:35 86 125/77 04/04/20 07:00 98.4 18 95 Room Air 98.4 04/03/20 11:17 2.0 Physical Exam General: Alert, Cooperative Heart: Regular rate Lungs: Clear Abdomen: Soft Extremities: No cyanosis Skin: No rashes, No breakdown Labs LABS Laboratory Tests Test 04/03/20 11:56 04/03/20 16:34 04/03/20 21:01 04/04/20 07:27 Glucose (Fingerstick) 64 mg/dL (70-99) 210 mg/dL (70-99) 260 mg/dL (70-99) 111 mg/dL (70-99) Assessment and Plan Assessmemt and Plan Problems Medical Problems: (1) Dyspnea Status: Acute (2) Neutropenia Status: Acute (3) Suspected COVID-19 virus infection Status: Acute Comment Review of Relevant I have reviewed the following items primitivo (where applicable) has been applied. Labs Laboratory Tests Test 04/02/20 16:11 04/02/20 21:09 04/03/20 03:56 04/03/20 05:21 Glucose (Fingerstick) 75 mg/dL (70-99) 131 mg/dL (70-99) 62 mg/dL (70-99) 114 mg/dL (70-99) Test 04/03/20 07:22 04/03/20 10:01 04/03/20 11:56 04/03/20 16:34 Glucose (Fingerstick) 141 mg/dL (70-99) 58 mg/dL (70-99) 64 mg/dL (70-99) 210 mg/dL (70-99) Test 04/03/20 21:01 04/04/20 07:27 Glucose (Fingerstick) 260 mg/dL (70-99) 111 mg/dL (70-99) Laboratory Tests Test 04/03/20 11:56 04/03/20 16:34 04/03/20 21:01 04/04/20 07:27 Glucose (Fingerstick) 64 mg/dL (70-99) 210 mg/dL (70-99) 260 mg/dL (70-99) 111 mg/dL (70-99) Microbiology 03/30/20 Blood Culture - Preliminary, Resulted NO GROWTH AFTER 4 DAYS Medications Current Medications Iohexol (Omnipaque 350 Mg/ml) 90 ml 1X ONCE IV ; Start 03/30/20 at 14:30; Stop 03/30/20 at 14:31; Status DC Info (CONTRAST GIVEN -- Rx MONITORING) 1 each PRN DAILY PRN MC SEE COMMENTS; Start 03/30/20 at 14:30; Stop 04/01/20 at 14:29; Status DC Ondansetron HCl (Zofran) 4 mg PRN Q8HRS PRN IV NAUSEA/VOMITING; Start 03/30/20 at 17:30; Stop 03/30/20 at 20:18; Status DC Insulin Human Lispro (HumaLOG) 0-7 UNITS TIDACHC SQ Last administered on 03/31/20at 12:19; Start 03/30/20 at 21:00 Dextrose (Dextrose 50%-Water Syringe) 12.5 gm PRN Q15MIN PRN IV SEE COMMENTS; Start 03/30/20 at 17:45 Fluticasone Propionate (Flonase) 1 spray QHS NS ; Start 03/30/20 at 21:00 Lisinopril (Prinivil) 40 mg DAILY PO Last administered on 04/04/20at 10:34; Start 03/31/20 at 09:00 Paroxetine HCl (Paxil) 20 mg DAILY PO ; Start 03/31/20 at 09:00; Status Cancel Insulin Glargine (Lantus Syringe) 40 unit QHS SQ Last administered on 04/03/20at 21:00; Start 03/30/20 at 21:00 Paroxetine HCl (Paxil) 40 mg DAILY PO Last administered on 04/04/20at 10:33; Start 03/31/20 at 09:00 Ondansetron HCl (Zofran) 4 mg PRN Q4HRS PRN IV NAUSEA/VOMITING; Start 03/30/20 at 20:15 Enoxaparin Sodium (Lovenox 40mg Syringe) 40 mg Q12HR SQ Last administered on 04/01/20 09:07; Start 03/30/20 at 21:00; Stop 04/01/20 at 17:31; Status DC Psyllium Hydrophilic Mucilloid (Metamucil Fiber Packet) 1 pkt QHS PO Last administered on 03/30/20at 23:08; Start 03/30/20 at 21:00 Polyethylene Glycol (miraLAX PACKET) 17 gm QHS PO ; Start 03/30/20 at 21:00 Magnesium Citrate (Citroma) 296 ml PRN 1X PRN PO CONSTIPATION; Start 03/30/20 at 20:15 Zinc Sulfate (Orazinc) 220 mg DAILY PO Last administered on 04/04/20at 10:33; Start 03/30/20 at 20:15 Hydralazine HCl (Apresoline Inj) 10 mg PRN Q4HRS PRN IVP ELEVATED BP, SEE COMMENTS Last administered on 03/31/20at 12:23; Start 03/30/20 at 20:30; Stop 03/31/20 at 12:30; Status DC Furosemide (Lasix) 20 mg 1X ONCE IVP Last administered on 03/30/20at 23:09; Start 03/30/20 at 21:30; Stop 03/30/20 at 21:31; Status DC Potassium Chloride (Klor-Con) 40 meq 1X ONCE PO Last administered on 03/30/20at 23:08; Start 03/30/20 at 21:30; Stop 03/30/20 at 21:31; Status DC Lorazepam (Ativan) 1 mg PRN Q6HRS PRN PO ANXIETY / AGITATION Last administered on 03/31/20at 12:23; Start 03/30/20 at 21:30 Potassium Chloride (Klor-Con) 40 meq 1X ONCE PO Last administered on 03/31/20at 09:41; Start 03/31/20 at 08:15; Stop 03/31/20 at 08:19; Status DC Sodium Chloride 1,000 ml @ 1,000 mls/hr 1X ONCE IV Last administered on 03/31/20at 10:27; Start 03/31/20 at 10:30; Stop 03/31/20 at 11:29; Status DC Sodium Chloride 1,000 ml @ 125 mls/hr 1X ONCE IV Last administered on 03/31/20at 12:18; Start 03/31/20 at 11:45; Stop 03/31/20 at 12:56; Status DC Metoprolol Tartrate (Lopressor Vial) 5 mg PRN Q6HRS PRN IVP HYPERTENSION Last administered on 03/31/20at 22:28; Start 03/31/20 at 12:30 Acetaminophen (Tylenol) 650 mg PRN Q6HRS PRN PO MILD PAIN 1-3 Last administered on 03/31/20at 17:18; Start 03/31/20 at 17:15 Lisinopril (Prinivil) 5 mg DAILY PO ; Start 04/02/20 at 09:00; Stop 04/01/20 at 15:10; Status DC Metoprolol Succinate (Toprol Xl) 25 mg DAILY PO Last administered on 04/02/20at 08:41; Start 04/02/20 at 09:00; Stop 04/02/20 at 10:56; Status DC Aspirin (Ecotrin) 81 mg DAILYWBKFT PO Last administered on 04/04/20at 08:00; Start 04/02/20 at 08:00 Furosemide (Lasix) 20 mg 1X ONCE IVP Last administered on 04/01/20at 15:31; Start 04/01/20 at 15:15; Stop 04/01/20 at 15:16; Status DC Potassium Chloride (Klor-Con) 20 meq 1X ONCE PO Last administered on 04/01/20at 15:31; Start 04/01/20 at 15:15; Stop 04/01/20 at 15:16; Status DC Enoxaparin Sodium (Lovenox 40mg Syringe) 40 mg Q24H SQ Last administered on 04/04/20at 10:35; Start 04/02/20 at 09:00 Metoprolol Succinate (Toprol Xl) 50 mg DAILY PO Last administered on 04/04/20at 10:35; Start 04/03/20 at 09:00 Metoprolol Succinate (Toprol Xl) 25 mg 1X ONCE PO Last administered on 04/02/20at 12:31; Start 04/02/20 at 11:00; Stop 04/02/20 at 11:01; Status DC Furosemide (Lasix) 40 mg DAILY IVP ; Start 04/03/20 at 09:00; Stop 04/03/20 at 15:35; Status DC Furosemide (Lasix) 40 mg 1X ONCE IVP Last administered on 04/02/20at 12:32; Start 04/02/20 at 12:15; Stop 04/02/20 at 12:16; Status DC Potassium Chloride (Klor-Con) 20 meq 1X ONCE PO Last administered on 04/02/20at 16:21; Start 04/02/20 at 15:15; Stop 04/02/20 at 15:16; Status DC Albuterol Sulfate (Ventolin Neb Soln) 2.5 mg PRN Q6HRS PRN NEB SHORTNESS OF BREATH Last administered on 04/02/20at 21:46; Start 04/02/20 at 21:30 Lorazepam (Ativan) 0.5 mg PRN QHS PRN PO ANXIETY / AGITATION Last administered on 04/03/20at 22:03; Start 04/02/20 at 21:30 Furosemide (Lasix) 40 mg 1X ONCE IVP Last administered on 04/02/20at 22:36; Start 04/02/20 at 21:45; Stop 04/02/20 at 21:46; Status DC Lidocaine HCl (Lidocaine 1% 20ml Vial) 20 ml STK-MED ONCE .ROUTE ; Start 04/03/20 at 08:25; Stop 04/03/20 at 08:26; Status DC Heparin Sodium/ Sodium Chloride 1,500 ml @ As Directed STK-MED ONCE .ROUTE ; Start 04/03/20 at 08:26; Stop 04/03/20 at 08:26; Status DC Iohexol (Omnipaque 300 Mg/ml) 100 ml STK-MED ONCE .ROUTE ; Start 04/03/20 at 08:26; Stop 04/03/20 at 08:26; Status DC Fentanyl Citrate (Fentanyl 2ml Vial) 100 mcg STK-MED ONCE .ROUTE ; Start 04/03/20 at 10:12; Stop 04/03/20 at 10:12; Status DC Midazolam HCl (Versed) 2 mg STK-MED ONCE .ROUTE ; Start 04/03/20 at 10:12; Stop 04/03/20 at 10:12; Status DC Heparin Sodium/ Sodium Chloride (HEPARIN for ARTERIAL LINE FLUSH) 1,000 unit 1X ONCE IART Last administered on 04/03/20at 11:10; Start 04/03/20 at 11:00; Stop 04/03/20 at 11:02; Status DC Heparin Sodium/ Sodium Chloride (HEPARIN for ARTERIAL LINE FLUSH) 1,000 unit 1X ONCE IART Last administered on 04/03/20at 11:10; Start 04/03/20 at 11:00; Stop 04/03/20 at 11:02; Status DC Midazolam HCl (Versed) 2 mg 1X ONCE IV Last administered on 04/03/20at 11:11; Start 04/03/20 at 11:00; Stop 04/03/20 at 11:02; Status DC Fentanyl Citrate (Fentanyl 2ml Vial) 100 mcg 1X ONCE IV Last administered on 04/03/20at 11:11; Start 04/03/20 at 11:00; Stop 04/03/20 at 11:02; Status DC Iohexol (Omnipaque 300 Mg/ml) 100 ml 1X ONCE IART Last administered on 04/03/20at 11:10; Start 04/03/20 at 11:00; Stop 04/03/20 at 11:02; Status DC Lidocaine HCl (Lidocaine 1% 20ml Vial) 20 ml 1X ONCE INJ Last administered on 04/03/20 11:10; Start 04/03/20 at 11:00; Stop 04/03/20 at 11:02; Status DC Furosemide (Lasix) 40 mg DAILY PO Last administered on 04/03/20at 16:22; Start 04/03/20 at 15:30; Stop 04/03/20 at 22:58; Status DC Furosemide (Lasix) 40 mg [id number] PO Last administered on 04/04/20at 10:33; Start 04/03/20 at 23:00 Furosemide (Lasix) 20 mg 1X ONCE PO Last administered on 04/03/20at 23:05; Start 04/03/20 at 23:30; Stop 04/03/20 at 23:31; Status DC Apixaban (Eliquis) 2.5 mg BID PO ; Start 04/04/20 at 11:00; Status Cancel Apixaban (Eliquis) 2.5 mg BID PO ; Start 04/04/20 at 21:00 Furosemide (Lasix) 40 mg 1X ONCE IVP ; Start 04/04/20 at 10:45; Stop 04/04/20 at 10:46; Status DC Info (Anti-Coagulation Monitoring By Pharmacy) 1 each PRN DAILY PRN MC SEE COMMENTS; Start 04/04/20 at 10:45 Active Scripts Active Cephalexin 500 Mg Tablet 1,000 Mg PO BID 10 Days Bactrim Ds Tablet (Sulfamethoxazole/Trimethoprim) 1 Each Tablet 1 Tab PO BID 10 Days Zithromax (Azithromycin) 250 Mg Tablet 1 Pkg PO UD Reported Fluticasone Propionate Nasal [place] (Fluticasone Propionate) 16 Gm [place].susp 16 Gm LENA QHS 30 Days Lisinopril 40 Mg Tablet 40 Mg PO DAILY 30 Days Paroxetine Hcl 40 Mg Tablet 40 Mg PO DAILY 30 Days Lantus Solostar (Insulin Glargine,Hum.rec.anlog) 100 Unit/1 Ml Insuln.pen 40 Units SQ QHS 30 Days Humalog (Insulin Lispro) 100 Unit/1 Ml Insuln.pen Unknown Dose SQ Lisinopril 40 Mg Tablet 1 Tab PO DAILY Naproxen 500 Mg Tablet 500 Mg PO Paroxetine Hcl 20 Mg Tablet 20 Mg PO Vitals/I & O Vital Sign - Last 24 Hours 04/03/20 04/03/20 04/03/20 04/03/20 12:00 12:15 12:30 12:45 Pulse 80 81 88 87 B/P (MAP) 139/86 (103) 132/76 (94) 135/81 (99) 141/81 (101) 04/03/20 04/03/20 04/03/20 04/03/20 13:15 13:45 15:00 15:45 Temp 98.1 98.1 Pulse 79 79 83 84 Resp 18 B/P (MAP) 119/70 (86) 119/65 (83) 119/66 (83) 129/77 (94) Pulse Ox 95 O2 Delivery Room Air 04/03/20 04/03/20 04/03/20 04/04/20 19:45 20:00 23:13 02:22 Temp 98.3 97.4 98.1 98.3 97.4 98.1 Pulse 80 92 Resp 18 20 18 B/P (MAP) 138/50 (79) 135/82 (99) 130/79 (96) Pulse Ox 96 96 95 O2 Delivery Room Air Room Air Room Air Room Air 04/04/20 04/04/20 04/04/20 07:00 10:34 10:35 Temp 98.4 98.4 Pulse 86 86 86 Resp 18 B/P (MAP) 125/77 (93) 125/77 125/77 Pulse Ox 95 O2 Delivery Room Air Intake and Output 04/03/20 04/03/20 04/04/20 14:59 22:59 06:59 Intake Total 240 ml 780 ml 580 ml Output Total 650 ml Balance 240 ml 780 ml -70 ml ANG BALL MD April 04, 2020 11:55
[2020-04-04 12:17] LABS: CALCIUM 8.6 mg/dL (8.5-10.1); CREATININE 0.8 mg/dL (0.6-1.0); GFR 88.2; MAGNESIUM 1.8 mg/dL (1.8-2.4); POTASSIUM 4.3 mmol/L (3.5-5.1)
[2020-04-04 15:00] VITALS: BP 116/59
[2020-04-04 19:27] VITALS: BP 138/76
[2020-04-04] MEDS: FLUTICASONE 50MCG/NASAL SPRAY 16GM BOTTLE. NS SCH (21:00)
[2020-04-04] MEDS: PSYLLIUM HUSK (SUGAR FREE) 1 PKT PACKET PO SCH (21:00)
[2020-04-04] MEDS: POLYETHYLENE GLYCOL 3350 17 GM PACKET. PO SCH (21:00)
[2020-04-04] MEDS: LORazepam 1 MG TABLET PO PRN (22:56)
[2020-04-04] MEDS: APIXABAN 2.5 MG TABLET. PO SCH (22:56)
[2020-04-04 23:00] VITALS: BP 120/78
[2020-04-04] MEDS: INSULIN GLARGINE SYRINGE. SQ SCH (23:02)
[2020-04-05 02:51] VITALS: BP 121/70
[2020-04-05 07:16] VITALS: BP 132/87
[2020-04-05] MEDS: INSULIN LISPRO 300 UNITS/3 ML VIAL. SQ SCH ×3 (07:30→15:15)
[2020-04-05] MEDS: APIXABAN 2.5 MG TABLET. PO SCH (08:34)
[2020-04-05] MEDS: ZINC SULFATE 220 MG CAPSULE. PO SCH (08:34)
[2020-04-05] MEDS: ASPIRIN ENTERIC COATED 81 MG TABLET.DR. PO SCH (08:34)
[2020-04-05] MEDS: PARoxetine 20 MG TABLET PO SCH (08:34)
[2020-04-05] MEDS: LISINOPRIL 20 MG TABLET PO SCH (08:35)
[2020-04-05] MEDS: METOPROLOL SUCC 24HR ER 25 MG TAB.ER.24H. PO SCH (08:35)
[2020-04-05] MEDS: FUROSEMIDE 40 MG TABLET. PO SCH ×2 (08:37→16:25)
[2020-04-05] MEDS: LORazepam 1 MG TABLET PO PRN (08:38)
[2020-04-05] MEDS: ENOXAPARIN 40 MG/0.4 ML SYRINGE. SQ SCH (08:38)
[2020-04-05 10:21] VITALS: BP 116/60
--- NOTE | 2020-04-05 11:20 | PDOC ---
CARDIO Progress Notes Date and Time Date of Service 04/05/2020 Time of Evaluation 1020 Subjective Subjective: No Chest Pain, No shortness of breath, No Palpitations, Other Vitals Vitals Vital Signs Date Time Temp Pulse Resp B/P (MAP) Pulse Ox O2 Delivery O2 Flow Rate FiO2 04/05/20 10:21 98.2 81 20 116/60 (78) 87 Room Air 98.2 Weight Weight [ ] Input and Output Intake and Output Intake and Output 04/05/20 07:00 Intake Total 1500 ml Output Total 300 ml Balance 1200 ml Intake Oral 1500 ml Output Urine Total 300 ml Laboratory Labs Laboratory Tests Test 04/04/20 11:55 04/04/20 11:59 04/04/20 16:30 04/04/20 23:13 Glucose (Fingerstick) 198 mg/dL (70-99) 183 mg/dL (70-99) 210 mg/dL (70-99) Sodium Level 137 mmol/L (136-145) Potassium Level 4.3 mmol/L (3.5-5.1) Chloride Level 102 mmol/L (98-107) Carbon Dioxide Level 33 mmol/L (21-32) Anion Gap 2 (6-14) Blood Urea Nitrogen 21 mg/dL (7-20) Creatinine 0.8 mg/dL (0.6-1.0) Estimated GFR (Cockcroft-Gault) 88.2 Glucose Level 206 mg/dL (70-99) Calcium Level 8.6 mg/dL (8.5-10.1) Magnesium Level 1.8 mg/dL (1.8-2.4) Test 04/05/20 07:19 Glucose (Fingerstick) 139 mg/dL (70-99) Microbiology Micro Microbiology 03/30/20 Blood Culture - Final, Complete NO GROWTH AFTER 5 DAYS Physical Exam HEENT: Neck Supple W Full Motion Chest: Symmetric LUNGS: Other (diminished bases ) Heart: S1S2, RRR (SR), murmurs (2/6 systolic murmur ) Abdomen: Soft N/T Extremities: No Edema Neurology: alert, oriented, follow commands Assessment Assessment 1. Dyspnea with acute systolic CHF. Cath with elevated filling pressure. Better 2. NICM: LVEF of 25%. Cath without significant obstructive disease 3. Accelerated hypertension; controlled 4. Mild troponin elevation; peak 0.06. Type II, demand ischemia 5. Sinus tachycardia, most probably physiologic. Improved, now SR 6. Elevated d-dimer; CTA without PE 7. Diabetes, II 8. H/o colon CA s/p resection 09/2019 9. Leukopenia; current chemotherapy. on 09/26 treatments Recommendations 1. Continue lasix therapy. ACEi/BB, continue per GDMT. Start on statin 2. Lifevest in place 3. Low-dose Eliquis as patient is a high risk for clots given CA and NICM 4. Continue ASA 5. 2000cc FR and 2Gm Na dietary restriction 6. Will re-evaluate LV function in 3 months on an outpatient basis to assess need for AICD implantation. 7. Home health is recommended but refusing at this time. Follow up in office as scheduled GRUPO UGARTE APRN April 05, 2020 11:20
[2020-04-05] MEDS ORDERED: APIX2.5T PO (12:02)
[2020-04-05] MEDS ORDERED: ASPI-612 PO (12:02)
[2020-04-05] MEDS ORDERED: ATOR10TA60 PO (12:02)
[2020-04-05] MEDS ORDERED: FURO40TA4 PO (12:08)
--- NOTE | 2020-04-05 12:37 | PDOC3 ---
Discharge Summary Visit Information Date of Admission: March 30, 2020 Date of Discharge: April 05, 2020 Final Diagnosis acute systolic CHF, w. angina prominent groundglass infiltrate of the right upper lobe with some interspersed smaller areas of consolidation. There is also some consolidation of the lingula with air bronchograms and also of the right middle lobe with severe bronchograms Neutropenia , Cardiomegaly , nonsichemi cardiomyopathy, Ejection Fraction is 25-30%.global hypokinesis of the left ventricle.mild to moderate mitral regurgitation. PA pressure was estimated at 46 mmHg. c/w moderate pulm HTN right greater than left pleural effusions. Anxiety Diabetes-Type II Hypertension Colon ca s/p resection 09/2019 History of Present Illness History of Present Illness Problems Medical Problems: (1) Dyspnea Status: Acute (2) Neutropenia Status: Acute (3) Suspected COVID-19 virus infection Status: Acute Brief Hospital Course Allergies Allergies Coded Allergies Type Severity Reaction Last Updated Verified No Known Drug Allergies 08/11/14 No Vital Signs Vital Signs Date Time Temp Pulse Resp B/P (MAP) Pulse Ox O2 Delivery O2 Flow Rate FiO2 04/05/20 10:21 98.2 81 20 116/60 (78) 87 Room Air 98.2 Lab Results Laboratory Tests Test 04/03/20 16:34 04/03/20 21:01 04/04/20 07:27 04/04/20 11:55 Glucose (Fingerstick) 210 mg/dL (70-99) 260 mg/dL (70-99) 111 mg/dL (70-99) 198 mg/dL (70-99) Test 04/04/20 11:59 04/04/20 16:30 04/04/20 23:13 04/05/20 07:19 Sodium Level 137 mmol/L (136-145) Potassium Level 4.3 mmol/L (3.5-5.1) Chloride Level 102 mmol/L (98-107) Carbon Dioxide Level 33 mmol/L (21-32) Anion Gap 2 (6-14) Blood Urea Nitrogen 21 mg/dL (7-20) Creatinine 0.8 mg/dL (0.6-1.0) Estimated GFR (Cockcroft-Gault) 88.2 Glucose Level 206 mg/dL (70-99) Calcium Level 8.6 mg/dL (8.5-10.1) Magnesium Level 1.8 mg/dL (1.8-2.4) Glucose (Fingerstick) 183 mg/dL (70-99) 210 mg/dL (70-99) 139 mg/dL (70-99) Test 04/05/20 11:33 Glucose (Fingerstick) 115 mg/dL (70-99) Laboratory Tests Test 04/04/20 16:30 04/04/20 23:13 04/05/20 07:19 04/05/20 11:33 Glucose (Fingerstick) 183 mg/dL (70-99) 210 mg/dL (70-99) 139 mg/dL (70-99) 115 mg/dL (70-99) Brief Hospital Course Ms. Alejandro is a 60 old female undergoing chemotherapy for colon cancer, geovanna Rojas with FOLFOX. admit for increasing shortness of breath, some epigastric fullness and discomfort, constipation. CT angiogram ruled out PE, noted bilateral pleural effusions, right greater than left. and ground glass opacities, CHF, poor output, cardiac cath 04/03, no acute vessel diseaase meds changed fitted with lifevest for DC, meds change,d f/u Dr. Fontana May 13 Discharge Information Condition at Discharge: Improved Follow Up: Weeks Disposition/Orders: D/C to Home Scheduled Apixaban (Eliquis) 2.5 Mg Tablet, 2.5 MG PO BID for blood thinner, #60 Prescribed by: ANG BALL on 04/05/20 1202 Aspirin (Aspirin Ec) 81 Mg Tablet.dr 81 MG PO DAILYWBKFT for cardiac, #100 Prescribed by: ANG BALL on 04/05/20 1202 Atorvastatin Calcium (Atorvastatin Calcium) 10 Mg Tablet, 10 MG PO QHS for cholesterol, #30 Ref 1 Prescribed by: ANG BALL on 04/05/20 1202 Azithromycin (Zithromax) 250 Mg Tablet, 1 PKG PO UD, #6 Prescribed by: CRISTIN MCCARTHY MD on 10/18/16 2139 Cephalexin (Cephalexin) 500 Mg Tablet, 1,000 MG PO BID for 10 Days, #40 Prescribed by: MARCOS RAI APRN on 04/23/18 1338 Fluticasone Propionate (Fluticasone Propionate Nasal [place]) 16 Gm [place].susp, 16 GM LENA QHS for Allergic rhinitis for 30 Days, #1 (Reported) Entered as Reported by: UMM BLEDSOE MD on 03/30/201736 Last Action: Continued on 03/30/201737 by UMM BLEDSOE MD Furosemide (Furosemide) 40 Mg Tablet, 40 MG PO BIDACBL for CHF, #60 Prescribed by: ANG BALL on 04/05/20 1208 Insulin Glargine,Hum.rec.anlog (Lantus Solostar) 100 Unit/1 Ml Insuln.pen, 40 UNITS SQ QHS for dm2 for 30 Days, #1 (Reported) Entered as Reported by: UMM BLEDSOE MD on 03/30/201736 Last Action: Converted on 03/30/201737 by UMM BLEDSOE MD Lisinopril (Lisinopril) 40 Mg Tablet, 1 TAB PO DAILY, #30 Ref 5 (Reported) Entered as Reported by: ISHMAEL JC on 10/18/161917 Last Action: Continued on 03/30/201737 by UMM BLEDSOE MD Lisinopril (Lisinopril) 40 Mg Tablet, 40 MG PO DAILY for HTN/DM2 for 30 Days, #30 (Reported) Entered as Reported by: UMM BLEDSOE MD on 03/30/201736 Last Action: New Order on 03/30/201736 by UMM BLEDSOE MD Paroxetine Hcl (Paroxetine Hcl) 40 Mg Tablet, 40 MG PO DAILY for Mood for 30 Days, #30 (Reported) Entered as Reported by: UMM BLEDSOE MD on 03/30/201736 Last Action: Converted on 03/30/201737 by UMM BLEDSOE MD Sulfamethoxazole/Trimethoprim (Bactrim Ds Tablet) 1 Each Tablet, 1 TAB PO BID for 10 Days, #20 Prescribed by: MARCOS RAI APRN on 04/23/18 1338 Miscellaneous Medications Insulin Lispro (Humalog) 100 Unit/1 Ml Insuln.pen, Unknown Dose SQ, (Reported) Entered as Reported by: ISHMAEL JC on 10/18/161917 Naproxen (Naproxen) 500 Mg Tablet, 500 MG PO, (Reported) Entered as Reported by: ADELA DECKER on 12/18/13240 Paroxetine Hcl (Paroxetine Hcl) 20 Mg Tablet, 20 MG PO, (Reported) Entered as Reported by: ADELA DECKER on 12/18/13240 Last Action: Continued on 03/30/20 1738 by UMM BLEDSOE MD Patient Instructions Patient Instructions > 3 0min face to face ANG BALL MD April 05, 2020 12:36
--- NOTE | 2020-04-05 13:43 | PDOC ---
PULMONARY PROGRESS NOTES Subjective Patient with no increasing shortness of air no chest pain no pressure Vitals Vital Signs Date Time Temp Pulse Resp B/P (MAP) Pulse Ox O2 Delivery O2 Flow Rate FiO2 04/05/20 12:48 Room Air 90.0 04/05/20 10:21 98.2 81 20 116/60 (78) 87 98.2 ROS: No Nausea, No Chest Pain, No Abdominal Pain, No Increase Cough General: Alert Lungs: Clear Cardiovascular: S1, S2 Abdomen: Soft Neuro Exam: Alert Extremities: No Edema Skin: Warm Labs Laboratory Tests Test 04/03/20 16:34 04/03/20 21:01 04/04/20 07:27 04/04/20 11:55 Glucose (Fingerstick) 210 mg/dL (70-99) 260 mg/dL (70-99) 111 mg/dL (70-99) 198 mg/dL (70-99) Test 04/04/20 11:59 04/04/20 16:30 04/04/20 23:13 04/05/20 07:19 Sodium Level 137 mmol/L (136-145) Potassium Level 4.3 mmol/L (3.5-5.1) Chloride Level 102 mmol/L (98-107) Carbon Dioxide Level 33 mmol/L (21-32) Anion Gap 2 (6-14) Blood Urea Nitrogen 21 mg/dL (7-20) Creatinine 0.8 mg/dL (0.6-1.0) Estimated GFR (Cockcroft-Gault) 88.2 Glucose Level 206 mg/dL (70-99) Calcium Level 8.6 mg/dL (8.5-10.1) Magnesium Level 1.8 mg/dL (1.8-2.4) Glucose (Fingerstick) 183 mg/dL (70-99) 210 mg/dL (70-99) 139 mg/dL (70-99) Test 04/05/20 11:33 Glucose (Fingerstick) 115 mg/dL (70-99) Laboratory Tests Test 04/04/20 16:30 04/04/20 23:13 04/05/20 07:19 04/05/20 11:33 Glucose (Fingerstick) 183 mg/dL (70-99) 210 mg/dL (70-99) 139 mg/dL (70-99) 115 mg/dL (70-99) Medications Active Scripts Medications Dose Route/Sig Max Daily Dose Days Date Category Fluticasone Propionate Nasal [place] (Fluticasone Propionate) 16 Gm [place].susp 16 Gm LENA QHS 30 03/30/20 Reported Lisinopril 40 Mg Tablet 40 Mg PO DAILY 30 03/30/20 Reported Paroxetine Hcl 40 Mg Tablet 40 Mg PO DAILY 30 03/30/20 Reported Lantus Solostar (Insulin Glargine,Hum.rec.anlog) 100 Unit/1 Ml Insuln.pen 40 Units SQ QHS 30 03/30/20 Reported Cephalexin 500 Mg Tablet 1,000 Mg PO BID 10 04/23/18 Rx Bactrim Ds Tablet (Sulfamethoxazole/Trimethoprim) 1 Each Tablet 1 Tab PO BID 10 04/23/18 Rx Zithromax (Azithromycin) 250 Mg Tablet 1 Pkg PO UD 10/18/16 Rx Humalog (Insulin Lispro) 100 Unit/1 Ml Insuln.pen Unknown Dose SQ 10/18/16 Reported Lisinopril 40 Mg Tablet 1 Tab PO DAILY 10/18/16 Reported Naproxen 500 Mg Tablet 500 Mg PO 12/18/13 Reported Paroxetine Hcl 20 Mg Tablet 20 Mg PO 12/18/13 Reported Impression . IMPRESSION: 1. Progressive dyspnea secondary to acute pulmonary edema. 2. Cardiomyopathy, possibly related to chemotherapy. 3. Colon cancer, status post resection, currently undergoing chemotherapy with FOLFOX. 4. Leukopenia. 5. Anxiety disorder. 6. Type 2 diabetes. 7. Elevated troponin. 8. Abnormal CT chest revealing bilateral effusions and infiltrates. 9. SARS-CoV-2 negative Findings. Hemodynamics. LV 145/34/10. Aortic root 142/65 Coronaries Left main. The left main had no lesions. Left anterior descending. The LAD was a moderate size vessel. It had mid 15% lesion. Left circumflex. The left circumflex was a moderate size vessel. It had distal 30 to 40% lesions. Right coronary artery the right coronary was a moderate size vessel. It had no lesions. Left ventriculogram. The left ventricle shows severely decreased global hypokinesis. Ejection fraction of 20 to 25%. The patient had a brief episode of PSVT during the in jection. Aortic root. The aortic root was normal with no evidence of significant AI. <Conclusion> Mild to moderate coronary artery disease with distal 30 to 40% lesions in the left circumflex and a mid 15% LAD lesion. Severely decreased LV systolic function on a global basis with an ejection fraction of 20 to 25%. Elevated left-sided pressures. Signed by : Alen Clements MD Electronically Approved : 04/03/2020 15:22:56 Plan . Respiratory status compensated, patient did receive her life vest Possible discharge today Continue anticoagulation No signs of sleep apnea Follow-up with me as needed SHARRON PADRON MD April 05, 2020 13:43
[2020-04-05 14:06] VITALS: BP 116/60
[2020-04-05] MEDS ORDERED: ATORVASTATIN CALCIUM 10 MG TABLET. PO SCH (21:00)
== END 2020-04-05 17:35 | disposition home or self-care (01) | DRG 286 ==
LOC: ER 12:45 → ED HOLD 18:49 → 6 SOUTH 21:22 → 2 NORTH 03-31 18:37
PROVIDERS: ADMIT Internal Medicine; ATTEND Internal Medicine
PROC: 4A023N7 Measurement of Cardiac Sampling and Pressure, Left Heart, Percutaneous Approach (ICD-10-PCS; principal; 2020-04-03)
PROC: B2111ZZ Fluoroscopy of Multiple Coronary Arteries using Low Osmolar Contrast (ICD-10-PCS; 2020-04-03)
PROC: B3101ZZ Fluoroscopy of Thoracic Aorta using Low Osmolar Contrast (ICD-10-PCS; 2020-04-03)
PROC: B2151ZZ Fluoroscopy of Left Heart using Low Osmolar Contrast (ICD-10-PCS; 2020-04-03)
DX: I25.119 Atherosclerotic heart disease of native coronary artery with unspecified angina pectoris (principal); R65.11 Systemic inflammatory response syndrome (SIRS) of non-infectious origin with acute organ dysfunction; I50.41 Acute combined systolic (congestive) and diastolic (congestive) heart failure; I24.8 Other forms of acute ischemic heart disease; I42.8 Other cardiomyopathies; Z20.828 Contact with and (suspected) exposure to other viral communicable diseases; D70.9 Neutropenia, unspecified; E11.9 Type 2 diabetes mellitus without complications; F41.9 Anxiety disorder, unspecified; I27.20 Pulmonary hypertension, unspecified; I34.0 Nonrheumatic mitral (valve) insufficiency; K59.09 Other constipation; T45.1X5A Adverse effect of antineoplastic and immunosuppressive drugs, initial encounter; Z79.01 Long term (current) use of anticoagulants; Z79.82 Long term (current) use of aspirin; Z80.0 Family history of malignant neoplasm of digestive organs; Z82.49 Family history of ischemic heart disease and other diseases of the circulatory system; Z83.3 Family history of diabetes mellitus; Z85.048 Personal history of other malignant neoplasm of rectum, rectosigmoid junction, and anus; Z87.891 Personal history of nicotine dependence; Z90.49 Acquired absence of other specified parts of digestive tract
CPT/HCPCS: 36415; 71045; 71046; 71275; 80048; 80053; 80061; 82962; 83605; 83735; 83880; 84145; 84443; 84484; 85007; 85025; 85379; 85384; 85610; 85730; 87040; 87635; 93005; 93306; 93458; 93567; 94640; 94760; 99152; 99153; C1769; C1892; J0360; J1644; J1650; J1815; J1940; J2250; J3010; J3490; J7030; Q9967; G0378; J7613